=== PATIENT | female | born 1950 | race Caucasian/White ===

== ENCOUNTER → 2016-04-26 12:55 | Outpatient (CLI) | payer MEDICARE, MEDICAID ==
[2013-09-06] VITALS: BMI 25.7
[~2016-04-26 12:55] MED LIST: ASPIRIN325 MG PO; BENZONATATE200 MG PO; ELAVIL25 MG PO; FLORAJEN3 CAPS460 MG PO; GLUCOPHAGE1000 MG PO; HUMALOG 30100 UNITS/ SC; HUMALOG MIX 75/10 ML SQ; HYDROCODONE-APA1 TAB PO; IMDUR30 MG PO; IMDUR60 MG PO; IPRAT-ALBUT 0.5-3 ML UPD; LANTUS INSULIN10 ML SC; LEVEMIR100 U/M1 SC; LEXAPRO10 MG PO; LIPITOR80 MG PO; LISINOPRIL5 MG PO; METOPROLOL TART50 MG PO; MUCINEX600 MG PO; NEURONTIN 400400 MG PO; NITROSTAT0.4 MG SL; PLAVIX75 MG PO; PREDNISONE10 MG PO; TOPROL XL25 MG PO; VIBRAMYCIN 100100 MG PO
[2016-07-03 13:38] VITALS: BMI 22.3
== END | disposition home or self-care (01) ==
LOC: D.MRI 12:00
DX: R53.1 Weakness (principal)

== ENCOUNTER → 2016-05-08 13:05 | Outpatient (CLI) | payer MEDICARE, MEDICAID ==
[2013-09-06] VITALS: BMI 25.7
[~2016-05-08 13:05] MED LIST changes: +LOPRESSOR25 MG PO; +MIDODRINE HCL5 MG PO
[2016-07-29 11:50] VITALS: BMI 21.4
== END | disposition home or self-care (01) ==
LOC: D.US 13:05
DX: R41.3 Other amnesia (principal); N64.4 Mastodynia; I25.10 Atherosclerotic heart disease of native coronary artery without angina pectoris; I65.23 Occlusion and stenosis of bilateral carotid arteries

== ENCOUNTER 2016-06-02 22:58 | Emergency (ER) | payer MEDICARE, MEDICAID ==
[2013-09-06] VITALS: BMI 25.7
[~2016-06-02 22:58] MED LIST changes: -BENZONATATE200 MG PO; -ELAVIL25 MG PO; -FLORAJEN3 CAPS460 MG PO; -GLUCOPHAGE1000 MG PO; -HYDROCODONE-APA1 TAB PO; -IPRAT-ALBUT 0.5-3 ML UPD; -LEVEMIR100 U/M1 SC; -LISINOPRIL5 MG PO; -LOPRESSOR25 MG PO; -MIDODRINE HCL5 MG PO; -MUCINEX600 MG PO; -PREDNISONE10 MG PO; -VIBRAMYCIN 100100 MG PO
== END 2016-06-03 01:00 | disposition home or self-care (01) ==
LOC: D.ER 22:58
DX: S80.02XA Contusion of left knee, initial encounter (principal); S80.01XA Contusion of right knee, initial encounter; W19.XXXA Unspecified fall, initial encounter; Y93.89 Activity, other specified; Y92.59 Other trade areas as the place of occurrence of the external cause; M25.561 Pain in right knee; R07.81 Pleurodynia; F17.200 Nicotine dependence, unspecified, uncomplicated; E78.00 Pure hypercholesterolemia, unspecified; I10 Essential (primary) hypertension; E11.9 Type 2 diabetes mellitus without complications; Z79.4 Long term (current) use of insulin; I63.9 Cerebral infarction, unspecified; G81.94 Hemiplegia, unspecified affecting left nondominant side

== ENCOUNTER 2016-07-02 01:42 | Inpatient (IN) | payer MEDICARE ==
[~2016-07-02] VITALS: Ht 172.7 cm; Wt 72.4 kg
[2016-07-02 02:15] LABS: HEMOGLOBIN 15.2 g/dL (12-16); LYMPHOCYTES 9.8 % (15-50); MCH 28.5 pg (26.0-34.0); MCHC 34.5 g/dL (31.0-37.0); MCV 82.6 fL (80.0-100.0); MEAN PLATELET VOLUME 11.4 fL (7.4-10.4); NEUTROPHILS 80.7 % (40-80); RBC 5.33 10x6/uL (4.00-5.40); RDW 13.3 % (11.5-14.5); WBC 10.1 10x3/uL (4.8-10.8)
[2016-07-02 02:21] LABS: PLATELET COUNT 100 10x3/uL (130-400)
[2016-07-02 02:26] LABS: ALBUMIN 2.7 g/dL (3.4-5.0); ANION GAP 12.1 mmol/L (8-16); BILIRUBIN - TOTAL 0.73 mg/dL (0.2-1.3); CALCIUM 8.8 mg/dL (8.5-10.1); CARBON DIOXIDE 27.7 mmol/L (21.0-32.0); CREATININE - SERUM 1.1 mg/dL (0.6-1.3); POTASSIUM - SERUM 3.8 mmol/L (3.5-5.1); PROTEIN - SERUM 6.7 g/dL (6.4-8.2)
--- NOTE | 2016-07-02 07:35 | NUR ---
RECEIVED PATIENT VIA WHEELCHAIR FROM ED. PATIENT ALERT/ORIENTED. ASSISTED TO RESTROOM. CALL LIGH PLACED WITHIN REACH. O2 AT 2L VIA NASAL CANULA. 18 GAUGE SALINE LOCKED TO LEFT HAND. PATIENT ASSISTED TO RESTROOM. NO DISTRESS.
[2016-07-02] MEDS ORDERED: LISINOPRIL5 MG PO (09:48)
[2016-07-02] MEDS ORDERED: GLUCOPHAGE1000 MG PO (09:49)
[2016-07-02 09:56] VITALS: BP 105/59; BMI 22.2
--- NOTE | 2016-07-02 10:06 | NUR ---
ASSESSMENT, HISTORY AND MED REC COMPLETED. SCDS EXPLAINED TO PATIENT AND PATIENT REFUSES AT THIS TIME. NON SLIP SOCKS APPLIED AND PT ASKED TO CALL FOR ASSISTANCE.
[2016-07-02 11:38] VITALS: BP 141/79
--- NOTE | 2016-07-02 14:10 | NUR ---
DANIEL LOCKE PAGED TO REQUEST MEDICATION FOR PATIENT FOR HEADACHE. PATIENT STATES SHE NORMALLY TAKES IBUPROFEN AT HOME. AWAITING CALL BACK.
--- NOTE | 2016-07-02 14:51 | NUR ---
MEDICATED FOR HEADACHE AT THIS TIME. NON PRODUCTIVE COUGH NOTED.
[2016-07-02 16:18] VITALS: BP 145/81
--- NOTE | 2016-07-02 17:20 | NUR ---
FSBS 309. 8 UNITS HUMALOG ADMINISTERED PER SLIDING SCALE. NO DISTRESS.
[2016-07-02 20:00] VITALS: BP 111/65
--- NOTE | 2016-07-02 20:08 | NUR ---
PT AWAKE, ALERT, ORIENTED, HAVING HYPOXIC EPISODES, O2 SAT @ 88% ON 2 LPM. I DISCUSSED WITH RT, INCREASING O2 VIA NC TO 3LPM. PT IS IN NO ACUTE DISTRESS. CONTINUE TO MONITOR CLOSELY.
[2016-07-03] VITALS: BP 115/67
--- NOTE | 2016-07-03 00:21 | NUR ---
PT IS REQUESTING HER AMITRIPTYLINE FOR SLEEP, ALONG WITH SOMETHING FOR CONSISTENT COUGH AND INCREASED CONGESTION, AND HER PRN NORCO FOR PAIN R/T HER CHRONIC WOUND ON HER LEFT LEG. WILL CALL ON-CALL PHYSICIAN/CABANA ATTENDANT FOR ORDERS. CONTINUE TO MONITOR CLOSELY.
[2016-07-03 04:00] VITALS: BP 112/60
[2016-07-03 04:40] LABS: BASOPHILS 0.1 % (0.0-2.0); EOSINOPHILS 0 % (0-7); HEMATOCRIT 41.9 % (36.0-48.0); HEMOGLOBIN 14.2 g/dL (12-16); IMMATURE GRANULOCYTES 0.3 % (0-5); MCH 28.3 pg (26.0-34.0); MCHC 33.9 g/dL (31.0-37.0); MCV 83.6 fL (80.0-100.0); MEAN PLATELET VOLUME 11.6 fL (7.4-10.4); MONOCYTES 10.3 % (2-11); NEUTROPHILS 83.3 % (40-80); RBC 5.01 10x6/uL (4.00-5.40); RDW 13.2 % (11.5-14.5)
[2016-07-03 05:03] LABS: PLATELET COUNT 122 10x3/uL (130-400)
[2016-07-03 05:23] LABS: ANION GAP 12.9 mmol/L (8-16); CALCIUM 8.7 mg/dL (8.5-10.1); POTASSIUM - SERUM 3.9 mmol/L (3.5-5.1)
--- NOTE | 2016-07-03 05:30 | NUR ---
PT LYING IN BED, EYES CLOSED, RESPIRATIONS EVEN AND UNLABORED. PT IS EASILY ROUSABLE TO VERBAL STIMULI, DENIES ANY NEEDS. CONTINUE TO MONITOR CLOSELY.
--- NOTE | 2016-07-03 07:00 | NUR ---
PT. WAS RECEIVED AT THE BEGINNING OF THIS SHIFT AWAKE AND ORIENTED X 3. NO VERBAL COMPLAINTS AT THIS TIME. VITAL SIGNS WNL. LEFT HAND WITH SALINE LOCK THAT IS PATENT. WILL BE MONITORING HER AND ASSISTING PRN WITH ADL'S. CALL LIGHT IS IN REACH. 02 PER NC GOING AT 2L/MIN.
[2016-07-03 08:00] VITALS: BP 104/64
[2016-07-03 12:00] VITALS: BP 107/55
[2016-07-03] MEDS ORDERED: ELAVIL25 MG PO (12:06)
[2016-07-03] MEDS ORDERED: HYDROCODONE-APA1 TAB PO (12:07)
[2016-07-03 13:38] VITALS: Ht 172.7 cm; Wt 72.4 kg
--- NOTE | 2016-07-03 15:18 | NUR ---
PT. WAS GIVEN A TYLENOL 650MG AT 11:30AM. DR. GRAY GAVE NEW ORDER FOR HYDROCODONE 10MG ONE TIME DOSE DUE TO PT CALLING HIS OFFICE AND WANTING SOMETHING STRONGER THAN TYLENOL. WILL MONITOR FOR ANY ADVERSE REACTION. CALL LIGHT IS IN REACH.
--- NOTE | 2016-07-03 15:24 | NUR ---
TYLENOL WAS GIVEN AT 11:30AM FOR A HEADACHE. THE NOTE ABOVE REGARDING DR. GRAY WAS CHARTED ON WRONG PT. THIS PT. DID GET A NORCO 10MG AT 1:00PM FOR A HEADACHE WELL.
[2016-07-03 17:21] VITALS: BP 96/49
--- NOTE | 2016-07-03 19:24 | NUR ---
PT AWAKE, ALERT, ORIENTED, DENIES ANY NEEDS. PT STATES SHE IS FEELING BETTER. CONTINUE TO MONITOR CLOSELY.
[2016-07-03 20:00] VITALS: BP 99/42
--- NOTE | 2016-07-03 22:20 | NUR ---
[facility]T 478 GLUCOSE. WILL RECHECK AFTER 20 UNITS OF HUMALOG.
[2016-07-04] VITALS: BP 121/75
--- NOTE | 2016-07-04 00:28 | NUR ---
SPOKE WITH CORNELIA PIERRE R/T PTS FSBS. WILL ADMINISTER HUMALOG PER INTERMEDIATE S/S AND RECHECK PRN. CONTINUE TO MONITOR CLOSELY.
[2016-07-04 04:00] VITALS: BP 112/69
--- NOTE | 2016-07-04 04:52 | NUR ---
PT LYING IN BED, EYES CLOSED, RESPIRATIONS EVEN AND UNLABORED. PT EASILY ROUSABLE TO VERBAL STIMULI. CONTINUE TO MONITOR CLOSELY.
[2016-07-04 05:41] LABS: BASOPHILS 0.1 % (0.0-2.0); EOSINOPHILS 0.1 % (0-7); HEMATOCRIT 38.6 % (36.0-48.0); HEMOGLOBIN 13.3 g/dL (12-16); IMMATURE GRANULOCYTES 0.6 % (0-5); LYMPHOCYTES 10.3 % (15-50); MCH 28.7 pg (26.0-34.0); MCHC 34.5 g/dL (31.0-37.0); MCV 83.4 fL (80.0-100.0); MONOCYTES 14.4 % (2-11); NEUTROPHILS 74.5 % (40-80); PLATELET COUNT 142 10x3/uL (130-400); RBC 4.63 10x6/uL (4.00-5.40); RDW 13.2 % (11.5-14.5)
[2016-07-04 05:45] LABS: WBC 11.5 10x3/uL (4.8-10.8)
--- NOTE | 2016-07-04 05:54 | NUR ---
SKILLED NURSING CASE MANAGER EDEN INFORMED ME THAT PT HAD A RUN OF V-TACH/230 BPM @ APPROX 02:30 THIS AM. PT STATES THAT SHE DOES HAVE A HX OF DYSRHYTHMIA. PT STATES SHE CAN TELL SOMETIMES WHEN HER HURT STARTS TO BEAT ABNORMALLY, BUT DENIES FEELING ANYTHING DURING THIS EPISODE. PT IS ALSO CONCERNED THAT SHE MAY HAVE TO GO HOME WITH O2, AND IS ASKING IF SHE WILL BE D/C'D TODAY. WILL CONTINUE TO MONITOR CLOSELY.
[2016-07-04 05:56] LABS: ANION GAP 10.2 mmol/L (8-16); CALCIUM 8.7 mg/dL (8.5-10.1); CARBON DIOXIDE 31.5 mmol/L (21.0-32.0); CREATININE - SERUM 0.9 mg/dL (0.6-1.3); POTASSIUM - SERUM 3.7 mmol/L (3.5-5.1)
--- NOTE | 2016-07-04 07:28 | NUR ---
RESTS IN BED. RESP UL ON . IV PATENT. NO NEEDS VOICED. CALL LIGHT IN REACH. WILL CONT. PLAN OF CARE.
[2016-07-04 08:13] VITALS: BP 131/80
[2016-07-04 11:38] VITALS: BP 134/73
[2016-07-04 15:20] VITALS: BP 128/77
--- NOTE | 2016-07-04 19:46 | NUR ---
RESUMED CARE OF PT, 02-2L, IV-L. HAND-SL, [id number], SITTING UP IN CHAIR, DENIES ANY NEEDS, CALL LIGHT IN REACH, WILL CONTINUE TO MONITOR
[2016-07-04 20:00] VITALS: BP 135/72
[2016-07-05] VITALS: BP 142/76
[2016-07-05 04:00] VITALS: BP 123/72
--- NOTE | 2016-07-05 05:15 | NUR ---
HEALTH CARE LAW SPECIALIST AT BEDSIDE TO OBTAIN VITALS, CALL LIGHT IN REACH. WILL CONTINUE WITH PLAN OF CARE.
[2016-07-05 05:41] LABS: BASOPHILS 0.1 % (0.0-2.0); EOSINOPHILS 0.1 % (0-7); HEMATOCRIT 40.8 % (36.0-48.0); HEMOGLOBIN 13.5 g/dL (12-16); IMMATURE GRANULOCYTES 0.8 % (0-5); MCH 28.1 pg (26.0-34.0); MCHC 33.1 g/dL (31.0-37.0); MEAN PLATELET VOLUME 11.7 fL (7.4-10.4); PLATELET COUNT 153 10x3/uL (130-400); RDW 13.1 % (11.5-14.5); WBC 10.8 10x3/uL (4.8-10.8)
[2016-07-05 05:55] LABS: CALC OSMOLALITY 292 mosm/kg (275-300); CALCIUM 8.6 mg/dL (8.5-10.1); CARBON DIOXIDE 31.1 mmol/L (21.0-32.0); CHLORIDE - SERUM 103 mmol/L (98-107); CREATININE - SERUM 0.7 mg/dL (0.6-1.3); GLUCOSE 317 mg/dL (74-106); SODIUM 139 mmol/L (136-145); UREA NITROGEN 22 mg/dL (7-18); eGFR NON AFRICAN AMERICAN 89 mL/min (90-120)
[2016-07-05 08:31] VITALS: BP 165/94
--- NOTE | 2016-07-05 09:22 | NUR ---
SITTING UP IN CHAIR. PT HERE TO WALK PT IN HALLWAY. TUBING FOR IV AND IV PIGGY BACK CHANGED. COUGHING BUT NO SPUTUM. NICODERM PATCH PLACED ON LEFT ARM
[2016-07-05 12:47] VITALS: BP 127/68
--- NOTE | 2016-07-05 14:54 | EC ---
PATIENT:YINKA JACKSON DATE OF SERVICE: 07/02/16 SEX: F MEDICAL RECORD: [id number] DATE OF : [birth year] LOCATION:D. D.210 AGE OF PATIENT: 66 ADMISSION DATE: 07/02/16 REFERRING PHYSICIAN: INTERPRETING PHYSICIAN: CEE ZAPATA M.D. ECHOCARDIOGRAM REPORT ECHO CHARGES 4 ECHO COMPLETE CLINICAL DIAGNOSIS: DYSPNEA ECHOCARDIOGRAPHIC MEASUREMENTS (adult normal given) AC root (d.<3.7cm) 3.0 LV Septum d (<1.2 cm> 1.5 Valve Excursion 2.0 LV Septum (systole) 2.0 Left Atria (s.<4.0cm> 5.0 LVPW d(<1.2cm) 1.6 RV (d.<2.3cm) 2.3 LVPW (sytole) 1.9 LV diastole(<5.6CM) 5.0 MV E-F(>70mm/sec) LV systole 3.3 LVOT Diameter 1.9 MV exc.(>10mm) Est.ejection fraction (50-75%) Pericardial Effusion N DOPPLER: LVIT A 48.0 E 109 LA RVSP 38.5 LVOT 85.0 AOP1/2T Asc. Ao 171 RVOT 83.0 RA PA 109 AV Gradient Peak 12.0 AV Mean 5.7 AV Area 1.4 MV Gradient Peak 6.7 MV Mean 2.4 MV Area COMMENTS: Brass Molder Helper: Nigel TEJEDAOE Time Cycle Operator:1 Dr. Watson TAPE# PACS DATE OF SERVICE: 07/03/2016 Echocardiogram Report REFERRING PHYSICIAN: Marily Henderson MD INDICATION: Dyspnea. DESCRIPTION: Left ventricle demonstrates left ventricular hypertrophy. There is mild LV dysfunction noted. Estimated ejection is in the order of 40%. ECHOCARDIOGRAM REPORT [id number] YINKA JACKSON Mitral valve is structurally normal. There is ____ regurgitation seen. Left atrium is moderately dilated. The aortic valve is trileaflet. There is no stenosis or regurgitation seen. Right ventricle is normal size and function. Tricuspid valve is structurally normal. There is mild to moderate regurgitation noted. Right ventricular systolic pressure is elevated at 38 mmHg. There is no pericardial effusion seen. IMPRESSION: 1. Left ventricular hypertrophy with mild left ventricular dysfunction with ejection fraction of 40%. 2. Mild mitral regurgitation. 3. Mild to moderate tricuspid regurgitation. TRANSINT:[id number] Voice Confirmation ID: [id number] DOCUMENT ID: [id number] CEE ZAPATA M.D. at 1454 CC: [id number] DICTATION DATE: 07/04/16 1023 ESCAPEMENT MATCHER: 07/04/16 1230 ADM IN [place] [id number] [place] [id number]
--- NOTE | 2016-07-05 16:34 | NUR ---
Patient Name: YINKA JACKSON Admission Status: ER Accout number: [id number] Admission Date: 07-02-2016 : 1950 Admission Diagnosis:CHRONIC OBSTRUCTIVE PULMONARY DISEASE W (ACUTE) EXACERB Attending: JANNA Current LOS: 3 Anticipated DC Date: Planned Disposition: Home Primary Insurance: MEDICARE A & B Discharge Planning Comments: * Is the patient Alert and Oriented? Yes 0 * How many steps to enter\exit or inside your home? 4 0 * PCP DR. BURGESS 0 * Pharmacy [address] 0 * Preadmission Environment Home with Family 0 * ADLs Independent 0 * Equipment Cane 0 * Other Equipment NO MEDICAL EQUIPMENT PROVIDER PREFERENCE 0 * List name and contact numbers for known caregivers / representatives who currently or will assist patient after discharge: CORINNE BYNUME, DTR, 0 * Community resources currently utilized None 0 * Please name any agencies selected above. NONE 0 * Additional services required to return to the preadmission environment? No 0 * Can the patient safely return to the preadmission environment? Yes 0 * Has this patient been hospitalized within the prior 30 days at any hospital? No 0 CM MET WITH PT IN ROOM TO DISCUSS DISCHARGE PLANNING AND NEEDS. PT REPORTS LIVING AT HOME INDEPENDENTLY, HER ADULT DAUGHTER LIVES WITH HER. PT HAS A CANE WITH NO MEDICAL EQUIPMENT PROVIDER PREFERENCE. PT HAS NO OUTSIDE SERVICES ASSISTING IN THE HOME. CM DISCUSSED AVAILABILITY OF HOME HEALTH, REHAB SERVICES AND MEDICAL EQUIPMENT. PT DENIES DISCHARGE NEEDS, REPORTS HER DAUGHTER WILL PICK HER UP FOR DISCHARGE HOME. IMPORTANT MESSAGE FROM MEDICARE PROVIDED AND EXPLAINED. PT PLANS TO DISCHARGE HOME WITH FAMILY, DOES NOT ANTICIPATE ANY DISCHARGE NEEDS. CM TO FOLLOW AND ASSIST NEEDED. Television Operator: Sarkis Person
[2016-07-05 18:07] VITALS: BP 147/82
[2016-07-05 19:00] VITALS: BP 123/66
--- NOTE | 2016-07-05 19:42 | NUR ---
RECEIVED REPORT FROM DAY NURSE. PT SITTING UP IN CHAIR, DENIES ANY NEEDS, CALL LIGHT IN REACH, WILL CONTINUE TO MONITOR
[2016-07-06] VITALS: BP 147/84
--- NOTE | 2016-07-06 01:21 | NUR ---
PT SLEEPING, ZOSYN INFUSING OVER 4 HRS, CALL LIGHT IN REACH
[2016-07-06 05:07] VITALS: BP 146/85
[2016-07-06 05:30] LABS: BASOPHILS 0.1 % (0.0-2.0); EOSINOPHILS 0 % (0-7); HEMATOCRIT 42.2 % (36.0-48.0); IMMATURE GRANULOCYTES 1.8 % (0-5); LYMPHOCYTES 8.2 % (15-50); MCH 28.2 pg (26.0-34.0); MCHC 33.2 g/dL (31.0-37.0); MCV 85.1 fL (80.0-100.0); MEAN PLATELET VOLUME 11.6 fL (7.4-10.4); MONOCYTES 9.3 % (2-11); NEUTROPHILS 80.6 % (40-80); PLATELET COUNT 169 10x3/uL (130-400); RBC 4.96 10x6/uL (4.00-5.40); RDW 12.9 % (11.5-14.5); WBC 10.4 10x3/uL (4.8-10.8)
[2016-07-06 05:56] LABS: CALCIUM 8.4 mg/dL (8.5-10.1); CARBON DIOXIDE 35.2 mmol/L (21.0-32.0); CHLORIDE - SERUM 103 mmol/L (98-107); CREATININE - SERUM 0.7 mg/dL (0.6-1.3); MAGNESIUM - SERUM 1.6 mg/dL (1.8-2.4); PHOSPHOROUS 3.7 mg/dL (2.5-4.9); POTASSIUM - SERUM 3.8 mmol/L (3.5-5.1); PRO BNP 4739 pg/mL (0-125); SODIUM 141 mmol/L (136-145); eGFR NON AFRICAN AMERICAN 89 mL/min (90-120)
[2016-07-06 06:04] LABS: CALC OSMOLALITY 288 mosm/kg (275-300); GLUCOSE 221 mg/dL (74-106); UREA NITROGEN 16 mg/dL (7-18)
--- NOTE | 2016-07-06 07:39 | NUR ---
PT IN BED RESTING WITH EYES CLOSED. NO DISTRESS NOTED AT THIS TIME. IV TO LEFT HAND AT KVO. O2 AT 2 LITERS PER NC. SR UP X 2 C/L IN REACH. WILL CONT TO MONITOR.
[2016-07-06 08:08] VITALS: BP 160/86
[2016-07-06 08:15] LABS: IMMUNOGLOBULIN E 559 IU/mL (0-100)
--- NOTE | 2016-07-06 09:45 | NUR ---
PT C/O PAIN TO LEFT HAND THAT HAD IV IN IT. IV HAD INFILTRATED AND HAND BECOME SWOLLEN, REMOVED IV. RESTARTED TI TO RIGHT FORARM WITH 22GAUGE X 1 ATTEMPT. PT C/O PAIN IN HEAD AND HAND AND REQUEST A NORCO WITH HER MORNING MEDS.
--- NOTE | 2016-07-06 10:20 | NUR ---
UP SOB WITH CALL LIGHT IN REACH. RESP UL ON . IV PATENT. WILL CONT. PLAN OF CARE.
[2016-07-06 11:57] VITALS: BP 157/97
--- NOTE | 2016-07-06 14:37 | NUR ---
PT IN BED RESTING WITH EYES CLOSED. NO C/O VOICED AT THIS TIME. WILL MONITOR.
[2016-07-06 16:07] VITALS: BP 137/72
--- NOTE | 2016-07-06 19:30 | NUR ---
ASSESSMENT COMPLETE, DENIES NEEDS AT THIS TIME. UP AD ALDA W/O DIFF. RT FA IV WITH NS AT KVO VIA PUMP. NO R/S NOTED AT SITE. O2 @ 2L NC IN PLACE. SR PER FREIGHT RATE ANALYST. CONTINUE TO MONITOR.
[2016-07-06 21:16] VITALS: BP 135/75
[2016-07-07 00:30] VITALS: BP 164/90
--- NOTE | 2016-07-07 01:59 | NUR ---
EYES CLOSED, RESP EVEN AND UNLAB, NO S/S OF ACUTE DISTRESS NOTED. C/L IN REACH.
--- NOTE | 2016-07-07 02:23 | NUR ---
UP WALKING IN [place]ODSON W/O DIFF. MERLENE WELL. VOICES NO C/O PAIN OR DISCOMFORT AT THIS TIME. CONTINUE TO MONITOR.
[2016-07-07 04:30] VITALS: BP 181/99
[2016-07-07 05:07] LABS: BASOPHILS 0.1 % (0.0-2.0); EOSINOPHILS 0 % (0-7); HEMATOCRIT 43.2 % (36.0-48.0); HEMOGLOBIN 14.2 g/dL (12-16); IMMATURE GRANULOCYTES 4.1 % (0-5); LYMPHOCYTES 5.9 % (15-50); MCH 27.8 pg (26.0-34.0); MCHC 32.9 g/dL (31.0-37.0); MCV 84.7 fL (80.0-100.0); MEAN PLATELET VOLUME 11.4 fL (7.4-10.4); MONOCYTES 8.8 % (2-11); NEUTROPHILS 81.1 % (40-80); PLATELET COUNT 183 10x3/uL (130-400); RDW 12.9 % (11.5-14.5); WBC 8.6 10x3/uL (4.8-10.8)
[2016-07-07 05:20] LABS: CALC OSMOLALITY 288 mosm/kg (275-300); CALCIUM 8.7 mg/dL (8.5-10.1); CARBON DIOXIDE 34.9 mmol/L (21.0-32.0); CHLORIDE - SERUM 101 mmol/L (98-107); CREATININE - SERUM 0.7 mg/dL (0.6-1.3); GLUCOSE 263 mg/dL (74-106); POTASSIUM - SERUM 3.7 mmol/L (3.5-5.1); SODIUM 139 mmol/L (136-145); UREA NITROGEN 19 mg/dL (7-18); eGFR NON AFRICAN AMERICAN 89 mL/min (90-120)
[2016-07-07 07:54] VITALS: BP 154/93
[2016-07-07 12:22] VITALS: BP 131/69
[2016-07-07 15:45] VITALS: BP 123/64
[2016-07-07 20:00] VITALS: BP 118/58
--- NOTE | 2016-07-07 21:34 | NUR ---
PT AWAKE, ALERT, ORIENTED, IS WANTING A TURKEY SANDWICH AND PUDDING. PT IS DEMONSTRATING INCREASED ANXIETY AND AGITATION THIS EVENING. SHE ALSO STATES THE ELAVIL IS NOT HELPING WITH HER SLEEP. PT DENIES ANY OTHER NEEDS. CONTINUE TO MONITOR CLOSELY. BED LOW, CALL LIGHT IN REACH, SIDE RAILS X 2, HOB 20 DEGREES.
--- NOTE | 2016-07-07 22:27 | NUR ---
GAVE TURKEY SANDWICH AND CHOCOLATE PUDDING
[2016-07-08] VITALS: BP 137/86
--- NOTE | 2016-07-08 00:59 | NUR ---
IV TO RIGHT FOREARM HAS INFILTRATED. WILL RESITE.
--- NOTE | 2016-07-08 02:44 | NUR ---
PT AWAKE, ALERT, ORIENTED, SITTING UP IN CHAIR. PT STATES SHE IS FEELING SOME BETTER FAR HER ANXIETY GOES. PT WOULD LIKE A MILD PRN SEDATIVE TO TAKE WHEN SHE HAS HEART FLUTTERS AND INCREASED ANXIETY. WILL DISCUSS WITH DAY SHIFT. DENIES ANY OTHER NEEDS. CONTINUE TO MONITOR CLOSELY.
[2016-07-08 06:49] LABS: BASOPHILS 0.1 % (0.0-2.0); EOSINOPHILS 0.1 % (0-7); HEMATOCRIT 44.1 % (36.0-48.0); HEMOGLOBIN 14.8 g/dL (12-16); IMMATURE GRANULOCYTES 2.3 % (0-5); LYMPHOCYTES 10.2 % (15-50); MCH 28.2 pg (26.0-34.0); MCHC 33.6 g/dL (31.0-37.0); MCV 84.2 fL (80.0-100.0); MEAN PLATELET VOLUME 11.3 fL (7.4-10.4); MONOCYTES 9.9 % (2-11); NEUTROPHILS 77.4 % (40-80); PLATELET COUNT 191 10x3/uL (130-400); RBC 5.24 10x6/uL (4.00-5.40); RDW 13.1 % (11.5-14.5); WBC 8.4 10x3/uL (4.8-10.8)
[2016-07-08 07:07] LABS: CALC OSMOLALITY 288 mosm/kg (275-300); CALCIUM 8.8 mg/dL (8.5-10.1); CARBON DIOXIDE 33.6 mmol/L (21.0-32.0); CHLORIDE - SERUM 98 mmol/L (98-107); CREATININE - SERUM 0.8 mg/dL (0.6-1.3); GLUCOSE 295 mg/dL (74-106); POTASSIUM - SERUM 3.7 mmol/L (3.5-5.1); SODIUM 137 mmol/L (136-145); eGFR NON AFRICAN AMERICAN 76 mL/min (90-120)
[2016-07-08 07:10] LABS: UREA NITROGEN 24 mg/dL (7-18)
[2016-07-08 08:50] VITALS: BP 147/76
[2016-07-08 12:26] LABS: VANCOMYCIN - TROUGH 15.2 ug/mL (10.0-20.0)
[2016-07-08 12:33] VITALS: BP 152/77
--- NOTE | 2016-07-08 13:03 | NUR ---
ALERT AND ORIENTED X4. SITTING UP ON SIDE OF BED. AT 1130 FSBS 441. NOTIFY DANIEL LOCKE. 24 UNITS HUMALOG GIVEN PER ORDER. STAT GLUCOSE FROM LAB ORDERED. LAB GLUCOSE 433. 1303 FSBS RECHECKED. FSBS 405. CONTINUE TO MONITOR. PAIN MANAGEMENT FOR HEADACHES CONTINUED. SOB STABLE. SINUS RHTHYM 88bpm ON TELEMETRY. NO SCDs. RECIEVES LOVENOX INJ. BED LOCKED AND LOW. CALL LIGHT IN REACH. TWO SIDERAILS UP.
--- NOTE | 2016-07-08 15:33 | NUR ---
Nutrition follow-up: Diet: ADA consistent CHO PO intake 75-100% of meals; 75% of snacks +BM Labs: Glucose very high due to steroid use->steroids are being tapered now Wt: 157# Pt has been started on Megace. Will continue to provide food choices and honor food preferences within diet restrictions. RDN following.
--- NOTE | 2016-07-08 15:36 | NUR ---
ALERT AND ORIENTED X4. PAIN MANAGEMENT CONTINUED FOR HEADACHES. DENIES SOB. SHOWER AND LINEN CHANGE COMPLETE. SINUS RHTHYM ON TELEMETRY. CONTINUE PLAN OF CARE AND SAFETY PRECAUTIONS.
[2016-07-08 16:15] VITALS: BP 153/69
--- NOTE | 2016-07-08 18:17 | NUR ---
ALERT AND ORIENTED X4. SITTING UP IN CHAIR WATCHING TV. DENIES PAIN. RECIEVING UPDRAFT. SINUS RHTHYM 71bpm ON TELEMETRY. PREPARE SHIFT CHANGE REPORT. CONTINUE PLAN OF CARE AND SAFETY PRECAUTIONS.
--- NOTE | 2016-07-08 19:52 | NUR ---
PT AWAKE, ALERT, ORIENTED, WALKING FROM ROOM TO DESK TO ASK FOR ICE. PT DENIES ANY NEEDS AT THIS TIME, AND STATES SHE IS FEELING BETTER. WILL CONTINUE TO MONITOR CLOSELY.
[2016-07-08 20:00] VITALS: BP 126/74
[2016-07-09] VITALS: BP 140/77
--- NOTE | 2016-07-09 02:54 | NUR ---
PT LYING IN BED, EYES CLOSED, RESPIRATIONS EVEN AND UNLABORED. PT EASILY ROUSABLE TO VERBAL STIMULI, DENIES ANY ACUTE NEEDS. CONTINUE TO MONITOR CLOSELY.
[2016-07-09 04:00] VITALS: BP 168/95
[2016-07-09 05:48] LABS: BASOPHILS 0.1 % (0.0-2.0); EOSINOPHILS 0.3 % (0-7); HEMATOCRIT 42.2 % (36.0-48.0); HEMOGLOBIN 13.9 g/dL (12-16); IMMATURE GRANULOCYTES 1.6 % (0-5); LYMPHOCYTES 8.1 % (15-50); MCH 27.7 pg (26.0-34.0); MCHC 32.9 g/dL (31.0-37.0); MCV 84.2 fL (80.0-100.0); MONOCYTES 8.2 % (2-11); NEUTROPHILS 81.7 % (40-80); PLATELET COUNT 204 10x3/uL (130-400); RBC 5.01 10x6/uL (4.00-5.40); RDW 13.1 % (11.5-14.5); WBC 10.3 10x3/uL (4.8-10.8)
[2016-07-09 06:12] LABS: CALC OSMOLALITY 292 mosm/kg (275-300); CALCIUM 8.2 mg/dL (8.5-10.1); CHLORIDE - SERUM 102 mmol/L (98-107); CREATININE - SERUM 0.8 mg/dL (0.6-1.3); POTASSIUM - SERUM 4.2 mmol/L (3.5-5.1); SODIUM 141 mmol/L (136-145); UREA NITROGEN 27 mg/dL (7-18); eGFR NON AFRICAN AMERICAN 76 mL/min (90-120)
[2016-07-09 06:13] LABS: GLUCOSE 218 mg/dL (74-106)
--- NOTE | 2016-07-09 06:32 | NUR ---
ALVERTO CRACKERS GIVEN WITH INSULIN
--- NOTE | 2016-07-09 07:15 | NUR ---
RECEIVED REPORT. ASSUMED CARE OF PATIENT. RESTING ON RIGHT LATERAL SIDE WITH EYES OPEN. CALL LIGHT WITHIN REACH. NO DISTRESS. QUESTIONING IF SHE WILL GO HOME TODAY. DENIES NEEDS.
[2016-07-09 07:54] VITALS: BP 157/83
--- NOTE | 2016-07-09 11:23 | NUR ---
FSBS 278. 16 UNITS HUMALOG ADMINISTERED PER SLIDING SCALE AT THIS TIME. NO DISTRESS. CALL LIGHT WITHIN REACH.
[2016-07-09 11:46] VITALS: BP 118/61
[2016-07-09] MEDS ORDERED: BENZONATATE200 MG PO (11:46)
[2016-07-09] MEDS ORDERED: LEVEMIR100 U/M1 SC (11:47)
[2016-07-09] MEDS ORDERED: VIBRAMYCIN 100100 MG PO (11:57)
[2016-07-09] MEDS ORDERED: IPRAT-ALBUT 0.5-3 ML UPD (11:57)
[2016-07-09] MEDS ORDERED: PREDNISONE10 MG PO (11:57)
[2016-07-09] MEDS ORDERED: MUCINEX600 MG PO (12:01)
[2016-07-09] MEDS ORDERED: FLORAJEN3 CAPS460 MG PO (12:01)
--- NOTE | 2016-07-09 13:45 | NUR ---
Patient Name: YINKA JACKSON Encounter No: [id number] : 1950 Primary Insurance: MEDICARE A & B Anticipated DC Date: 07-09-2016 Planned Disposition: Home DCP follow-up note: CM RECEIVED DISCHARGE ORDER AND ORDER FOR NEBULIZER FOR HOME USE. CM MET WITH PT IN ROOM TO DISCUSS DISCHARGE NEEDS AND PLANNING. CM DISCUSSED AVAILABILITY OF HOME HEALTH, REHAB SERVICES AND MEDICAL EQUIPMENT. PT DENIES DISCHARGE NEEDS OTHER THAN THE NEBULIZER. DAUGHTER TO TRANSPORT HOME AT DISCHARGE TODAY. IMPORTANT MESSAGE FROM MEDICARE PROVIDED AND EXPLAINED. PT HAD NO PREFERENCE ON PROVIDER FOR EQUIPMENT AND WILL PICK IT UP AT LOCAL PROVIDER IF CM ARRANGES. CM CALLED JUAN C, , HINA WILL PROCESS ORDER FOR PT GRAIN MILLER HELPER TODAY. CM FAXED ORDER AND REFERRAL INFORMATION TO [facility]ARI AT [phone]. PT AND DAUGHTER NOTIFIED. Sarkis Person, CASE MANAGEMENT
--- NOTE | 2016-07-09 14:30 | NUR ---
22 GUAGE IV REMOVED FROM RIGHT WRIST. PRESSURE HELD, NO BLEEDING FROM SITE. 2X2 APPLIED AND SECURED WITH TAPE. TOLERATED IV D/C WELL. CATHETER TIP INTACT. TELEMETRY REMOVED AT THIS TIME.
--- NOTE | 2016-07-09 14:35 | NUR ---
DISCHARGE INSTRUCTIONS PROVIDED AT THIS TIME. HARD SCRIPT FOR NORCO GIVEN TO PATIENT. PATIENT VERBALZIED UNDERSTANDING OF ALL INSTRUCTIONS.
--- NOTE | 2016-07-09 14:55 | NUR ---
PATIENT LEFT UNIT VIA WHEELCHAIR WITH FAMILY AT THIS TIME. PATIENT DISCHARGED TO HOME WITH ALL PERSONAL BELONGINGS. NO ACUTE DISTRESS UPON LEAVING UNIT. PATIENT HAD NO QUESTIONS UPON LEAVING UNIT.
== END 2016-07-09 14:55 | disposition home or self-care (01) | DRG 190 ==
LOC: D.ER 01:42 → D.M2 05:21
PROVIDERS: Family Medicine; Internal Medicine Pulmonary Disease; ADMIT Family Medicine
DX: J44.0 Chronic obstructive pulmonary disease with (acute) lower respiratory infection (principal); I50.23 Acute on chronic systolic (congestive) heart failure; J15.6 Pneumonia due to other Gram-negative bacteria; J13 Pneumonia due to Streptococcus pneumoniae; J98.11 Atelectasis; J44.1 Chronic obstructive pulmonary disease with (acute) exacerbation; I11.0 Hypertensive heart disease with heart failure; E11.65 Type 2 diabetes mellitus with hyperglycemia; I25.10 Atherosclerotic heart disease of native coronary artery without angina pectoris; R51 Headache; G47.00 Insomnia, unspecified; F17.200 Nicotine dependence, unspecified, uncomplicated; I08.1 Rheumatic disorders of both mitral and tricuspid valves; Z86.73 Personal history of transient ischemic attack (TIA), and cerebral infarction without residual deficits

== ENCOUNTER 2016-07-16 02:04 | Inpatient (IN) | payer MEDICARE ==
[~2016-07-16] VITALS: Ht 172.7 cm; Wt 63.6 kg
--- NOTE | ~2016-07-16 | CN ---
PATIENT NAME:YINKA JACKSON MEDICAL RECORD: [id number] : [birth year] LOCATION:D. D.2138 ADMIT DATE: 07/16/16 ACCOUNT: [id number] CONSULTING PHYSICIAN: EMMANUEL MONDRAGON MD REFERRING PHYSICIAN: GINETTE MALONEY MD DATE OF CONSULTATION: 07/18/2016 Consult is from Ginette Maloney. HISTORY OF PRESENT ILLNESS: Ms. Jackson was admitted to the hospital with weakness and other complaints. She fell and sustained facial fractures and that is the reason I was consulted. PAST MEDICAL HISTORY: Reviewed on the chart. PHYSICAL EXAMINATION: GENERAL: She is alert, conversant, sitting in bed. She is talkative and her voice is normal. She is alert and oriented. FACE: Her face has got bilateral periorbital ecchymosis and edema over the nasal dorsum. EYES: Sclerae and conjunctivae are normal. Her extraocular movements are intact. She has no nystagmus in any field of gaze. No enophthalmos or proptosis. EARS: Canals and TMs are normal. NOSE: She has got a flattened nasal dorsum with a depressed nasal fracture. Intranasally, her septum does have a little bit of deviation to the right, but there is no evidence of a septal hematoma and she currently has a good airway on the left side, a little bit of dried blood on the right side. ORAL CAVITY AND OROPHARYNX: She has no trismus. Tongue protrudes in the midline. Palate is normal with no ecchymosis. Her midface is stable. NECK: No masses. No adenopathy. NEUROLOGICAL: Cranial nerves II through VII, XI, and XII were intact bilaterally. ____ are normal with no step-offs. No tenderness. Midface is stable. Mandible was stable with no tenderness. The CT scan, she has a depressed nasal fracture and possibly septal fracture as well with some deviation of the septum. IMPRESSION: Displaced nasal fracture and septal fracture. She does not have a septal hematoma. She is on aspirin and Plavix and probably increased the disparity of some of the ecchymosis on her face as things look a little bit worse, but I talked to her and her nurses, it is possible to consider a closed reduction nasal fracture and reduction of the septal fracture that would typically be done about a week to 10 days from now, but if she has other cardiac issues or other things to prevent surgery, then this would necessarily have to be done to be mainly cosmetic for the nose and maybe help with airway, particularly on the right side, because of the septal deviation, but it does not absolutely have to be done if she has had a recent myocardial infarction or something like that. We can see her in the clinic next week after lot of edema has gone down to reevaluate her nose and see about what they feel about her medical status. TRANSINT:[id number] Voice Confirmation ID: [id number] DOCUMENT ID: [id number] CONSULT REPORT [id number] YINKA JACKSON ERIC MD CC: WOLFGANG BURGESS MD and GINETTE MALONEY MD [id number] DICTATION DATE: 07/18/16 1446 OCC THERAPIST: 07/18/162037 ADM IN [facility] [address] [place] [address]
[~2016-07-16 02:04] MED LIST changes: +BENZONATATE200 MG PO; +ELAVIL25 MG PO; +FLORAJEN3 CAPS460 MG PO; +GLUCOPHAGE1000 MG PO; +HYDROCODONE-APA1 TAB PO; +IPRAT-ALBUT 0.5-3 ML UPD; +LEVEMIR100 U/M1 SC; +LISINOPRIL5 MG PO; +MUCINEX600 MG PO; +PREDNISONE10 MG PO; +VIBRAMYCIN 100100 MG PO
[2016-07-16 02:37] LABS: BASOPHILS 0.2 % (0.0-2.0); EOSINOPHILS 0.9 % (0-7); HEMATOCRIT 44.1 % (36.0-48.0); HEMOGLOBIN 14.9 g/dL (12-16); IMMATURE GRANULOCYTES 0.3 % (0-5); LYMPHOCYTES 18.5 % (15-50); MCH 28.5 pg (26.0-34.0); MCHC 33.8 g/dL (31.0-37.0); MCV 84.3 fL (80.0-100.0); MEAN PLATELET VOLUME 10.7 fL (7.4-10.4); MONOCYTES 13.4 % (2-11); NEUTROPHILS 66.7 % (40-80); PLATELET COUNT 240 10x3/uL (130-400); RBC 5.23 10x6/uL (4.00-5.40); RDW 13.7 % (11.5-14.5); WBC 8.8 10x3/uL (4.8-10.8)
[2016-07-16 02:57] LABS: APPEARANCE HAZY (CLEAR); BILIRUBIN NEGATIVE (NEGATIVE); COLOR YELLOW (YELLOW); GLUCOSE 1000 mg/dL (NEGATIVE); KETONE NEGATIVE (NEGATIVE); LEUKOCYTE ESTERASE NEGATIVE (NEGATIVE); NITRITE NEGATIVE (NEGATIVE); PH 6.5 (5.0-6.0); PROTEIN NEGATIVE (NEGATIVE); UROBILINOGEN NORMAL (NORMAL)
[2016-07-16 02:57] LABS: ALBUMIN 2.8 g/dL (3.4-5.0); ANION GAP 11.6 mmol/L (8-16); BILIRUBIN - TOTAL 0.46 mg/dL (0.2-1.3); CALCIUM 8.6 mg/dL (8.5-10.1); CARBON DIOXIDE 28.6 mmol/L (21.0-32.0); POTASSIUM - SERUM 4.2 mmol/L (3.5-5.1); PROTEIN - SERUM 6.7 g/dL (6.4-8.2); TROPONIN-I 0.032 ng/mL (0.000-0.060)
[2016-07-16 04:00] VITALS: BP 132/78
[2016-07-16] MEDS ORDERED: LEVEMIR100 U/M1 SC (05:02)
--- NOTE | 2016-07-16 05:15 | NUR ---
PT RECEIVED FROM TIFFANY LINDA VIA WHEELCHAIR FROM ER. PT IS AWAKE, ALERT, ORIENTED. PT STATES SHE HAS HAD MULTIPLE SYNCOPAL EPISODES SINCE BEING D/C LAST WEEK. PT STATES SHE HAS NOT BEEN ABLE TO ACQUIRE SOME OF HER NEEDED MEDICATIONS FROM D/C R/T LACK OF MONEY AND INSURANCE'S RESISTANCE TO PAY FOR IT. SHE STATES MOST OF HER D/C MEDS ARE AWAITING PRIOR AUTHORIZATION FROM HER INSURANCE COMPANY. PT HAS MILD LEFT SIDED WEAKNESS AND DEMONSTRATES OVERALL GENERALIZED WEAKNESS. PT LYING IN BED RESTING COMFORTABLY AT THIS TIME. PT IS IN NO ACUTE DISTRESS. CONTINUE TO MONITOR CLOSELY. BED LOW, CALL LIGHT IN REACH, SIDE RAILS X 2, HOB 15 DEGREES.
[2016-07-16 05:30] VITALS: BP 132/78; BMI 21.2; BMI 22.8
[2016-07-16 07:47] VITALS: BP 136/77
--- NOTE | 2016-07-16 09:10 | NUR ---
PT IS ALERT. ASSESSMENT DONE PER FLOWSHEET. NO OTHER NEEDS.
[2016-07-16 11:06] VITALS: BP 139/80
[2016-07-16 12:37] VITALS: Ht 172.7 cm; Wt 63.6 kg
--- NOTE | 2016-07-16 13:33 | NUR ---
PT IS ALERT. NO SS OF DISTRESS AT THIS TIME. WILL CONTINUE TO MONITOR.
--- NOTE | 2016-07-16 15:39 | NUR ---
Patient Name: YINKA JACKSON Admission Status: ER Accout number: [id number] Admission Date: 07-16-2016 : 1950 Admission Diagnosis: Attending: MERARI Current LOS: 1 Anticipated DC Date: TO BE DETERMINED Planned Disposition: Home with Home Health Primary Insurance: MEDICARE A & B PLANNED EXTERNAL PROVIDER: [facility] Discharge Planning Comments: * Is the patient Alert and Oriented? Yes 0 * How many steps to enter\exit or inside your home? 4 0 * PCP DR. BURGESS 0 * Pharmacy [facility] 0 * Preadmission Environment Home with Family 0 * ADLs Independent 0 * Equipment Cane Nebulizer 0 * Other Equipment [facility] - MEDICAL EQUIPMENT PROVIDER 0 * List name and contact numbers for known caregivers / representatives who currently or will assist patient after discharge: CORINNE JACKSON, DTR, 0 * Community resources currently utilized None 0 * Please name any agencies selected above. NONE 0 * Additional services required to return to the preadmission environment? Yes * Can the patient safely return to the preadmission environment? Yes 0 * Has this patient been hospitalized within the prior 30 days at any hospital? Yes 0 CM RECEIVED ORDER FOR CONSULT DUE TO PT BEING UNABLE TO GET HER MEDICATIONS FILLED. CM MET WITH PT IN ROOM TO DISCUSS DISCHARGE PLANNING AND NEEDS. PT REPORTS LIVING AT HOME INDEPENDENTLY, PT'S ADULT DAUGHTER LIVES THERE ALSO. PT HAS A CANE AND NEBULIZER AT HOME, PROVIDER IS [facility]. PT HAS NO OUTSIDE SERVICES ASSISTING IN THE HOME. CM DISCUSSED AVAILABILITY OF HOME HEALTH, REHAB SERVICES AND MEDICAL EQUIPMENT. PT THINKS THAT HOME HEALTH MAY ASSIST HER IN MANAGING HER MEDICATIONS AND SHE MAY NEED PHYSICAL THERAPY AT DISCHARGE, PT IS NOT SURE AT THIS TIME. PT REPORTS HER DAUGTHER WILL PICK HER UP FOR DISCHARGE HOME. PT RE[facility]ED [facility], CHOICE SIGNED. PT REPORTS SHE PICKED UP ALL MEDICATIONS AFTER HER LAST DISCHARGE EXCEPT TWO THAT NEEDED PRIOR AUTHORIZATION FROM THE DOCTOR AND MUCINEX SHE ALREADY HAD AT HOME. PT REPORTS SHE TRIED TO GET DR. BURGESS TO SIGN THE PAPERS BUT HE SAID HE HAD TO SEE HER ON 07-16 BEFORE SIGNING; PT REPORTS SHE FELL AND HIT HER HEAD ON HER WINDOW AT HOME AND WAS SENT HERE. CM CALLED [employer] IN [place], SPOKE TO TOY WHO REPORTS THAT PT DID NOT FIELD SERVICE ENGINEER DUONEB OR BENZONATATE, THE DUONEB PRIOR AUTH WAS FAXED TO DR. KNIGHT AND PT'S INSURANCE DOES NOT COVER THE BENZONATATE. CM NOTIFIED PT THAT THE BENZONATATE IS NOT COVERED BY INSURANCE AND REQUIRES HER TO PAY FOR THE MEDICATION TO PICK IT UP. IF PT REQUIRES DUONEB AT DISCHARGE, SHE WILL REQUIRE A DOCTOR TO COMPLETE THE PRIOR AUTHORIZATION FOR INSURANCE TO COVER THE MEDICATION. PT REPORTS PLAN TO DISCHAGE HOME, ADULT DAUGHTER LIVES WITH HER. PT WOULD LIKE HOME HEALTH SERVICES AT DISCHARGE WITH ANAT. CM TO ARRANGE IF PHYSICIAN AGREES AND PROVIDES HOME HEALTH ORDERS. Transportation Consultant: Sarkis Person
[2016-07-16 16:12] VITALS: BP 156/88
--- NOTE | 2016-07-16 16:31 | NUR ---
FSBS 270. 6 UNITS HUMALOG ADMINISTERED PER SLIDING SCALE.
--- NOTE | 2016-07-16 21:08 | NUR ---
PT AWAKE, ALERT, ORIENTED. PT DID GIVE ME PERMISSION TO DISCUSS HER HEALTHCARE WITH HER BROTHER FROM OUT OF STATE. PT STILL C/O GREAT WEAKNESS, BUT DENIES DIZZINESS OR NEAR SYNCOPE AT THIS TIME. PT STATES ALL SHE WANTS TO DO IS SLEEP. WILL GIVE CHOCOLATE PUDDING FOR HS SNACK. PT DENIES ANY OTHER NEEDS. CONTINUE TO MONITOR CLOSELY.
[2016-07-16 21:13] VITALS: BP 146/88
--- NOTE | 2016-07-17 05:50 | NUR ---
SEE PAPER CHART
--- NOTE | 2016-07-17 06:30 | NUR ---
RECEIVED PT REPORT. NO OTHER NEEDS AT THIS TIME. WILL CONTINUE POC....
[2016-07-17 06:54] LABS: BASOPHILS 0.4 % (0.0-2.0); EOSINOPHILS 1.6 % (0-7); HEMATOCRIT 40.8 % (36.0-48.0); HEMOGLOBIN 13.7 g/dL (12-16); IMMATURE GRANULOCYTES 0.7 % (0-5); LYMPHOCYTES 22.1 % (15-50); MCH 28.4 pg (26.0-34.0); MCHC 33.6 g/dL (31.0-37.0); MCV 84.5 fL (80.0-100.0); MEAN PLATELET VOLUME 11.3 fL (7.4-10.4); MONOCYTES 10.8 % (2-11); NEUTROPHILS 64.4 % (40-80); PLATELET COUNT 251 10x3/uL (130-400); RBC 4.83 10x6/uL (4.00-5.40); RDW 13.8 % (11.5-14.5); WBC 10.5 10x3/uL (4.8-10.8)
[2016-07-17 07:32] LABS: CALCIUM 8.7 mg/dL (8.5-10.1); CARBON DIOXIDE 27.7 mmol/L (21.0-32.0); CHLORIDE - SERUM 106 mmol/L (98-107); CREATININE - SERUM 0.8 mg/dL (0.6-1.3); SODIUM 143 mmol/L (136-145); UREA NITROGEN 26 mg/dL (7-18); eGFR NON AFRICAN AMERICAN 76 mL/min (90-120)
[2016-07-17 07:35] LABS: CALC OSMOLALITY 287 mosm/kg (275-300); GLUCOSE 70 mg/dL (74-106); POTASSIUM - SERUM 3.3 mmol/L (3.5-5.1)
[2016-07-17 08:37] VITALS: BP 119/62
[2016-07-17 12:32] VITALS: BP 140/78
--- NOTE | 2016-07-17 12:38 | NUR ---
PT IS ALERT. ASSESSMENT DONE PER FLOWSHEET. NO CO PAIN AT THIS TIME. WILL CONTINUE TO MONITOR. MARKED SWELLING IN NOSE AND EYES STARTING TO BRUISE FROM PT'S FALL
--- NOTE | 2016-07-17 13:05 | NUR ---
PT IS ALERT. NO SS OF DISTRESS WILL CONTINUE TO MONITOR.
[2016-07-17 16:07] VITALS: BP 176/92
--- NOTE | 2016-07-17 20:04 | NUR ---
PT C/O PAIN AT IV SIDE. IV SITE RED AND VEIN FEELS HARD TO THE TOUCH. IV REMOVED. PT GIVEN WARM COMPRESS TO APPLY TO SITE. RE-SITED IV WITH 20G TO LEFT FA X1 ATTEMPT.
--- NOTE | 2016-07-17 20:17 | NUR ---
ASSESSMENT DONE. PT'S DAUGHTER HERE. NURSE ASSISTED WITH WASHING PT'S HAIR AND CHANGING LINENS. ASSISTED PT TO BSC. DENIES DIZZINESS. EDUCATED PT ON ORTHOSTATIC HYPOTENSION, AND HOW TO GET UP SLOWLY, AND ACCLIMATE SELF TO CHANGING POSITIONS B4 ATTEMPTING TO WALK TO TRANSFER. PT DENIES NEEDS AT THIS TIME. NO DISTRESS NOTED. FAMILY IN ROOM. CALLED CORINNE CREEL CLERK AND REQUEST A FAN FOR PT'S ROOM. CALL LIGHT WITH IN REACH. WILL CONT. TO MONITOR.
[2016-07-17 20:57] VITALS: BP 160/83
--- NOTE | 2016-07-17 22:37 | NUR ---
PT SLEEPING. HOB ELEVATED. EYES CLOSED, RESP EVEN AND UNLABORED. PT BREATHING THROUGH MOUTH D/T NASAL TRAMA. NO DISTRESS NOTED. APPEARS COMFORTABLE. CALL LIGHT WITH IN REACH. SIDE RAILS UP X3 PER PT REQUEST. BED ALARM ON. WILL CONT. TO MONITOR.
[2016-07-17 23:00] VITALS: BP 168/97
--- NOTE | 2016-07-17 23:25 | NUR ---
PT C/O PAIN IN BOTH HANDS D/T FALL LAST NIGHT. GENERALIZED BRUISING NOTED WITH MILD SWELLING. NORCO GIVEN. NURSE OFFERED TO MAKE PT UP ICE PACKS FOR HANDS, AND PT DECLINED. CALL LIGHT WITH IN REACH. SIDE RAILS UP, BED ALARM ON. WILL CONT. TO MONITOR.
--- NOTE | 2016-07-18 00:58 | NUR ---
PT SLEEPING. HOB ELEVATED. EYES CLOSED. PT BREATHING THROUGH MOUTH. RESP EVEN AND UNLABORED. PT APPEARS COMFORTABLE AT THIS TIME. CALL LIGHT WITH IN REACH. BED ALARM ON. WILL CONT. TO MONITOR.
--- NOTE | 2016-07-18 02:45 | NUR ---
PT SITTING ON SIDE OF BED. BED ALARM BEEPING. PT A/O. STATES HER BACK IS HURTING. C/O PAIN IN HANDS. NURSE ASSISTED PT WITH REPOSITIONING IN BED AND APPLIED ICE PACKS TO BOTH HANDS. CALL LIGHT PLACED WITH IN REACH. WILL CONT. TO MONITOR.
--- NOTE | 2016-07-18 03:42 | NUR ---
PROGRAMMER AT BEDSIDE TO OBTAIN VITALS, CALL LIGHT IN REACH. WILL CONTINUE WITH PLAN OF CARE.
--- NOTE | 2016-07-18 04:42 | NUR ---
PT C/O NOSE AND BILATERAL HAND PAIN 01/14. STATES ICE PACKS ARE HELPING HAND PAIN SOME. NORCO GIVEN PO FOR PAIN. PT DISORIENTED TO TIME. ASKED NURSE WHEN SUPPER WAS. NURSE RE-ORIENTED PT TO TIME OF DAY. CALL LIGHT WITH IN REACH. BED ALARM ON. WILL CONT. TO MONITOR.
[2016-07-18 05:16] LABS: BASOPHILS 0.4 % (0.0-2.0); HEMATOCRIT 43.2 % (36.0-48.0); HEMOGLOBIN 14.6 g/dL (12-16); IMMATURE GRANULOCYTES 0.4 % (0-5); LYMPHOCYTES 19.6 % (15-50); MCH 28.4 pg (26.0-34.0); MCHC 33.8 g/dL (31.0-37.0); MEAN PLATELET VOLUME 11.1 fL (7.4-10.4); MONOCYTES 8.4 % (2-11); NEUTROPHILS 69.2 % (40-80); RBC 5.14 10x6/uL (4.00-5.40); RDW 13.9 % (11.5-14.5); WBC 8.3 10x3/uL (4.8-10.8)
[2016-07-18 05:22] LABS: PLATELET COUNT 199 10x3/uL (130-400)
[2016-07-18 05:31] LABS: ANION GAP 10.9 mmol/L (8-16); CALCIUM 8.4 mg/dL (8.5-10.1); CARBON DIOXIDE 27.7 mmol/L (21.0-32.0); CREATININE - SERUM 0.9 mg/dL (0.6-1.3); POTASSIUM - SERUM 3.6 mmol/L (3.5-5.1)
--- NOTE | 2016-07-18 05:36 | NUR ---
PT REFUSES TO ALLOW STAFF TO DO A FSBS D/T PT'S HANDS AND FINGERS BEING EXTREMLY SORE. WILL WAIT FOR PT'S CHEM PROFILE TO SEE IF SS INSULIN IS NEEDED.
[2016-07-18 05:47] VITALS: BP 133/76
--- NOTE | 2016-07-18 07:42 | NUR ---
AM ROUNDS - PT IN BED COMPLAINS OF BILATERAL HANDS "STINGING" WITH TOUCH. BRUISING AND SWELLING TO BILATERAL EYES. LACERATION BETWEEN UPPER LIP AND SEPTUM, LEFT ELBOW SKIN TARE. SCD SEEN TO BLE. BOX ALARM SEEN. WILL CONTINUE TO MONITOR.
[2016-07-18 08:03] VITALS: BP 127/67
--- NOTE | 2016-07-18 08:58 | NUR ---
NEW ORDERS PER DR INTERIANO.
[2016-07-18 12:10] VITALS: BP 110/68
[2016-07-18 12:14] VITALS: BP 62/40; BP 87/57
--- NOTE | 2016-07-18 15:43 | NUR ---
ORTHO STATIC VITAL SIGNS DONE. CALL PLACED TO [facility]ERRE AP[facility], NEW ORDERS RECEIVED.
[2016-07-18 15:49] VITALS: BP 61/29; BP 78/48; BP 90/47
[2016-07-18 20:00] VITALS: BP 118/70; BP 82/43; BP 87/59
[2016-07-19] VITALS (9 sets, daily range): BP systolic 59–161; BP diastolic 38–84
--- NOTE | 2016-07-19 00:30 | NUR ---
PT C/O UNRELIEVED PAIN 10/10 IN FACE/NECK/HANDS. CHANGED NORCO FROM TID TO [id number] PER TELEPHONE ORDER WITH FIRST DOSE STARTING NOW. PT RESTING BETTER. STATES SHE "MIGHT BE ABLE TO MAKE IT NOW." NO OTHER NEEDS. WILL REASSESS AND CONTINUE TO MONITOR.
[2016-07-19 05:44] LABS: BASOPHILS 0.6 % (0.0-2.0); EOSINOPHILS 2.1 % (0-7); HEMATOCRIT 37.7 % (36.0-48.0); HEMOGLOBIN 12.7 g/dL (12-16); IMMATURE GRANULOCYTES 0.4 % (0-5); LYMPHOCYTES 23.6 % (15-50); MCH 28.4 pg (26.0-34.0); MCHC 33.7 g/dL (31.0-37.0); MCV 84.3 fL (80.0-100.0); MEAN PLATELET VOLUME 10.9 fL (7.4-10.4); MONOCYTES 11.7 % (2-11); NEUTROPHILS 61.6 % (40-80); RBC 4.47 10x6/uL (4.00-5.40); RDW 14.1 % (11.5-14.5); WBC 7.1 10x3/uL (4.8-10.8)
[2016-07-19 05:55] LABS: PLATELET COUNT 158 10x3/uL (130-400)
[2016-07-19 06:00] LABS: CALC OSMOLALITY 281 mosm/kg (275-300); CALCIUM 8.3 mg/dL (8.5-10.1); CHLORIDE - SERUM 103 mmol/L (98-107); CREATININE - SERUM 0.7 mg/dL (0.6-1.3); POTASSIUM - SERUM 3.8 mmol/L (3.5-5.1); SODIUM 135 mmol/L (136-145); UREA NITROGEN 21 mg/dL (7-18); eGFR NON AFRICAN AMERICAN 89 mL/min (90-120)
[2016-07-19 06:01] LABS: GLUCOSE 258 mg/dL (74-106)
--- NOTE | 2016-07-19 07:45 | NUR ---
Awake sitting on side of bed, verbalized name of , instructed to not get up alone, to use call light to call for assistance. Verbalized understanding. Box alarm in place. Assisted to reposition back in bed, SCD hose reappliedand on.
--- NOTE | 2016-07-19 07:50 | NUR ---
am vital signs obtained B/P lying 104/60, sitting 81/49, standing 59/38
--- NOTE | 2016-07-19 10:19 | CN ---
PATIENT NAME:YINKA HOLLOWAY MEDICAL RECORD: [id number] : 54 LOCATION:D. D.2138 ADMIT DATE: 07/16/16 ACCOUNT: [id number] CONSULTING PHYSICIAN: ARSENIO BENITEZ MD REFERRING PHYSICIAN: LISA MALONEY MD DATE OF CONSULTATION: 07/16/2016 ADMITTING DIAGNOSES: 1. Recurrent syncope. 2. Coronary artery disease. 3. Previous coronary PTCA stent. 4. Abnormal ECG. 5. Chest pain. HISTORY OF PRESENT ILLNESS: Mrs. Holloway has recently had an admission for pneumonia and not cardiac related, but not having syncope since being home. She has had 5 episodes of syncope. She has had some chest pain. She initially attributed this to the initial syncope with fall; however, the chest pain is persistent. Her EKG is with nonspecific ST-T abnormalities. She does have a history of cardiac stents, not done at our institution, the last being approximately 5 years. PHYSICAL EXAMINATION: GENERAL APPEARANCE: Well-nourished, well-developed, appears stated age. Level of distress, comfortable. PSYCHIATRIC: Mental status, alert, normal affect. Orientation, oriented to time, place and person. EYES: Lids and conjunctiva, noninjected. No discharge, no pallor. ENT: Lips, teeth, gums, normal dentition. Oropharynx, no cyanosis, no pallor. NECK: Carotid arteries, bilateral normal upstroke, no bruits, no thrills. JUGULAR VEINS: No jugular venous pressure or distention. CERVICAL LYMPH NODES: Nontender, nonenlarged. THYROID: Not enlarged. Nontender. No nodules. LUNGS: Respiratory effort, unlabored. CHEST: Normal curvature. No thoracic deformity. No chest wall tenderness. Percussion, resonant. Auscultation, clear. No wheezes, no rales, no rhonchi. CARDIOVASCULAR: Precordial exam, nondisplaced. No heaves or pericardial thrills. Rate and rhythm, regular. Heart sounds, normal S1, normal S2. No S3, no gallop, no rub. Systolic murmur, not heard. Diastolic murmur, not heard. EXTREMITIES: No cyanosis, no edema. Peripheral pulses, full and equal in all extremities, except as noted. No bruits appreciated. ABDOMEN: Soft, nondistended. Normal aorta. No bruit. Nontender. No masses. Liver, nontender, no hepatomegaly. Spleen, nontender, no splenomegaly. MUSCULOSKELETAL: No joint tenderness. No joint swelling. No erythema. NEUROLOGICAL: Normal gait, normal strength, normal tone. SKIN: Warm and dry. REVIEW OF SYSTEMS: The patient reports easy bruising but reports no swollen glands. The patient reports no fever, no night sweats, no significant weight gain, no significant weight loss. No significant exercise tolerance. The patient reports no dry eyes, no irritation, no vision change. Patient reports no difficulty hearing and no ear pain. Patient reports no frequent nose bleeds or nose and sinus problems. Patient reports on arm pain on exertion. No shortness of breath while lying down. No history of heart murmur. Patient reports no cough, no wheezing or coughing up blood. Patient reports no CONSULT REPORT [id number] YINKA HOLLOWAY abdominal pain, no vomiting. Normal appetite. No diarrhea and not vomiting blood. No nausea and no constipation. Patient reports no incontinence. No difficulty urinating. No hematuria. No increased frequency. Patient reports no muscle aches. No weakness, no arthralgias, no back pain. No swelling of the extremities. Patient reports no abnormal mole, no jaundice, no rashes. Reports no loss of consciousness. No weakness and no numbness. No seizures, dizziness, or headaches. The patient reports no depression, no sleep disturbance, feeling safe in a relationship and no alcohol abuse. Patient reports on fatigue. Reports no runny nose or sinus pressure. No itching, no hives, and no frequent sneezing. OVERALL IMPRESSION: Syncope, recurrent with chest pain in a patient with a past history of multivessel coronary artery disease. We will proceed with coronary angiography. Further care depends upon findings of the angiography. TRANSINT:[id number] Voice Confirmation ID: [id number] DOCUMENT ID: [id number] ARSENIO BENITEZ MD at 1019 CC: [id number] DICTATION DATE: 07/16/16 1244 ELECTRIC MOTOR REPAIRING SUPERVISOR: 07/16/16 1825 ADM IN [place] [id number] [place] [address]
--- NOTE | 2016-07-19 10:19 | EC ---
PATIENT:YINKA JACKSON DATE OF SERVICE: 07/16/16 SEX: F MEDICAL RECORD: [id number] DATE OF : 54 LOCATION:D. D.213 AGE OF PATIENT: 66 ADMISSION DATE: 07/16/16 REFERRING PHYSICIAN: INTERPRETING PHYSICIAN: ARSENIO WATSON MD ECHOCARDIOGRAM REPORT ECHO CHARGES 5 ECHO LIMITED CLINICAL DIAGNOSIS: SYNCOPE HX CAD/CABG LIMITED STUDY FOR EF AND CLOTS ECHOCARDIOGRAPHIC MEASUREMENTS (adult normal given) AC root (d.<3.7cm) LV Septum d (<1.2 cm> Valve Excursion LV Septum (systole) Left Atria (s.<4.0cm> LVPW d(<1.2cm) RV (d.<2.3cm) LVPW (sytole) LV diastole(<5.6CM) MV E-F(>70mm/sec) LV systole LVOT Diameter MV exc.(>10mm) Est.ejection fraction (50-75%) Pericardial Effusion N DOPPLER: LVIT A E LA RVSP LVOT AOP1/2T Asc. Ao RVOT RA PA AV Gradient Peak AV Mean AV Area MV Gradient Peak MV Mean MV Area COMMENTS: Eyeglass Lens Grinder: 2 TWAN BOWEN Application Services Manager:1 Dr. Watson TAPE# PACS DATE OF SERVICE: 07/16/2016 Limited Echocardiogram FINDINGS: Left ventricular chamber size is within normal limits. Left ventricular systolic function is normal. Overall ejection fraction estimated at 50%. TRANSINT:[id number] Voice Confirmation ID: [id number] DOCUMENT ID: [id number] ECHOCARDIOGRAM REPORT [id number] YINKA JACKSON ARSENIO WATSON MD at 1019 CC: [id number] DICTATION DATE: 07/17/16 1035 WINDOW SHADE CLOTH SEWER: 07/17/16 1555 ADM IN [place] [address] [place] [address]
--- NOTE | 2016-07-19 14:25 | NUR ---
Nutrition Follow Up: Pt reported that she was very tired. She said that her appetite is okay. Pt is eating 79% meal avg on a diabetic diet. Wt stable. I>O. No BM since admit. Labs reviewed - Glucose elevated. Meds noted including Levemir, Humalog. Rec continue current diet. RD following.
--- NOTE | 2016-07-19 14:52 | NUR ---
Lying awake in bed, no distress, verbalized no complaints.
--- NOTE | 2016-07-19 19:30 | NUR ---
REC'D PATIENT SITTING UP IN BED. NO DISTRESS NOTED. STATED SHE WAS IN PAIN ALL OVER INCLUDING HER CHEST. TOOK HER BP 147/69. ADMINISTERED PAIN MEDS PRESCRIBED. WILL COME BACK TO CHECK ON PAIN LEVEL IN 30 MIN. DENIED FURTHER NEEDS. INSTRUCTED TO CALL IF NEEDED ANYTHING. BED LOW, LOCKED, CALL LIGHT IN REACH, ALARM ON.
--- NOTE | 2016-07-19 21:00 | NUR ---
STATED PAIN LEVEL HAS GONE DOWN. ADMISTERED OTHER MEDS PRESCRIBED. NO DISTRESS NOTED, INTRUCTED TO CALL IF NEEDED ANYTHING. VERBALIZED UNDERSTANDING. BED LOW, LOCKED, CALL LIGHT IN REACH, ALARM ON.
--- NOTE | 2016-07-19 23:09 | NUR ---
PT RESTING QUIETLY WITHOUT C/O OR DISTRESS NOTED. FEW NEEDS VOICED. CALL LIGHT WITHIN REACH. WILL CONT TO MONITOR.
[2016-07-20] VITALS: BP 161/94
--- NOTE | 2016-07-20 00:38 | NUR ---
PATIENT RESTING IN BED. NO DISTRESS NOTED. DENIED PAIN AT THIS TIME. INSTRUCTED TO CALL IF NEEDED ANYTHING. VERBALIZED UNDERSTANDING. BED LOW, LOCKED, CALL LIGHT IN REACH, BOX ALARM ON.
--- NOTE | 2016-07-20 02:25 | NUR ---
PATIENT IS RESTING IN BED. HAD ME TO GET HER SOME ICE IN HER CUP. DENIES ANY FURTHER NEEDS. DENIES PAIN. INTRUCTED TO CALL IF NEEDED ANYTHING. VERBALIZED UNDERSTANDING. BED LOW, LOCKED, CALL LIGHT IN REACH, BOX ALARM ON.
[2016-07-20 04:00] VITALS: BP 157/92
[2016-07-20 04:47] LABS: BASOPHILS 0.4 % (0.0-2.0); EOSINOPHILS 2.3 % (0-7); HEMOGLOBIN 13.1 g/dL (12-16); IMMATURE GRANULOCYTES 0.3 % (0-5); LYMPHOCYTES 22.2 % (15-50); MCH 28.4 pg (26.0-34.0); MCHC 33.6 g/dL (31.0-37.0); MCV 84.4 fL (80.0-100.0); MEAN PLATELET VOLUME 10.5 fL (7.4-10.4); MONOCYTES 12.3 % (2-11); NEUTROPHILS 62.5 % (40-80); PLATELET COUNT 154 10x3/uL (130-400); RBC 4.62 10x6/uL (4.00-5.40); RDW 14.1 % (11.5-14.5); WBC 6.9 10x3/uL (4.8-10.8)
[2016-07-20 05:09] LABS: CALC OSMOLALITY 283 mosm/kg (275-300); CALCIUM 8.1 mg/dL (8.5-10.1); CARBON DIOXIDE 29.2 mmol/L (21.0-32.0); CHLORIDE - SERUM 104 mmol/L (98-107); CREATININE - SERUM 0.7 mg/dL (0.6-1.3); POTASSIUM - SERUM 3.9 mmol/L (3.5-5.1); SODIUM 139 mmol/L (136-145); UREA NITROGEN 16 mg/dL (7-18); eGFR NON AFRICAN AMERICAN 89 mL/min (90-120)
[2016-07-20 05:22] LABS: GLUCOSE 191 mg/dL (74-106)
--- NOTE | 2016-07-20 07:44 | NUR ---
RESTS WITH EYES CLOSED. SCDS ON. CALL LIGHT IN REACH. WILL MONITOR NEEDSD.
[2016-07-20 08:00] VITALS: BP 152/87
--- NOTE | 2016-07-20 08:26 | NUR ---
PT RESTING IN BED WITH EYES OPEN CALL LIGHT IN REACH WILL MONITER
[2016-07-20 12:00] VITALS: BP 116/69
--- NOTE | 2016-07-20 14:42 | NUR ---
PT RESTING IN BED WITH EYES OPEN CALL LIGHT IN REACH NO PROBLEMS WILL MONITER
[2016-07-20] MEDS ORDERED: LOPRESSOR25 MG PO (15:16)
[2016-07-20] MEDS ORDERED: LEVEMIR100 U/M1 SC (15:16)
[2016-07-20 15:59] VITALS: BP 157/81
--- NOTE | 2016-07-20 16:58 | NUR ---
PT DISCHARGED TO HOME VIA WHEELCHAIR PT DISCHARGE SUMMARY AND MEDS REVIEWED WITH PT NO QUESTIONS MEDS CALLED TO [facility]
== END 2016-07-20 16:59 | disposition home or self-care (01) | DRG 312 ==
LOC: D.ER 02:04 → D.M2 02:34
PROVIDERS: Family Medicine; ADMIT Emergency Medicine
DX: I95.1 Orthostatic hypotension (principal); R53.2 Functional quadriplegia; I25.10 Atherosclerotic heart disease of native coronary artery without angina pectoris; R94.31 Abnormal electrocardiogram [ECG] [EKG]; I11.0 Hypertensive heart disease with heart failure; I50.9 Heart failure, unspecified; E11.65 Type 2 diabetes mellitus with hyperglycemia; S02.2XXA Fracture of nasal bones, initial encounter for closed fracture; W19.XXXA Unspecified fall, initial encounter; Z95.5 Presence of coronary angioplasty implant and graft; Z86.73 Personal history of transient ischemic attack (TIA), and cerebral infarction without residual deficits; F17.200 Nicotine dependence, unspecified, uncomplicated

== ENCOUNTER 2016-07-29 11:04 | Outpatient (CLI) | payer MEDICARE ==
[~2016-07-29] VITALS: Ht 172.7 cm; Wt 64.1 kg
--- NOTE | ~2016-07-29 | HEMODYNAMI ---
PATIENT:YINKA JACKSON MEDICAL RECORD: [id number] : 54 LOCATION:[facility] ADMISSION DATE: 07/29/16 Generatedon:07/29/201614:02 Patient name: YINKA JACKSON Patient #: [id number] : 1950 Date of study: 07/29/2016 Page: Of Hemodynamic Procedure Report Patient Data Patient Demographics Procedure consent was obtained First Name: YINKA Gender: Female Last Name: RENETTA : 1950 Middle Initial: A Age: 66 year(s) Patient #: [id number] Race: SSN: [id number] Additional ID: [id number] Contact details Address: [place] [address] State: [place] City: [place] Zip code: [address] Past Medical History Allergies Allergen Reaction Date Comments Reported Other allergy 07/29/2016 sulfa, cipro, keflex Admission Admission Data Admission Date: 07/29/2016 Admission Time: 11:04 Lab Results Lab Result Date: 07/29/2016 Lab Result Time: 0:00 Biochemistry Name Units Result Min Max BUN mg/dl 22 --(----)-* 7 18 Creatinine mg/dl 0.9 --(-*--)-- 0.6 1.3 CBC Name Units Result Min Max Hematocrit % 44.8 --(*---)-- 42 54 Hemoglobin g/dl 15.1 --(-*--)-- 13.5 17.5 Procedure Procedure Types Cath Procedure Diagnostic Procedure LHC LHC w/Coronaries w/Grafts PCI Procedure SVG-BMS/HORACIO Initial Miscellaneous Procedures Moderate Sedation up to 30 minutes Procedure Description Procedure Date Procedure Date: 07/29/2016 Procedure Start Time: 13:36 Procedure End Time: 14:02 Procedure Staff Name Function Gavin Rose MD Performing Physician Glenda Gaspar RT Scrub Nikko Krishnan RN Nurse Robert Arce RT Monitor Procedure Data Cath Procedure Fluoroscopy Diagnostic fluoroscopy Total fluoroscopy Time: 6.7 time: 6.7 min min Diagnostic fluoroscopy Total fluoroscopy dose: 686 dose: 686 mGy mGy Contrast Material Contrast Material Type Amount (ml) Isovue 300 166 Entry Location Entry Primary Successful Side Size Upsize Upsize Entry Closure Succes sful Closure Location (Fr) 1 (Fr) 2 (Fr) Remarks Device Remarks Femoral Right 5 Fr 6 Fr Exoseal artery Short Estimated blood loss: 10 ml Diagnostic catheters Device Type Used For End Catheter Placement Cordis 5Fr JL 4.0 Procedure Catheter (MP) Cordis 5Fr 3DRC Catheter Procedure (MP) Cordis 5Fr Pigtail Procedure Catheter (MP) Procedure Complications No complications Procedure Medications Medication Administration Route Dosage Oxygen NC 2 l/min Heparin Flush Bag added to field 2 bags (1000units/500ml NS) 0.9% NaCl I.V. 100 ml/hr Fentanyl I.V. 50 mcg Versed I.V. 1 mg Fentanyl I.V. 50 mcg Versed I.V. 1 mg Heparin Bolus I.V. 4000 units Integrilin (Bolus I.V. 5.6 ml 2mg/ml) Integrilin (Bolus wasted 4.4 ml 2mg/ml) Plavix P.O. 600 mg Hemodynamics Rest HGB: 15.1 (g/dl) Heart Rate: 79 (bpm) Pressure Samples Time Site Value (mmHg) Purpose Heart Use Rate(bpm) 13:47 LV 144/14,22 Snapshot 88 13:48 AO 148/74(104) Pullback 87 13:48 LV 145/19,18 Pullback 87 Gradients Valve Time Site 1 Site 2 Mean SEP/DFP Peak To Heart Use (mmHg) (sec/min) Peak Rate (mmHg) (bpm) Aortic 13:48 LV AO 0 22 0 87 145/19,18 148/74(104) Calculations Valve P-P Mean Valve Index Valve Source Name Gradient Area Flow (cm2) Aortic 0 0 0 0 Snapshots Pre Cath Intra NCS Post Cath Vital Signs Time Heart Resp SPO2 NIBP (mmHg) Rhythm Pain Sedation Rate (ipm) (%) Status Level (bpm) 13:24:02 80 18 96 160/101(141) NSR 0 (11) 10(A) , No pain 13:28:14 78 17 98 164/104(144) NSR 0 (11) 10(A) , No pain 13:32:26 76 18 99 156/96(134) NSR 0 (11) 10(A) , No pain 13:36:36 76 17 99 140/91(122) NSR 0 (11) 9(A) , No pain 13:40:43 80 18 98 115/83(108) NSR 0 (11) 9(A) , No pain 13:45:32 87 17 98 138/87(125) NSR 0 (11) 9(A) , No pain 13:49:38 88 18 98 149/87(112) NSR 0 (11) 9(A) , No pain 13:53:50 86 18 98 124/81(113) NSR 0 (11) 9(A) , No pain 13:58:43 86 18 98 141/82(105) NSR 0 (11) 9(A) , No pain Medications Time Medication Route Dose Verified Delivered Reason Notes Effectiveness by by 13:27:02 Oxygen NC 2 Nikko Nikko Per physician l/min Eulogio Krishnan RN RN 13:27:18 Heparin Flush added 2 Nikko Nikko used for Bag to bags Eulogio Krishnan RN procedure (1000units/500ml field RN NS) 13:27:27 0.9% NaCl I.V. 100 Nikko Nikko Per physician ml/hr Eulogio Krishnan RN RN 13:33:33 Fentanyl I.V. 50 Nikko Nikko for sedation mcg Eulogio Krishnan RN RN 13:33:39 Versed I.V. 1 mg Nikko Nikko for sedation Eulogio Krishnan RN RN 13:41:22 Fentanyl I.V. 50 Nikko Nikko for sedation mcg Eulogio Krishnan RN RN 13:41:27 Versed I.V. 1 mg Nikko Nikko for sedation Eulogio Krishnan RN RN 13:50:24 Heparin Bolus I.V. 4000 Nikko El for units Eulogio Krishnan RN anticoagulation RN 13:50:42 Integrilin I.V. 5.6 Nikko Nikko for (Bolus 2mg/ml) ml Eulogio Krishnan RN antiplatelet RN therapy 13:50:54 Integrilin wasted 4.4 Nikko El for (Bolus 2mg/ml) ml Eulogio Krishnan RN antiplatelet RN therapy 14:00:30 Plavix P.O. 600 Nikko El for mg Eulogio Krishnan RN antiplatelet RN therapy Procedure Log Time Note 13:02:29 Nikko Krishnan RN sent for patient. Start room use. 13:15:30 Time tracking: Regular hours 13:15:34 Plan of Care:Hemodynamics will remain stable., Cardiac rhythm will remain stable., Comfort level will be maintained., Respiratory function will remain adequate., Patient/ family verbilizes understanding of procedure., Procedure tolerated without complication., Recovers from procedure without complications.. 13:16:25 Procedure type changed to Cath procedure, Diagnostic procedure, LHC, LHC w/Coronaries w/Grafts, PCI procedure, SVG-BMS/HORACIO Initial, Miscellaneous Procedures, Moderate Sedation up to 30 minutes 13:17:25 Patient received from Pre/Post Procedure Room to CCL 2 Alert and oriented. Tansferred to table in Supine position. 13:17:26 Warm blankets applied, and george hugger turned on for patient comfort. 13:17:26 Correct patient and procedure confirmed by team. 13:17:28 Signed procedure consent form obtained from patient. 13:17:29 ECG and BP/O2 sat monitors applied to patient. 13:22:57 Vital chart was started 13:27:02 Oxygen 2 l/min NC was administered by Nikko Krishnan RN; Per physician; 13:27:18 Heparin Flush Bag (1000units/500ml NS) 2 bags added to field was administered by Nikko Krishnan RN; used for procedure; 13:27:27 0.9% NaCl 100 ml/hr I.V. was administered by Nikko Krishnan RN; Per physician; 13:28:52 Baseline sample Acquired. 13:28:59 Rhythm: sinus rhythm 13:29:00 Full Disclosure recording started 13:29:07 H&P Date Dictated: 07/24/2016 Within 30 days and on chart., H&P Addendum completed by physician on day of procedure. (MUST COMPLETE FOR ALL OUTPATIENTS). 13:29:08 Pre-procedure instructions explained to patient. 13:29:08 Pre-op teaching completed and patient verbalized understanding. 13:29:23 Family in waiting room. 13:29:24 Patient NPO since Midnight. 13:29:46 Patient allergic to Other allergysulfa, cipro, keflex 13:29:49 Is the patient allergic to Iodine/contrast media? No. 13:29:50 Is patient on blood thinner?No 13:29:51 Patient diabetic? Yes. 13:29:52 If diabetic: On Metformin? No 13:29:55 Previous problem with sedation/anesthesia? No ? 13:29:56 Snore? No 13:29:57 Sleep apnea? No 13:29:57 Deviated septum? No 13:29:58 Opens mouth fully? Yes 13:29:59 Sticks out tongue? Yes 13:30:49 Airway obstruction? Yes ? 13:30:54 Dentures? Yes in tight 13:31:46 Pre procedure: right dorsailis pedis pulse 1+ Palpable, but thready & weak; easily obliterated 13:31:50 Patient pain scale 0/10 ?. 13:32:11 IV patent on arrival in left forearm with 0.9% NaCl at [facility]. 13:32:48 Lab Result : Creatinine 0.9 mg/dl 13:32:48 Lab Result : BUN 22 mg/dl 13:32:48 Lab Result : Hemoglobin 15.1 g/dl 13:32:48 Lab Result : Hematocrit 44.8 % 13:32:50 Lab results completed and on chart. 13:32:53 Right groin area was prepped with chlora-prep and draped in sterile fashion 13:32:54 Alarms reviewed by R. N. 13:32:54 Sharps counted by scrub and verified by R.N. 13:32:56 Use device set Femoral Dx 13:32:58 Tegaderm 4 x 4 opened to sterile field. 13:32:58 Acist Manifold opened to sterile field. 13:33:00 Acist Hand Control opened to sterile field. 13:33:01 Acist Syringe opened to sterile field. 13:33:01 Bag Decanter opened to sterile field. 13:33:02 Medline Cath Pack opened to sterile field. 13:33:02 Terumo 5Fr [place] Sheath opened to sterile field. 13:33:02 St Saleem 260cm J .035 wire opened to sterile field. 13:33:05 Diagnostic Infinity 5Fr Multipack catheter opened to sterile field. 13:33:12 Physician arrived 13:33:12 --------ALL STOP TIME OUT------ 13:33:13 Final Timeout: patient, procedure, and site verified with staff and physician. All members of the team are in agreement. 13:33:14 Right groin site verified by team. 13:33:16 Physical assessment completed. ASA score P 2 - A patient with mild systemic disease as per Gavin Rose MD. 13:33:18 Sedation plan: IV Moderate Sedation Versed, Fentanyl 13:33:33 Fentanyl 50 mcg I.V. was administered by Nikko Krishnan RN; for sedation; 13:33:39 Versed 1 mg I.V. was administered by Nikko Krishnan RN; for sedation; 13:35:59 Procedure started. 13:36:01 Local anesthetic to right femoral artery with Lidocaine 2% by Gavin Rose MD.INITIAL ACCESS ONLY 13:36:07 A 5 Fr sheath was inserted into the Right Femoral artery 13:36:44 Zero performed for pressure channel P1 13:37:21 Zero performed for pressure channel P1 13:37:33 A Cordis 5Fr JL 4.0 Catheter (MP) was advanced over the wire and used for Procedure. 13:38:13 LCA angiography performed. 13:38:44 Catheter exchanged over wire. 13:38:49 A Cordis 5Fr 3DRC Catheter (MP) was advanced over the wire and used for Procedure. 13:40:25 SVG to RCA angiography performed. 13:41:18 RCA angiography performed. 13:41:22 Fentanyl 50 mcg I.V. was administered by Nikko Krishnan RN; for sedation; 13:41:27 Versed 1 mg I.V. was administered by Nikko Krishnan RN; for sedation; 13:41:29 SVG to Circ angiography performed. 13:45:30 Merit BasixCompak Inflation Kit opened to sterile field. 13:45:30 Terumo 6Fr [place] Sheath opened to sterile field. 13:45:31 Corea [place] 300cm 0.014 guide wire opened to sterile field. 13:46:12 ORO to LAD angiography performed. 13:46:28 A Cordis 5Fr Pigtail Catheter (MP) was advanced over the wire and used for Procedure. 13:47:42 LV gram done using COBOS 13:47:45 Injector settings: Ml/sec: 10, Volume: 20, 13:47:52 EF : 40 % 13:48:14 Catheter removed. 13:48:22 Sheath upsized to a 6 Fr Short. 13:49:08 Medtronic Launcher 6Fr LCB guide catheter opened to sterile field. 13:49:15 6 Fr LCB guide catheter was inserted over the wire 13:49:55 cougar wire advanced. 13:50:24 Heparin Bolus 4000 units I.V. was administered by Nikko Krishnan RN; for anticoagulation; 13:50:42 Integrilin (Bolus 2mg/ml) 5.6 ml I.V. was administered by Nikko Krishnan RN; for antiplatelet therapy; 13:50:54 Integrilin (Bolus 2mg/ml) 4.4 ml wasted was administered by Nikko Krishnan RN; for antiplatelet therapy; 13:51:52 Wire advanced across lesion. 13:54:48 Inflation Number: 1 A Medtronic Integrity 4.0 X 12 stent was prepped and advanced across the Aorta Left -> Mid CX. The stent was deployed at 14 ELLA for 0:27 (min:sec). 13:55:21 Stent catheter was removed intact over wire. 13:55:21 Wire removed. 13:55:22 Guide catheter removed. 13:55:38 Cordis 6Fr Exoseal opened to sterile field. 13:55:48 Sheath removed intact; hemostasis achieved with Exoseal to the Right Femoral artery. 13:55:50 Procedure ended.(Physican Out) 13:59:50 Fluoroscopy time 06.70 minutes. 13:59:54 Fluoroscopy dose: 686 mGy 13:59:54 Flurop Dose total: 686 14:00:01 Contrast amount:Isovue 300 166ml. 14:00:03 Sharps counted by scrub and verified by R.N. 14:00:06 Insertion/operative site no bleeding no hematoma. 14:00:06 Insertion/operative site no bleeding no hematoma. 14:00:09 Post-op/insertion site Right Femoral artery dressed using a 4 x 4 and Tegaderm. 14:00:29 Post right femoral artery:stable, soft, clean and dry 14:00:30 Plavix 600 mg P.O. was administered by Nikko Krishnan RN; for antiplatelet therapy; 14:00:35 Post Procedure Pulses reassessed and unchanged 14:00:38 Post-procedure physical assessment completed. ASA score P 2 - A patient with mild systemic disease as per Gavin Rose MD. 14:00:41 Post procedure rhythm: unchanged. 14:00:45 Estimated blood loss: 10 ml 14:00:46 Post procedure instruction explained to patient.Patient verbalizes understanding. 14:00:46 Patient needs reinforcement of post procedure teaching. 14:01:53 Procedure and supply charges have been captured, reviewed, submitted and are correct. 14:01:56 Procedure Complication : No complications 14:01:58 Vital chart was stopped 14:02:00 See physician's report for complete and final results. 14:02:01 Report given to Pre/Post Procedure Room. 14:02:03 Patient transfered to Pre/Post Procedure Room with Stretcher. 14:02:05 Procedure ended. 14:02:05 Full Disclosure recording stopped 14:02:30 End room use (Document Last) Intervention Summary Intervention Notes Time ActionType Lesion and Equipment Action# Pressure Duration Attributes Used 13:54:48 Place stent Aorta Left Medtronic 1 14 00:27 -> Mid CX Integrity 4.0 X 12 stent Device Usage Item Name Manufacture Quantity Catalog Hospital Part Current Minimal Lot# / Number Charge Number Stock Stock Serial# Code Tegade 4 3M 1 1626W 532682 873925 734444 5 x 4 Acist Acist 1 33900 295209 756972 656975 5 Manifold Medical Systems Inc Acist Hand Acist 1 42860 561183 910702 311753 5 Control Medical Systems Inc Acist Acist 1 61253 107929 235142 719735 20 Syringe Medical Systems Inc Bag Microtek 1 2002S 669256 11334 682381 5 Pumant Inc. Medline Cardinal 1 [id number] 594848 65876 007437 5 Cath Pack Health Terumo 5Fr Terumo 1 [id number] 263924 707521 837963 [address] [place] [address] St Saleem 1 262727 689242 578575 491779 30 260cm J .035 wire Diagnostic Cardinal 1 [id number] 255891 60403 868510 30 Infinity Health 5Fr Multipack catheter Cordis 5Fr Cardinal 1 [id number] 5 JL 4.0 Health Catheter (MP) Cordis 5Fr Cardinal 1 103962 5 3D Health Catheter (MP) Merit Merit 1 [id number] 550279 958908 131707 15 BasOmniEarth Medical Inflation Kit Terumo 6Fr Terumo 1 TDT515 450775 869845 353059 40 [place] Sheath Corea Corea 1 [id number] 229889 948668 547749 1 [place] Vascular 300cm 0.014 guide wire Cordis 5Fr Cardinal 1 302414 5 Pigtail Health Catheter (MP) Medtronic Medtronic 1 [id number] 134447 58871 756002 1 Launcher 6Fr LCB guide catheter Medtronic Medtronic 1 [id number] 777040 048858 696614 8 [id number] Integrity 4.0 X 12 stent Cordis 6Fr Cardinal 1 [id number] 241520 218058 920342 10 Sapiens Signature Audit [place] Stage Time Signature Unsigned Intra-Procedure 07/29/2016 Robert Arce 2:02:50 PM RT(R) Signatures Monitor : Robert Arce RT Signature : Date : Time : [address] [address]
[~2016-07-29 11:04] MED LIST changes: +LOPRESSOR25 MG PO
[2016-07-29] MEDS ORDERED: MIDODRINE HCL5 MG PO (11:44)
[2016-07-29 11:50] VITALS: BP 151/101; Ht 172.7 cm; Wt 64.1 kg
[2016-07-29 12:01] LABS: BASOPHILS 0.8 % (0-2); EOSINOPHILS 2.9 % (0-7); HEMATOCRIT 44.8 % (36.0-48.0); HEMOGLOBIN 15.1 g/dL (12-16); LYMPHOCYTES 28.9 % (15-50); MCHC 33.7 g/dL (31.0-37.0); MEAN PLATELET VOLUME 10.6 fL (7.4-10.4); MONOCYTES 16.1 % (2-11); NEUTROPHILS 50.3 % (40-80); PLATELET COUNT 146 10x3/uL (130-400); RBC 5.21 10x6/uL (4.00-5.40); RDW 14.3 % (11.5-14.5); WBC 4.8 10x3/uL (4.8-10.8)
[2016-07-29 12:14] LABS: ANION GAP 9.3 mmol/L (8-16); CARBON DIOXIDE 32.8 mmol/L (21.0-32.0); CREATININE - SERUM 0.9 mg/dL (0.6-1.3); POTASSIUM - SERUM 4.1 mmol/L (3.5-5.1)
[2016-07-29] MEDS ORDERED: PLAVIX75 MG PO (14:26)
--- NOTE | 2016-07-29 14:30 | NUR ---
RESTING IN BED WITH EYES CLOSED. 2L NC, NO RESP DISTRESS NOTED. VSS. NO C/O CHEST PAIN OR NAUSEA. RIGHT GROIN EXOSEAL CDI, NO BLEEDING OR HEMATOMA NOTED. INSTRUCTED PT TO KEEP HEAD FLAT ON PILLOW AND RIGHT LEG STRAIGHT.
--- NOTE | 2016-07-29 15:00 | NUR ---
RESTING QUIETLY. 2L NC, NO RESP DISTRESS NOTED. VSS. NO C/O CHEST PAIN OR NAUSEA. RIGHT GROIN EXOSEAL CDI, NO BLEEDING OR HEMATOMA NOTED. WILL CONTINUE TO MONITOR.
--- NOTE | 2016-07-29 15:15 | NUR ---
HEAD FLAT ON PILLOW. 2L NC, NO RESP DISTRESS. VSS. RIGHT GROIN EXOSEAL CDI, NO BLEEDING OR HEMATOMA NOTED. CALL LIGHT WITHIN REACH.
--- NOTE | 2016-07-29 15:45 | NUR ---
IN BED WITH EYES CLOSED. NO C/O AT THIS TIME. VSS. RIGHT GROIN EXOSEAL CDI, NO BLEEDING OR HEMATOMA NOTED.
--- NOTE | 2016-07-29 16:45 | NUR ---
IN BED WITH EYES CLOSED. VSS. 2L NC, NO RESP DISTRESS. NO C/O CHEST PAIN OR NAUSEA. RIGHT GROIN EXOSEAL CDI, NO BLEEDING OR HEMATOMA NOTED. CALL LIGHT WITHIN REACH.
--- NOTE | 2016-07-29 17:45 | NUR ---
HOB ELEVATED 30 DEGREES. NO BLEEDING NOTED TO RIGHT GROIN.
--- NOTE | 2016-07-29 18:00 | NUR ---
LEFT FA PIV D/C'D WITH CATHETER INTACT, BAND AID TO SITE. UP TO BEDSIDE TO GET DRESSED.
--- NOTE | 2016-07-29 18:10 | NUR ---
UP TO RESTROOM TO VOID.
--- NOTE | 2016-07-29 18:20 | NUR ---
DISCHARGE INSTRUCTIONS GIVEN, VERBALIZED UNDERSTANDING. TAKEN OUT VIA WHEELCHAIR BY [facility] MED[employer] SPECIALIST. LEFT FACILITY WITH FAMILY MEMBER AND ALL PERSONAL BELONGINGS.
--- NOTE | 2016-07-31 08:44 | OP ---
PATIENT NAME: YINKA JACKSON MEDICAL RECORD: [id number] :54 LOCATION:D.CAT ADMISSION DATE: SURGEON: CLEO PURI MD DATE OF OPERATION: 07/29/2016 PROCEDURES: Left heart catheterization, selective coronary angiography, right femoral artery approach. CATHETERS: A 5-[place] sheath, 5/4 left and right Brody, 5/4 pig. The procedure was well tolerated. The patient returned to the cuellar, sheath removed. ExoSeal device was placed. FINDINGS: Left ventriculography in the 30-degree COBOS view shows global hypokinesis, reduced EF at 35%-40%. CORONARY ANATOMY: LEFT MAIN: Left main is free of disease. LAD: The LAD fills for a short period of time and then is totally occluded. CIRCUMFLEX: Circumflex ____ vessel off the right coronary cusp. Previously placed stent is widely patent. RIGHT CORONARY ARTERY: The PL branch fills well distally, the PD branch is grafted. Saphenous vein graft to the right coronary/PDA is widely patent throughout its course without evidence of post-anastomotic stenosis. Saphenous vein graft to diagonal has an 80% stenosis in the proximal portion of the bypass graft. ORO to LAD is widedly patent. PLAN: Intervention to the saphenous graft to the diagonal. PROCEDURE: 5-Pu[place]ican sheath exchanged for 6-[place] sheath. Right coronary guided provided guide catheter support, followed by ____ [place] XT wire placed across the tightly occluded lesion. Primary stenting was performed using a 4.0 x 12 mm Integrity nondrug-eluting stent inflated up to 14 atmospheres. Final angiography shows excellent resolution of 80% stenosis, no significant residual. JUNE flow was 3 throughout the procedure. Integrilin was used during the case. Plavix was loaded in the lab. TRANSINT:[id number] Voice Confirmation ID: [id number] DOCUMENT ID: [id number] CLEO PURI MD at 0844 CC: [id number] DICTATION DATE: 07/29/16 1407 SPORTS MARKETER: 07/29/16 2152 DEP CLI 07/29/16 [place] [address]
== END 2016-07-29 18:20 | disposition home or self-care (01) ==
LOC: D.CATH 11:04
PROVIDERS: Internal Medicine Interventional Cardiology
DX: I25.119 Atherosclerotic heart disease of native coronary artery with unspecified angina pectoris (principal); I25.719 Atherosclerosis of autologous vein coronary artery bypass graft(s) with unspecified angina pectoris; Z95.5 Presence of coronary angioplasty implant and graft

== ENCOUNTER → 2016-10-07 14:03 | Outpatient (CLI) | payer MEDICARE ==
[2016-07-29 11:50] VITALS: BMI 21.4
[~2016-10-07 14:03] MED LIST changes: +MIDODRINE HCL5 MG PO
== END | disposition home or self-care (01) ==
LOC: D.CT 09-30 14:00
DX: R31.9 Hematuria, unspecified (principal); R10.9 Unspecified abdominal pain

== ENCOUNTER 2016-10-11 04:15 | Inpatient (IN) | payer MEDICARE ==
[~2016-10-11] VITALS: Ht 172.7 cm; Wt 53.2 kg
[2016-10-11 04:53] LABS: BASOPHILS 0.4 % (0-2); EOSINOPHILS 1.3 % (0-7); HEMOGLOBIN 14.4 g/dL (12-16); IMMATURE GRANULOCYTES 0.6 % (0-5); LYMPHOCYTES 26.8 % (15-50); MCH 29.6 pg (26.0-34.0); MCHC 34.3 g/dL (31.0-37.0); MCV 86.4 fL (80.0-100.0); MEAN PLATELET VOLUME 10.5 fL (7.4-10.4); MONOCYTES 11.5 % (2-11); NEUTROPHILS 59.4 % (40-80); RBC 4.86 10x6/uL (4.00-5.40); RDW 13.2 % (11.5-14.5); WBC 6.7 10x3/uL (4.8-10.8)
[2016-10-11 04:54] LABS: PLATELET COUNT 202 10x3/uL (130-400)
[2016-10-11 05:07] LABS: ALBUMIN 2.7 g/dL (3.4-5.0); ALKALINE PHOSPHATASE 114 U/L (46-116); ALT (SGPT) 38 U/L (10-68); BILIRUBIN - TOTAL 0.27 mg/dL (0.2-1.3); CALC OSMOLALITY 295 mosm/kg (275-300); CALCIUM 9.2 mg/dL (8.5-10.1); CARBON DIOXIDE 30.7 mmol/L (21.0-32.0); CHLORIDE - SERUM 105 mmol/L (98-107); CREATININE - SERUM 0.8 mg/dL (0.6-1.3); GLUCOSE 294 mg/dL (74-106); POTASSIUM - SERUM 3.4 mmol/L (3.5-5.1); PROTEIN - SERUM 6.7 g/dL (6.4-8.2); SODIUM 142 mmol/L (136-145); UREA NITROGEN 17 mg/dL (7-18); eGFR NON AFRICAN AMERICAN 76 mL/min (90-120)
[2016-10-11 05:11] LABS: CREATINE KINASE 26 UL (21-215); PRO BNP 1425 pg/mL (0-125)
[2016-10-11 05:12] LABS: TROPONIN-I 0.017 ng/mL (0.000-0.060)
[2016-10-11 05:25] LABS: APPEARANCE CLEAR (CLEAR); BILIRUBIN NEGATIVE (NEGATIVE); COLOR YELLOW (YELLOW); GLUCOSE 500 mg/dL (NEGATIVE); KETONE NEGATIVE (NEGATIVE); LEUKOCYTE ESTERASE NEGATIVE (NEGATIVE); NITRITE NEGATIVE (NEGATIVE); PROTEIN NEGATIVE (NEGATIVE); UROBILINOGEN NORMAL (NORMAL)
[2016-10-11 08:44] VITALS: BP 148/83
[2016-10-11 12:40] VITALS: BP 149/82
[2016-10-11 15:36] VITALS: BP 153/77
[2016-10-11 19:00] VITALS: BP 147/80
[2016-10-11 19:22] VITALS: Ht 172.7 cm; Wt 53.2 kg
[2016-10-12 00:14] VITALS: BP 125/60
[2016-10-12 04:00] VITALS: BP 168/94
[2016-10-12 06:11] LABS: BASOPHILS 0.1 % (0-2); EOSINOPHILS 0 % (0-7); HEMATOCRIT 43.9 % (36.0-48.0); IMMATURE GRANULOCYTES 0.5 % (0-5); LYMPHOCYTES 4.6 % (15-50); MCH 29.2 pg (26.0-34.0); MCHC 34.2 g/dL (31.0-37.0); MCV 85.6 fL (80.0-100.0); MEAN PLATELET VOLUME 10.5 fL (7.4-10.4); MONOCYTES 2.7 % (2-11); NEUTROPHILS 92.1 % (40-80); PLATELET COUNT 200 10x3/uL (130-400); RBC 5.13 10x6/uL (4.00-5.40); RDW 13.1 % (11.5-14.5)
[2016-10-12 06:17] LABS: WBC 10.6 10x3/uL (4.8-10.8)
[2016-10-12 06:42] LABS: BILIRUBIN - TOTAL 0.4 mg/dL (0.2-1.3); CALCIUM 9.3 mg/dL (8.5-10.1); PHOSPHOROUS 3.9 mg/dL (2.5-4.9); PROTEIN - SERUM 7.3 g/dL (6.4-8.2)
[2016-10-12 06:43] LABS: CREATININE - SERUM 1.1 mg/dL (0.6-1.3)
[2016-10-12 08:18] VITALS: BP 164/87
[2016-10-12 12:24] VITALS: BP 125/98
[2016-10-12] MEDS ORDERED: DICLOFENAC SODI50 MG PO (18:39)
[2016-10-12] MEDS ORDERED: LASIX20 MG PO (18:40)
[2016-10-12] MEDS ORDERED: IPRAT-ALBUT 0.5-3 ML UPD (18:41)
[2016-10-12] MEDS ORDERED: HUMALOG 30100 UNITS/ SC (18:41)
[2016-10-12] MEDS ORDERED: LEVEMIR100 U/M1 SC (18:42)
[2016-10-12] MEDS ORDERED: PREDNISOLONE 110 ML EACH EYE (18:46)
[2016-10-12 20:00] VITALS: BP 139/70
[2016-10-12 23:37] VITALS: BP 161/82
[2016-10-13 03:54] VITALS: BP 145/83
[2016-10-13 06:47] LABS: BASOPHILS 0.3 % (0-2); EOSINOPHILS 0.1 % (0-7); HEMATOCRIT 42.3 % (36.0-48.0); HEMOGLOBIN 14.4 g/dL (12-16); IMMATURE GRANULOCYTES 0.6 % (0-5); LYMPHOCYTES 5.9 % (15-50); MCH 29.4 pg (26.0-34.0); MCV 86.3 fL (80.0-100.0); MEAN PLATELET VOLUME 11.1 fL (7.4-10.4); MONOCYTES 6.3 % (2-11); NEUTROPHILS 86.8 % (40-80); PLATELET COUNT 199 10x3/uL (130-400); RDW 13.3 % (11.5-14.5); WBC 11.7 10x3/uL (4.8-10.8)
[2016-10-13 07:17] LABS: ALBUMIN 2.9 g/dL (3.4-5.0); ANION GAP 14.6 mmol/L (8-16); BILIRUBIN - TOTAL 0.47 mg/dL (0.2-1.3); CALCIUM 9.1 mg/dL (8.5-10.1); CARBON DIOXIDE 28.5 mmol/L (21.0-32.0); CREATININE - SERUM 1.1 mg/dL (0.6-1.3); POTASSIUM - SERUM 4.1 mmol/L (3.5-5.1); PROTEIN - SERUM 6.9 g/dL (6.4-8.2)
[2016-10-13 08:59] VITALS: BP 154/84
[2016-10-13 13:24] VITALS: BP 163/86
[2016-10-13 15:34] VITALS: BP 137/79
[2016-10-13 20:00] VITALS: BP 154/86
[2016-10-14] VITALS: BP 145/82
[2016-10-14 04:00] VITALS: BP 152/77
[2016-10-14 05:01] LABS: BASOPHILS 0.1 % (0-2); EOSINOPHILS 0.6 % (0-7); HEMATOCRIT 40.5 % (36.0-48.0); HEMOGLOBIN 13.6 g/dL (12-16); IMMATURE GRANULOCYTES 0.3 % (0-5); LYMPHOCYTES 12.3 % (15-50); MCHC 33.6 g/dL (31.0-37.0); MCV 86.4 fL (80.0-100.0); MEAN PLATELET VOLUME 9.9 fL (7.4-10.4); MONOCYTES 11.9 % (2-11); NEUTROPHILS 74.8 % (40-80); PLATELET COUNT 176 10x3/uL (130-400); RBC 4.69 10x6/uL (4.00-5.40); RDW 13.4 % (11.5-14.5); WBC 10.7 10x3/uL (4.8-10.8)
[2016-10-14 05:17] LABS: ALBUMIN 2.6 g/dL (3.4-5.0); BILIRUBIN - TOTAL 0.4 mg/dL (0.2-1.3); CALCIUM 8.7 mg/dL (8.5-10.1); CARBON DIOXIDE 33.2 mmol/L (21.0-32.0); PROTEIN - SERUM 6.2 g/dL (6.4-8.2)
[2016-10-14 05:21] LABS: ANION GAP 9.2 mmol/L (8-16); POTASSIUM - SERUM 3.4 mmol/L (3.5-5.1)
[2016-10-14 07:45] VITALS: BP 133/78
[2016-10-14 11:38] VITALS: BP 137/82
[2016-10-14] MEDS ORDERED: PULMICORT0.5 MG/21 UPD (12:17)
[2016-10-14] MEDS ORDERED: SINGULAIR10 MG PO (12:17)
[2016-10-14] MEDS ORDERED: BENZONATATE200 MG PO (12:17)
[2016-10-14] MEDS ORDERED: MUCINEX DM ER1 EAC1 PO (12:17)
[2016-10-14] MEDS ORDERED: FLORAJEN3 CAPS460 MG PO (12:18)
[2016-10-14] MEDS ORDERED: VIBRAMYCIN 100100 MG PO (12:21)
[2016-10-14] MEDS ORDERED: AMOXICILLIN500 M1 PO (12:24)
[2016-10-14] MEDS ORDERED: PREDNISONE20 MG PO (12:27)
[2016-10-14 15:46] VITALS: BP 159/89
== END 2016-10-14 17:23 | disposition home health service (06) | DRG 190 ==
LOC: D.ER 04:15 → D.MS 06:06
PROVIDERS: Emergency Medicine; ADMIT Emergency Medicine
DX: J44.0 Chronic obstructive pulmonary disease with (acute) lower respiratory infection (principal); J18.1 Lobar pneumonia, unspecified organism; R53.2 Functional quadriplegia; J98.11 Atelectasis; I50.22 Chronic systolic (congestive) heart failure; E78.00 Pure hypercholesterolemia, unspecified; Z79.4 Long term (current) use of insulin; E87.6 Hypokalemia; I25.2 Old myocardial infarction; R53.1 Weakness; J44.1 Chronic obstructive pulmonary disease with (acute) exacerbation; E11.65 Type 2 diabetes mellitus with hyperglycemia; F41.8 Other specified anxiety disorders; I11.0 Hypertensive heart disease with heart failure; I25.10 Atherosclerotic heart disease of native coronary artery without angina pectoris; Z95.1 Presence of aortocoronary bypass graft; Z86.73 Personal history of transient ischemic attack (TIA), and cerebral infarction without residual deficits

== ENCOUNTER 2016-12-26 16:27 | Inpatient (IN) | payer MEDICARE ==
[~2016-12-26] VITALS: Ht 172.7 cm; Wt 64.1 kg
[~2016-12-26 16:27] MED LIST changes: +AMOXICILLIN500 M1 PO; +DICLOFENAC SODI50 MG PO; +LASIX20 MG PO; +MUCINEX DM ER1 EAC1 PO; +PREDNISOLONE 110 ML EACH EYE; +PREDNISONE20 MG PO; +PULMICORT0.5 MG/21 UPD; +SINGULAIR10 MG PO
[2016-12-26 19:11] LABS: BASOPHILS 0.1 % (0-2); EOSINOPHILS 0.7 % (0-7); HEMATOCRIT 40.4 % (36.0-48.0); HEMOGLOBIN 13.3 g/dL (12-16); IMMATURE GRANULOCYTES 0.9 % (0-5); MCH 27.5 pg (26.0-34.0); MCHC 32.9 g/dL (31.0-37.0); MCV 83.6 fL (80.0-100.0); MEAN PLATELET VOLUME 11.6 fL (7.4-10.4); MONOCYTES 7.9 % (2-11); NEUTROPHILS 82.4 % (40-80); RBC 4.83 10x6/uL (4.00-5.40); WBC 11.9 10x3/uL (4.8-10.8)
[2016-12-26 19:12] LABS: PLATELET COUNT 224 10x3/uL (130-400)
--- NOTE | 2016-12-26 19:15 | NUR ---
PM ROUNDS MADE, INFORMED PT THAT I WILL BE BACK SHORTLY TO DO ASSESSMENT AND HISTORY, PT VERBALIZES UNDERSTANDING, DENIES NEEDS AT THIS TIME, DINNER TRAY REMOVED
[2016-12-26 19:24] LABS: ALBUMIN 2.3 g/dL (3.4-5.0); ANION GAP 9.3 mmol/L (8-16); BILIRUBIN - TOTAL 0.5 mg/dL (0.2-1.3); CARBON DIOXIDE 34.4 mmol/L (21.0-32.0); CREATININE - SERUM 0.9 mg/dL (0.6-1.3); POTASSIUM - SERUM 3.7 mmol/L (3.5-5.1); PROTEIN - SERUM 7.3 g/dL (6.4-8.2)
--- NOTE | 2016-12-26 19:34 | NUR ---
LAB CALLS WITH CRITICAL GLUCOSE 439
--- NOTE | 2016-12-26 19:37 | NUR ---
CORNELIA PIERRE NP PAGED
--- NOTE | 2016-12-26 19:58 | NUR ---
CORNELIA PIERRE NP CALLS UNIT, REPORT OF CRITICAL GLUCOSE 439, CORNELIA PIERRE NP STATES "WHAT ORDERS DOES SHE HAVE?", INFORMED HER THAT PT WAS PLACED ON ACHS SCHEDULE, REGULAR INSULIN, AND INTERMEDIATE RESISTANCE SCALE, CORNELIA PIERRE NP STATES "JUST FOLLOW THOSE ORDERS THEN"
--- NOTE | 2016-12-26 20:02 | NUR ---
THIS RN AND FÁTIMA MARTINO RN VERIFIED INSULIN, ADM 20 UNITS SUBQ PER MD ORDES, SEE EMAR
--- NOTE | 2016-12-26 20:05 | NUR ---
ADMITTING HISTORY AND ASSESSMENT STARTED
[2016-12-26 20:11] VITALS: BP 121/76; BMI 19.9
--- NOTE | 2016-12-26 20:30 | NUR ---
FÁTIMA MARTINO RN STARTED IV IN LEFT ARM, FIRST ATTEMPT, FLUSHED WITH 10 MLS OF NS TO SALINE LOCK IV
--- NOTE | 2016-12-26 20:40 | NUR ---
ADMITTING HISTORY AND ASSESSMENT COMPELTED, ADM 2100 MEDS PER MD ORDERS, SEE EMAR, SNACK PROVIDED
--- NOTE | 2016-12-26 20:48 | NUR ---
PT STATES "MY LEGS ARE STARTING TO CRAMP", REQUESTED PAIN MED, ADM NORCO PO PER MD ORDERS, MED REC STARTED
--- NOTE | 2016-12-26 21:02 | NUR ---
FINISHED HOME MED LIST FROM [facility]CTORS OFFICE, BED ALARM PLACED ON AND WORKING PROPERLY, PT INST ON FALL RISKS, VERBALIZES UNDERSTANDING, DENIES NEEDS AT THIS TIME
--- NOTE | 2016-12-26 22:10 | NUR ---
PT RECYCLING SPECIALIST LIGHT, PT INCONTINENT, PT CLEANED UP WITH WET WARM WASH CLOTHS, PT THEN STATES "UH OH, I'M SORRY, I FEEL LIKE I STILL NEED TO PEE", PT TO BEDSIDE COMMODE, VOIDED 300 MLS OF CLOUDY ODOROUS URINE", BRIEFS APPLIED, PINK PAD AND BLUE CHUX REPLACED, PT BACK TO BED, DENIES FURTHER NEEDS, BED IN LOW POSITION, SIDE RAILS X 2, CALL LIGHT IN REACH, BOX ALARM REATTACHED AND WORKING PROPERLY
--- NOTE | 2016-12-26 22:10 | NUR ---
LATE ENTRY: MEPILEX DRESSING PLACED TO PRESSURE ULCER ON BUTTOCK
[2016-12-26] MEDS ORDERED: METOPROLOL TART50 MG PO (22:25)
[2016-12-26] MEDS ORDERED: NYSTATIN15 GM TOPICAL (22:28)
[2016-12-26] MEDS ORDERED: NYSTATIN1 PWD TOPICAL (22:31)
--- NOTE | 2016-12-26 22:32 | NUR ---
PT ELA TEACHER LIGHT, PT REQUESTED AND SERVED CUP OF ICE, DENIES FURTHER NEEDS
[2016-12-26] MEDS ORDERED: PROAIR HFA8.5 GM INH (22:34)
[2016-12-26] MEDS ORDERED: MUCINEX DM ER1 EAC1 PO (22:38)
--- NOTE | 2016-12-27 00:33 | NUR ---
PT RESTING WITH EYES CLOSED, RESP QUIET, NO DISTRESS NOTED, LEFT UNDISTURBED AT THIS TIME
--- NOTE | 2016-12-27 02:28 | NUR ---
PT RESTING WITH EYES CLOSED, RESP QUIET, NO DISTRESS NOTED, LEFT UNDISTURBED AT THIS TIME
[2016-12-27 04:34] VITALS: BP 122/68
--- NOTE | 2016-12-27 04:34 | NUR ---
LATE ENTRY: VS OBTAINED
--- NOTE | 2016-12-27 04:34 | NUR ---
PT REGRINDER OPERATOR LIGHT, PT UP TO BEDSIDE COMMODE, PT IS INCONTINENT AT TIMES, PT VOIDED APPROX 300 MLS OF BLOOD TINGED URINE, ALIVIA CARE WITH WIPES, BRIEFS CHANGED, PT BACK TO BED, C/O BILATERAL LEG PAIN, ADM NORCO PO PER MD ORDERS, SEE EMAR, PT DENIES FURTHER NEEDS, BED IN LOW POSITION, SIDE RAILS X 2, CALL LIGHT IN REACH, BOX ALARM ATTACHED AND WORKING PROPERLY
--- NOTE | 2016-12-27 07:10 | NUR ---
SHIFT REPORT TO JANINE MCCANN RN
[2016-12-27 07:20] VITALS: BP 110/62
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
--- NOTE | 2016-12-27 08:00 | NUR ---
ASSISTED PT WITH HER BREAKFAST. SHE STATES THAT SHE IS HUNGRY. SHE ASKED FOR MORE EGGS. I ORDERED THEM FOR HER. PT SAT UP TO EAT. TOLERATED WELL
--- NOTE | 2016-12-27 09:30 | NUR ---
PT GIVEN AM MEDS AND PT WANTED TO LIE BACK DOWN. ASSISTED HER TO LIE BACK DOWN. BED ALARM RE ATTACHED. BED IS LOW, SIDE RAILS UP X 2
--- NOTE | 2016-12-27 10:02 | NUR ---
CALLED CONSULT TO DR ATKINSON. HE ORDERED A CT OF ABD/PEL WITH AND WITHOUT CONTRAST. ORDERED.
[2016-12-27 10:16] VITALS: Ht 172.7 cm; Wt 64.1 kg
--- NOTE | 2016-12-27 10:17 | NUR ---
DR ANDRADE OFFICE CALLED AND THEY CANCELLED CANCELED CT, HIS OFFICE STATES THT ONE HAS ALREAD DEBBIE ONE DONE. CANCELLED/
--- NOTE | 2016-12-27 10:20 | NUR ---
PT IS SLEEPING. BED IS LOW, SIDE RAILS UP X2 AN BED ALARM IS ON.
--- NOTE | 2016-12-27 10:23 | NUR ---
PT IS SLEEPING. BED IS LOW. SIDE RAILS UP X 2. BED ALARM IS ON
[2016-12-27 11:14] LABS: BASOPHILS 0.2 % (0-2); EOSINOPHILS 1.1 % (0-7); HEMATOCRIT 36.1 % (36.0-48.0); HEMOGLOBIN 11.7 g/dL (12-16); IMMATURE GRANULOCYTES 0.7 % (0-5); LYMPHOCYTES 7.9 % (15-50); MCH 27.3 pg (26.0-34.0); MCHC 32.4 g/dL (31.0-37.0); MCV 84.1 fL (80.0-100.0); MEAN PLATELET VOLUME 10.5 fL (7.4-10.4); MONOCYTES 8.7 % (2-11); NEUTROPHILS 81.4 % (40-80); PLATELET COUNT 183 10x3/uL (130-400); RBC 4.29 10x6/uL (4.00-5.40); RDW 14.2 % (11.5-14.5)
[2016-12-27 11:20] LABS: ALBUMIN 1.8 g/dL (3.4-5.0); ANION GAP 6.2 mmol/L (8-16); BILIRUBIN - TOTAL 0.31 mg/dL (0.2-1.3); CALCIUM 8.7 mg/dL (8.5-10.1); CARBON DIOXIDE 36.5 mmol/L (21.0-32.0); CREATININE - SERUM 0.9 mg/dL (0.6-1.3); POTASSIUM - SERUM 3.7 mmol/L (3.5-5.1)
[2016-12-27 12:32] LABS: HEMOGLOBIN A1C 10.9 % (4.8-6.0)
[2016-12-27 13:34] LABS: ERYTHROCYTE SEDIMENTATION RATE 48 mm/hr (0-30)
--- NOTE | 2016-12-27 14:18 | NUR ---
in and out cath. 375ml drained from bladder. reddish orange in color and cloudy. animal technician as per p/p. pt talkative throught. states she is concerned about her bowels not working constipated). pt states no bm x one month. properly and urinary urgency.
--- NOTE | 2016-12-27 14:24 | NUR ---
above cath urine spec sent for culture.
--- NOTE | 2016-12-27 15:05 | NUR ---
REPORT GIVEN TO NURSE OF MED 2. PT IS BEIING TRAQSFERRED UP STAIRS.
--- NOTE | 2016-12-27 15:09 | NUR ---
DR GRIFFITHS HERE TO CONSULT ON PT. NEW ORDERS NOTED.
--- NOTE | 2016-12-27 15:30 | NUR ---
PT TO FLOOR FROM [facility]. NURSE REPORT RECEIVED FROM JANINE. VIBHA LINDA BROUGHT PT TO FLOOR, THERE IS A YOUNG BOY WITH PT.. VIBHA SAID THAT THE MOTHER OF THIS CHILD WENT TO SMOKE AND SAID SHE WOULD BE BACK. PT SITTING UP IN BED WITH BOY IN BED WITH HER WATCHING TV, DENIES NEDS WILL CONT TO MONITOR
--- NOTE | 2016-12-27 15:44 | NUR ---
WHEN RECEIVING NURSE REPORT FROM JANINE IN [facility], STATED SHE GAVE PT INSULIN AND OTHER MEDICATIONS. THEY WERE OVERDUE ON EMAR. MARKED THEM OFF WITH EXPLAINATION..
--- NOTE | 2016-12-27 17:59 | NUR ---
PT LAYING TO LEFT SIDE SLEEPING NO S/S DISTRESS NOTED RR EVEN AND UNLABORED WILL CONT TO MONITOR
--- NOTE | 2016-12-27 19:15 | NUR ---
RECEIVED REPORT,PT, COMPLAINED OF #7 PAIN TO BACK AND LEGS, GAVE NORCO-10 ORDER, BED IS LOW, SRX2, CALL LIGHT IN REACH, WILL CONTINUE PLAN OF CARE
[2016-12-27 20:00] VITALS: BP 123/67
--- NOTE | 2016-12-27 21:10 | NUR ---
[id number] OF HUMALOG GIVEN, REPLACED MEPLILEX TO BOTTOM
[2016-12-28] VITALS: BP 147/77
--- NOTE | 2016-12-28 02:08 | NUR ---
PT RESTING WELL WITHOUT C/O OR DISTRESS NOTED. CALL LIGHT WITHIN REACH. WILL CONT TO MONITOR.
[2016-12-28 04:00] VITALS: BP 146/72
[2016-12-28 05:50] LABS: BASOPHILS 0.1 % (0-2); EOSINOPHILS 1.5 % (0-7); HEMATOCRIT 34.6 % (36.0-48.0); HEMOGLOBIN 11.2 g/dL (12-16); IMMATURE GRANULOCYTES 0.9 % (0-5); LYMPHOCYTES 13.4 % (15-50); MCH 27.2 pg (26.0-34.0); MCHC 32.4 g/dL (31.0-37.0); MEAN PLATELET VOLUME 10.8 fL (7.4-10.4); MONOCYTES 8.6 % (2-11); NEUTROPHILS 75.5 % (40-80); PLATELET COUNT 186 10x3/uL (130-400); RBC 4.12 10x6/uL (4.00-5.40); RDW 14.2 % (11.5-14.5); WBC 9.1 10x3/uL (4.8-10.8)
[2016-12-28 06:07] LABS: ALBUMIN 1.9 g/dL (3.4-5.0); ALKALINE PHOSPHATASE 90 U/L (46-116); ALT (SGPT) 12 U/L (10-68); CALC OSMOLALITY 284 mosm/kg (275-300); CALCIUM 8.3 mg/dL (8.5-10.1); CARBON DIOXIDE 33.2 mmol/L (21.0-32.0); CHLORIDE - SERUM 101 mmol/L (98-107); CREATININE - SERUM 0.8 mg/dL (0.6-1.3); GLUCOSE 221 mg/dL (74-106); POTASSIUM - SERUM 3.5 mmol/L (3.5-5.1); PROTEIN - SERUM 5.8 g/dL (6.4-8.2); SODIUM 137 mmol/L (136-145); UREA NITROGEN 24 mg/dL (7-18); eGFR NON AFRICAN AMERICAN 76 mL/min (90-120)
--- NOTE | 2016-12-28 07:27 | NUR ---
AM ROUNDING- RECIEVED REPORT FROM [facility] PORTAL CONSULTANT NURSE CLEMENTE. PT IS CURRENTLY LAYING IN BED ON BACK WITH EYES CLOSED RESTING. ON ROOM AIR. NO MONITOR. IV SEEN TO RIGHT FOREARM WITH IV ANTIBIOTICS CURRENTLY RUNNING. NO NEED AT THIS CURRENT TIME. BED IS IN LOW POSITION, SIDE RAILS ARE UP X2, AND CALL LIGHT IS IN REACH.
[2016-12-28 08:21] VITALS: BP 133/78
--- NOTE | 2016-12-28 09:09 | NUR ---
PT IS UP IN [place] AMBULATING WITH WALKER WITH ASSISTANCE FROM PHYSICAL THERAPY.
[2016-12-28 12:19] VITALS: BP 118/63
--- NOTE | 2016-12-28 12:53 | NUR ---
PT IS CURRENTLY LAYING IN BED ON LEFT SIDE WITH EYES CLOSED RESTING. NO NEED AT THIS CURRENT TIME. WILL CONTINUE TO MONITOR.
--- NOTE | 2016-12-28 16:47 | NUR ---
CALLED INTO PTS ROOM FOR PT "FALLING" IN BATHROOM. UPON CHECKING ON PT, PT APPEARD TO BE LEANING ON THE BACK OF TOILET WITH HEAD AGAINST WALL (BEHIND TOILET). PT STATES SHE DID NOT FALL BUT RATHER SLID AGAINST BACK OF TOILET. PT DENIES ANY DISTRESS OR PAIN. YELLOW ID BAND ON PT AND NON-SKID SOCKS ARE ON PT. PT IS AWARE TO NOT GET OOB UNLESS STAFF MEMBERS ARE THERE TO ASSIST HER. WILL CONTINUE TO MONITOR.
--- NOTE | 2016-12-28 17:28 | NUR ---
PT IS CURRENTLY SITTING UP IN BED WITH EYES OPEN RESTING. FAMILY MEMBER IS AT BEDSIDE. PT DENIES ANY NEED AT THIS CURRENT TIME. WILL CONTINUE TO MONITOR.
--- NOTE | 2016-12-28 19:25 | NUR ---
RECEIVED REPORT, WILL ASSUME CARE OF PT, PT VISITING WITH FAMILY, ASKING FOR SALAD THAT WAS ORDER FOR HER, WILL GIVE, BED IS LOW, SRX2, CALL LIGHT IN REACH, WILL CONTINUE PLAN OF CARE
[2016-12-28 20:00] VITALS: BP 185/67
--- NOTE | 2016-12-28 21:30 | NUR ---
BLOOD SUGAR-201- GAVE 12 UNITS ORDER
[2016-12-29] VITALS: BP 157/82
--- NOTE | 2016-12-29 02:34 | NUR ---
ASSESSMENT COMPLETE, SEE FLOWSHEET, PT SLEEPING, BED IS LOW, SRX2, DARIO ALARM IS ON, CALL LIGHT IN REACH, WILL CONTINUE PLAN OF CARE
[2016-12-29 05:55] VITALS: BP 155/79
[2016-12-29 06:30] LABS: BASOPHILS 0.3 % (0-2); HEMATOCRIT 35.7 % (36.0-48.0); HEMOGLOBIN 11.6 g/dL (12-16); LYMPHOCYTES 16.2 % (15-50); MCH 27.6 pg (26.0-34.0); MCHC 32.5 g/dL (31.0-37.0); MONOCYTES 12.2 % (2-11); NEUTROPHILS 68.3 % (40-80); PLATELET COUNT 187 10x3/uL (130-400); RDW 14.4 % (11.5-14.5); WBC 8.6 10x3/uL (4.8-10.8)
[2016-12-29 06:49] LABS: ALBUMIN 1.8 g/dL (3.4-5.0); ALKALINE PHOSPHATASE 93 U/L (46-116); ALT (SGPT) 14 U/L (10-68); BILIRUBIN - TOTAL 0.45 mg/dL (0.2-1.3); CALC OSMOLALITY 286 mosm/kg (275-300); CALCIUM 8.1 mg/dL (8.5-10.1); CARBON DIOXIDE 33.6 mmol/L (21.0-32.0); CHLORIDE - SERUM 105 mmol/L (98-107); CREATININE - SERUM 0.7 mg/dL (0.6-1.3); GLUCOSE 133 mg/dL (74-106); POTASSIUM - SERUM 3.4 mmol/L (3.5-5.1); PROTEIN - SERUM 5.9 g/dL (6.4-8.2); SODIUM 142 mmol/L (136-145); UREA NITROGEN 18 mg/dL (7-18); eGFR NON AFRICAN AMERICAN 89 mL/min (90-120)
--- NOTE | 2016-12-29 07:47 | NUR ---
AM ROUNDING- RECIEVED REPORT FROM CHARACTER ACTRESS NURSE CLEMENTE. PT IS CURRENTLY LAYING IN BED ON RIGHT SIDE WITH EYES CLOSED RESTING. ON ROOM AIR. NO MONITOR. IV SEEN TO RIGHT FOREARM WITH IV ANTIBIOTICS CURRENTLY RUNNING ORDERED. NO NEED AT THIS CURRENT TIME. DARIO BED ALARM IS ON. BED IS IN LOW POSITION, SIDE RAILS ARE UP X2, AND CALL LIGHT IS IN REACH. WILL CONTINUE TO MONITOR AND CONTINUE WITH PLAN OF CARE.
[2016-12-29 08:00] VITALS: BP 101/61
[2016-12-29 12:00] VITALS: BP 146/82
[2016-12-29 16:00] VITALS: BP 140/71
--- NOTE | 2016-12-29 17:46 | NUR ---
PT IS CURRENTLY SITTING UP IN BED WITH EYES OPEN RESTING. THIS NURSE ASSISTED PT IN GETTING SITUATED IN BED. PT STATES SHE WILL NEED A PAIN PILL CLOSER TO BEDTIME. WILL PASS THIS ALONG IN REPORT. WILL CONTINUE TO MONITOR.
--- NOTE | 2016-12-29 19:15 | NUR ---
RECEIVED REPORT, WILL ASSUME CARE OF PT, PT SITTING UP ON SIDE OF BED EATING A SANDWICH, DENIES ANY NEEDS, BED IS LOW, SRX2, CALL LIGHT IN REACH, WILL CONTINUE PLAN OF CARE
[2016-12-29 20:00] VITALS: BP 155/82
--- NOTE | 2016-12-29 20:31 | NUR ---
[id number] Ohara, ALSO COMPLAINS OF BACK PAIN, GAVE JOSYCO 10, ORDER
[2016-12-30] VITALS: BP 142/77
[2016-12-30 04:00] VITALS: BP 145/75
[2016-12-30 05:37] LABS: BASOPHILS 0.1 % (0-2); EOSINOPHILS 1.4 % (0-7); HEMATOCRIT 35.5 % (36.0-48.0); HEMOGLOBIN 11.3 g/dL (12-16); IMMATURE GRANULOCYTES 1.2 % (0-5); LYMPHOCYTES 19.7 % (15-50); MCHC 31.8 g/dL (31.0-37.0); MCV 84.9 fL (80.0-100.0); MEAN PLATELET VOLUME 11.1 fL (7.4-10.4); MONOCYTES 9.5 % (2-11); NEUTROPHILS 68.1 % (40-80); PLATELET COUNT 198 10x3/uL (130-400); RBC 4.18 10x6/uL (4.00-5.40); RDW 14.5 % (11.5-14.5); WBC 8.3 10x3/uL (4.8-10.8)
[2016-12-30 06:18] LABS: ALBUMIN 1.9 g/dL (3.4-5.0); ALKALINE PHOSPHATASE 101 U/L (46-116); CALC OSMOLALITY 286 mosm/kg (275-300); CALCIUM 8.4 mg/dL (8.5-10.1); CARBON DIOXIDE 31.6 mmol/L (21.0-32.0); CHLORIDE - SERUM 105 mmol/L (98-107); CREATININE - SERUM 0.8 mg/dL (0.6-1.3); GLUCOSE 138 mg/dL (74-106); PROTEIN - SERUM 5.9 g/dL (6.4-8.2); SODIUM 142 mmol/L (136-145); UREA NITROGEN 18 mg/dL (7-18); eGFR NON AFRICAN AMERICAN 76 mL/min (90-120)
[2016-12-30 06:20] LABS: ALT (SGPT) 19 U/L (10-68)
--- NOTE | 2016-12-30 07:05 | NUR ---
REPORT RECIEVED. PT RESTING QUIETLY, RR EVEN AND UNLABORED. PT ALERT AND ORIENTED X4. REPORTS PAIN IN BACK AND LEGS, WILL GIVE PRN PAIN MEDICATION. WILL CTM.
[2016-12-30 08:00] VITALS: BP 148/84
--- NOTE | 2016-12-30 11:15 | NUR ---
PT REPORTING NAUSEA. PAGED CORNELIA SANCHEZ AT 1125 FOR ORDERS. WILL CTM.
--- NOTE | 2016-12-30 11:28 | NUR ---
SPOKE TO CORNELIA HERCULES APN ABOUT PTS NAUSEA. GAVE VERBAL ORDER FOR ZOFRAN INJECTION. WILL GIVE AND CTM.
[2016-12-30 12:00] VITALS: BP 132/73
--- NOTE | 2016-12-30 13:27 | NUR ---
ASSSITED PT TO BATHROOM X1 ASSIST. PT WALKS WELL, UNSTEADY ON HER FEET A TIMES. PT SITTING ON EDGE OF BED TO FINISH LUNCH, WILL CTM.
--- NOTE | 2016-12-30 14:24 | NUR ---
PT REFUSED RESPIRATORY TX DUE TO NAUSEA.
[2016-12-30 16:00] VITALS: BP 144/76
--- NOTE | 2016-12-30 18:23 | NUR ---
PT RESTING QUIETLY, RR EVEN AND UNLABORED. PT DENIES NEEDS AT THIS TIME. WILL GIVE REPORT ON PT CONDTION FOR THE DAY.
--- NOTE | 2016-12-30 19:02 | NUR ---
OT NOTE: PT COMPLETED BED MOB WITH SBA. PT COMPLETED SITTING BALANCE WITH CGA. PT COMPLETED BUE AROM EXS FOR INCREASED I. CORINNE NIEVES COTA/Jose
--- NOTE | 2016-12-30 19:49 | NUR ---
RECEIVED REPORT, WILL ASSUME CARE OF PT, PT RESTING ON L. SIDE, BED IS LOW, SRX2,CALL LIGHT IN REACH, DARIO ALARM IS ON, WILL CONTINUE PLAN OF CARE
[2016-12-30 20:51] VITALS: BP 135/72
[2016-12-31 01:15] VITALS: BP 144/81
[2016-12-31 03:45] VITALS: BP 161/95
[2016-12-31 04:58] LABS: BASOPHILS 0.1 % (0-2); EOSINOPHILS 1.7 % (0-7); HEMATOCRIT 36.7 % (36.0-48.0); HEMOGLOBIN 11.5 g/dL (12-16); IMMATURE GRANULOCYTES 1.4 % (0-5); LYMPHOCYTES 18.9 % (15-50); MCH 26.9 pg (26.0-34.0); MCHC 31.3 g/dL (31.0-37.0); MCV 85.9 fL (80.0-100.0); MEAN PLATELET VOLUME 11.1 fL (7.4-10.4); MONOCYTES 10.9 % (2-11); PLATELET COUNT 208 10x3/uL (130-400); RBC 4.27 10x6/uL (4.00-5.40); RDW 14.7 % (11.5-14.5); WBC 7.8 10x3/uL (4.8-10.8)
[2016-12-31 05:31] LABS: ANION GAP 6.1 mmol/L (8-16); BILIRUBIN - TOTAL 0.48 mg/dL (0.2-1.3); CALCIUM 8.4 mg/dL (8.5-10.1); CARBON DIOXIDE 35.4 mmol/L (21.0-32.0); POTASSIUM - SERUM 4.5 mmol/L (3.5-5.1); PROTEIN - SERUM 6.4 g/dL (6.4-8.2)
[2016-12-31 05:37] LABS: CREATININE - SERUM 1.1 mg/dL (0.6-1.3)
--- NOTE | 2016-12-31 07:09 | NUR ---
AM ROUNDS- PT SITTING UP TO SIDE OF BED, DENIES ANY NEEDS AT THIS TIME. RESP EVEN AND UNLABORED, RT FA INFUSING ZOSYN AT 12.3CC/HR. BED LOW AND WHEELS LOCKED, BEDSIDE RAILS X2, CALL LIGHT IN REACH, NAD NOTED, WILL CONTINUE TO MONITOR.
--- NOTE | 2016-12-31 07:55 | NUR ---
PT C/O NAUSEA, 4MG OF ZOFRAN GIVEN AT THIS TIME. ALSO GAVE AM MEDS. PT IN BED, DENIES ANY OTHER NEEDS AT THIS TIME. CALL LIGHT IN REACH, NAD NOTED, WILL CONTINUE TO MONITOR.
[2016-12-31 08:00] VITALS: BP 112/58
--- NOTE | 2016-12-31 11:34 | NUR ---
BLOOD SUGAR OF 212, 12UNITS OF HUMULIN R GIVE PER S/S. PT IN BED, DENIES ANY NEEDS AT THIS TIME. CORNELIA PIERRE APN AT BEDSIDE TO ASSESS PT. CALL LIGHT IN REACH, NAD NOTED, WILL CONTINUE TO MONITOR.
[2016-12-31 12:00] VITALS: BP 175/67
--- NOTE | 2016-12-31 12:08 | NUR ---
Nutrition Follow Up: Pt is eating 100% meal avg on a diabetic diet. Wt gain since admit noted. +BM 12/30/16. Labs reviewed - glucose trending down but continues elevated. Meds noted. Rec continue current diet. RD following.
--- NOTE | 2016-12-31 14:29 | NUR ---
OT NOTE: PERFORMED BED MOB WITH CGA/MIN ASSIST; STATIC SITTING WITH SPV; SIT TO STAND WITH MIN ASSIST TO MAINTAIN STANDING BALANCE
--- NOTE | 2016-12-31 14:30 | NUR ---
NOTIFIED PT THAT SHE IS NPO FOR CT OF ABD AND PELVIS. PT VERBALIZED UNDERSTANDING, DENIES ANY NEEDS AT THIS TIME. CALL LIGHT IN REACH, NURSING STUDENTS AT BEDSIDE, NAD NOTED, WILL CONTINUE TO MONITOR.
[2016-12-31 16:00] VITALS: BP 122/82
--- NOTE | 2016-12-31 17:06 | NUR ---
BLOOD SUGAR OF 329, 20UNITS OF HUMULIN R GIVEN PER S/S. PT UP TO SIDE OF BED, EATING DINNER, DENIES ANY NEEDS AT THIS TIME. CALL LIGHT IN REACH, NAD NOTED, WILL CONTINUE TO MONITOR.
--- NOTE | 2016-12-31 19:42 | NUR ---
OT NOTE: PT COMPLETED BED MOB WITH MIN A. PT COMPLETED EOB SITTING WITH SBA. PT COMPLETED SIMPLE GROOMING WITH SET UP. THANK YOU, LYUBOV GARCIA/Jose
--- NOTE | 2016-12-31 20:20 | NUR ---
REST IN BED, EYE OPEN, HOB 30 DEGREE, STATE SHE FEEL COMFORTABLE IN THIS POSITION.
[2016-12-31 21:26] VITALS: BP 153/75
--- NOTE | 2017-01-01 03:10 | NUR ---
PT RESTING COMFORTABLY, CONTINUE TO MONITOR CLOSELY. BED LOW, CALL LIGHT IN REACH, SIDE RAILS X 2, HOB 20 DEGREES.
--- NOTE | 2017-01-01 04:38 | NUR ---
REST IN BED, EYE CLOSE, CALL LIGHT IN REACH.
[2017-01-01 06:05] LABS: BASOPHILS 0.3 % (0-2); EOSINOPHILS 2.4 % (0-7); HEMATOCRIT 35.3 % (36.0-48.0); IMMATURE GRANULOCYTES 1.7 % (0-5); LYMPHOCYTES 24.8 % (15-50); MCH 26.7 pg (26.0-34.0); MCHC 31.2 g/dL (31.0-37.0); MCV 85.7 fL (80.0-100.0); MEAN PLATELET VOLUME 10.6 fL (7.4-10.4); MONOCYTES 10.9 % (2-11); NEUTROPHILS 59.9 % (40-80); PLATELET COUNT 216 10x3/uL (130-400); RBC 4.12 10x6/uL (4.00-5.40); RDW 14.8 % (11.5-14.5)
[2017-01-01 06:08] LABS: WBC 5.8 10x3/uL (4.8-10.8)
[2017-01-01 06:33] LABS: ALBUMIN 1.9 g/dL (3.4-5.0); ALKALINE PHOSPHATASE 112 U/L (46-116); ALT (SGPT) 26 U/L (10-68); CALC OSMOLALITY 285 mosm/kg (275-300); CALCIUM 8.7 mg/dL (8.5-10.1); CARBON DIOXIDE 34.6 mmol/L (21.0-32.0); CHLORIDE - SERUM 105 mmol/L (98-107); CREATININE - SERUM 0.8 mg/dL (0.6-1.3); GLUCOSE 131 mg/dL (74-106); POTASSIUM - SERUM 4.2 mmol/L (3.5-5.1); PROTEIN - SERUM 5.9 g/dL (6.4-8.2); SODIUM 141 mmol/L (136-145); UREA NITROGEN 21 mg/dL (7-18); eGFR NON AFRICAN AMERICAN 76 mL/min (90-120)
--- NOTE | 2017-01-01 07:21 | NUR ---
AM ROUNDS- PT IN BED, STILL C/O OF ABD PAIN, DID NOT WANT NOTHING FOR PAIN AT THIS TIME. ABD TENDER AND DISTENDED A LITTLE FIRM. RESP EVEN AND REGULAR. LT FA INFUSING ZOSYN AT 12.5CC/HR. PT DENIES ANY NEEDS AT THIS TIME. BED LOW AND WHEEL LOCKED, BEDSIDE RAILS X2, CALL LIGHT IN REACH, DARIO MAT ON AND IN PLACE. NAD NOTED, WILL CONTINUE TO MONITOR.
[2017-01-01 07:59] VITALS: BP 140/69
--- NOTE | 2017-01-01 08:49 | NUR ---
AM MEDS GIVEN AT THIS TIME. PT REQUESTED FOR HER BLOOD SUGAR TO BE CHECKED. BLOOD SUGAR CHECKED AND IT WAS 184. PT STATES SHE FEELS A LITTLE SHAKY THIS AM. PT C/O OF PAIN BUT DOES NOT WANT ANYTHING FOR PAIN AT THIS TIME. CALL LIGHT IN REACH, NAD NOTED, WILL CONTINUE TO MONITOR.
--- NOTE | 2017-01-01 11:27 | NUR ---
OT NOTE: PT PERFORMED UE AROM EXS TO INCUDE ALL JOINTS. PERFORMED BED MOB AND EDGE OF BED SITTING. PT DID NOT NEED TO GO TO BATHROOM AND REPORTED THAT SHE HAD JUST WALKED WITH PHYS THERAPY. L UE REMAINS WEAK; INSTRUCTED PT TO PERFORM EXS THROUGHOUT THE DAY
--- NOTE | 2017-01-01 11:32 | NUR ---
BLOOD SUGAR OF 272, 16 UNITS OF HUMULIN R GIVEN PER S/S. PT IN BED, DENIES ANY NEEDS AT THIS TIME. CALL LIGHT IN REACH, NAD NOTED, WILL CONTINUE TO MONITOR.
[2017-01-01 12:03] VITALS: BP 135/70
--- NOTE | 2017-01-01 14:52 | NUR ---
IVBP OF ZOSYN HUNG AT THIS TIEM, TO INFUSE OVER 4HR. ALSO GAVE GABAPETIN ORDERED. PT UP TO CHAIR, TALKING WITH KATERYNA ACID TANK CLEANER. PT DENIES ANY NEEDS AT THIS TIME. CALL LIGHT IN REACH, NAD NOTED, WILL CONTINUE TO MONITOR.
--- NOTE | 2017-01-01 15:15 | NUR ---
Is the patient Alert and Oriented? Yes 0 * How many steps to enter\exit or inside your home? four 0 * PCP DR Nichols 0 * Pharmacy [facility] in [facility] 0 * Preadmission Environment Home with Family 0 * ADLs Partial Dependent 0 * Partial ADLs (Assistance needed) Medication Management Transfers 0 * Equipment Rolling Walker Shower Chair Walker Wheelchair 0 * Other Equipment Had glucometer but it is broken Would like a commode 0 * List name and contact numbers for known caregivers / representatives who currently or will assist patient after discharge: Giuliana Holloway- r- [phone] 0 * Community resources currently utilized Home Health 0 * Please name any agencies selected above. [facility] 0 * Additional services required to return to the preadmission environment? Yes 0 * Can the patient safely return to the preadmission environment? No 0 * Has this patient been hospitalized within the prior 30 days at any hospital? No 0
--- NOTE | 2017-01-01 15:58 | NUR ---
CM MET WITH PATIENT AT THE BEDSIDE. SHE WAS SITTING OOB IN THE CHAIR. STATES SHE IS TIRED. PATIENT PLANS TO GO TO REHAB PRIOR TO RETURNING TO HOME. SHE HAD BEEN ON SERVICE W/ [facility] PRIOR TO ADMISSION. TC TO [place] AND SPOKE WITH HER PRIMARY NURSE, FOUZIA. HE STATES THE PATIENT WAS DISCHARGED FROM SERVICE 11/18/16. THEY COULD NOT LOCATE HER FOR HER FINAL VISIT. HER ADDRESS WHEN VERIFIED DURING INTERVIEW WAS [address] [place] [address]. THIS IS DIFFERENT FROM PREVIOUS ADDRESS. PATIENT'S DAUGHTER ASSIST W/ HER CARE. THE H/H NURSE STATES "THE DYNAMIC IS SOMEWHAT DIFFERENT AT HER HOME". ??? HER OTHER FAMILY MEMBERS ARE OUT OF STATE. PATIENT OBTAINS HER MEDICATIONS FROM [facility] IN [facility]. SHE HAS TO SPEND GREATER THAN $200.00 A MONTH ON MEDICATIONS FOR HER NEBULIZER. SHE ALSO HAD A GLUCOMETER WHICH IS NOW BROKEN. PATIENT HAS GENERALIZED WEAKNESS AND FUNCTIONAL QUADRIPLEGIA. SHE IS RECEIVING PHYSICAL THERAPY. LOST HER BALANCE X2 WHILE AMBULATING W/ WALKER 180 W/ 35 % ASSIST. SHE WOULD LIKE REHAB . CM SPOKE W/ DR WOMACK AND CORNELIA PIERRE APN. REHAB EVAL ORDER RECEIVED. SHE HAS A WALKER, WHEELCHAIR, SHOWER CHAIR AND NEBULIZER. SHE CANNOT RECALL HER DME PROVIDER. CM TO FOLLOW TO ASSIST APPROPRIATE W/ DCP.
[2017-01-01 16:00] VITALS: BP 123/63
--- NOTE | 2017-01-01 16:14 | NUR ---
Rehab Prescreening Consult recieved and the chart has been reviewed. Recieved a call from her CM Tricia Burrell stating the patient feels she would benefit from acute rehab and wants to spend some time there prior to returning home. Rehab will visit with her tomorrow and plan to accept when the physician feels she can participate in 3 hrs of therapy a day 5 days a week. Torrie Little RN Clinical Liaison, Rehab
--- NOTE | 2017-01-01 17:11 | NUR ---
BLOOD SUGAR OF 271, 16UNITS OF HUMULIN R GIVEN PER S/S. PT UP TO CHAIR, EATING DINNER, RATE PAIN LEVEL 2/10 AT THIS TIME. PT DENIES ANY NEEDS, CALL LIGHT IN REACH, NAD NOTED, WILL CONTINUE TO MONITOR.
--- NOTE | 2017-01-01 17:39 | NUR ---
OT NOTE: PT COMPLETED DYNAMIC SITTING BALANCE WITH SBA. PT COMPLETED BUE FM SKILLS FOR INCREASED I WITH ADLS. PT COMPLETED SELF FEEDING WITH SPV. PT COMPLETED GROOMING UPRIGHT IN CHAIR WITH SET UP. THANK YOU, ANA GARCIA/Jose
--- NOTE | 2017-01-01 20:33 | NUR ---
PT LYING IN BED ON RIGHT SIDE, AWAKE, ALERT, DEMONSTRATES GREAT GENERALIZED WEAKNESS, STATES SHE HAS BEEN FALLING A LOT. PT DENIES ANY NEEDS AT THIS TIME. PT HAS VERBALLY AGREED TO CALL ANYTIME SHE NEEDS ANYTHING AND ANY ASSISTANCE. WILL CONTINUE TO MONITOR CLOSELY. BED LOW, CALL LIGHT IN REACH, SIDE RAILS X 2, HOB 20 DEGREES, DARIO MAT UNDER PT, ON AND FUNCTIONING.
[2017-01-01 20:48] VITALS: BP 123/59
--- NOTE | 2017-01-01 22:20 | NUR ---
ORANGE JELLO GIVEN HS SNACK WITH INSULIN
[2017-01-02] VITALS: BP 156/81
--- NOTE | 2017-01-02 07:23 | NUR ---
PT SITTING UP IN BED DENIES NEEDS. DARIO MAT ALARM IS ON AND PATENT, PT TO CALL FOR HELP GETTING UP WILL CONT TO MONITOR
--- NOTE | 2017-01-02 07:24 | NUR ---
AM ROUNDING DONE. PT IS ALERT AND AWAKE. PT WITH COMPLAINTS OF HEADACHE. SHE RECEIVED NORCO AT 0430, BUT PT IS REQUESTING AN ORDER FOR MOTRIN FOR HER PIEDRA. PT IS ON RA, IVF- NS @ [facility] TO LEFT FOREARM SITE. ZOSYN IS CURRENTLY RUNNING OVER 4 HOURS. REFUSING SCDS. WILL CONT TO MONITOR.
[2017-01-02 08:06] VITALS: BP 120/58
--- NOTE | 2017-01-02 09:41 | NUR ---
HAVE SPOKEN WITH ZINA WITH [facility]. SHE STATED THAT THEY WOULD ACCEPT THE PATIENT TODAY. WILL GET WITH JOELLEN LOCKE OR DR WOMACK FOR DISCHARGE ORDERS.
[2017-01-02 10:02] LABS: BASOPHILS 0.3 % (0-2); HEMATOCRIT 33.8 % (36.0-48.0); HEMOGLOBIN 10.7 g/dL (12-16); LYMPHOCYTES 20.3 % (15-50); MCH 26.9 pg (26.0-34.0); MCHC 31.7 g/dL (31.0-37.0); MCV 84.9 fL (80.0-100.0); MEAN PLATELET VOLUME 10.4 fL (7.4-10.4); MONOCYTES 13.4 % (2-11); PLATELET COUNT 197 10x3/uL (130-400); RBC 3.98 10x6/uL (4.00-5.40); RDW 14.9 % (11.5-14.5); WBC 6.1 10x3/uL (4.8-10.8)
[2017-01-02 10:35] LABS: MAGNESIUM - SERUM 1.9 mg/dL (1.8-2.4); PHOSPHOROUS 3.1 mg/dL (2.5-4.9); POTASSIUM - SERUM 3.9 mmol/L (3.5-5.1)
[2017-01-02] MEDS ORDERED: HUMULIN R100 U/ML SC (12:35)
[2017-01-02] MEDS ORDERED: AUGMENTIN 875-11 TAB PO (12:38)
[2017-01-02 13:02] VITALS: BP 132/68
--- NOTE | 2017-01-02 14:33 | NUR ---
PT REFUSED UPDRAFT TX DUE TO NAUSEA
--- NOTE | 2017-01-02 14:57 | NUR ---
PT HAS BEEN USING CALL LIGHT APPROPRIATELY TO ASK FOR ASSISTANCE. PT HAS BEEN UP THE BATHROOM SEVERAL TIMES. DARIO ALARM ON AND IN USE. PT DENIES PAIN AT THIS TIME. PLAN IS FOR PT TO BE D/C'D TO REHAB TODAY AWAITING D/C PAPERWORK FOR PT TO BE TRANSFERRED. KATHY CONT TO MONITOR.
--- NOTE | 2017-01-02 18:34 | NUR ---
DISCHARGE NOTE: PT'S IV ABX COMPLETED. CHANGED TO [facility] LOC. D/C INSTRUCTIONS AND D/C MED LIST REVIEWED WITH PATIENT WHO VERBALIZED UNDERSTANDING. PT COPY GIVEN TO PT IN [place]. PT WILL BE TRANSFERRED TO REHAB. [facility] LOC D/C'D. PT WILL CONTINUE ON HOME MEDS IN ADDITION TO PO ABX. PT TO BE TAKEN TO REHAB VIA WHEELCHAIR.
== END 2017-01-02 18:44 | DRG 689 ==
LOC: D.SDCHOLD 16:27 → D.M2 16:27 → D.WS 16:34 → D.M2 12-27 15:29
PROVIDERS: Family Medicine; ADMIT Family Medicine
DX: N30.81 Other cystitis with hematuria (principal); R53.2 Functional quadriplegia; B96.1 Klebsiella pneumoniae [K. pneumoniae] as the cause of diseases classified elsewhere; E11.65 Type 2 diabetes mellitus with hyperglycemia; E11.40 Type 2 diabetes mellitus with diabetic neuropathy, unspecified; I25.10 Atherosclerotic heart disease of native coronary artery without angina pectoris; I11.0 Hypertensive heart disease with heart failure; I50.9 Heart failure, unspecified; I69.998 Other sequelae following unspecified cerebrovascular disease; J44.9 Chronic obstructive pulmonary disease, unspecified; F41.8 Other specified anxiety disorders; Z95.5 Presence of coronary angioplasty implant and graft; Z95.1 Presence of aortocoronary bypass graft

== ENCOUNTER 2017-01-02 16:59 | Inpatient (IN) | payer MEDICARE ==
[~2017-01-02 16:59] MED LIST changes: +AUGMENTIN 875-11 TAB PO; +HUMULIN R100 U/ML SC; +NYSTATIN1 PWD TOPICAL; +NYSTATIN15 GM TOPICAL; +PROAIR HFA8.5 GM INH
--- NOTE | 2017-01-02 19:04 | NUR ---
PT RECIEVED FROM ACUTE FLOOR TO REHAB ROOM 111[address] ADM[address] TO [address] RAMOS SERVICES.
--- NOTE | 2017-01-02 21:50 | NUR ---
PT STATED THAT HER INSULIN DOSE WAS WRONG. DR FRANCISCO CALLED. HE STATED TO HOLD THE MED TONIGHT AND HE WOULD STRAIGHTEN IT OUT IN AM.
[2017-01-02 21:56] VITALS: BMI 21.4
--- NOTE | 2017-01-02 22:10 | NUR ---
ADMISSION ASSESSMENT COMPLETE. DENIES CURRENT NEEDS.
[2017-01-02 22:25] VITALS: BP 128/55
--- NOTE | 2017-01-02 23:12 | NUR ---
PT IS RESTING QUIETLY IN BED WITH EYES CLOSED. RESPS ARE EVEN AND UNLABORED. NO ACUTE DISTRESS NOTED.
--- NOTE | 2017-01-03 00:36 | NUR ---
PT ASSISTED TO THE BATHROOM WITH FACILITIES CLERK. VOIDED WITHOUT DIFFICULTY. DUODERM PUT ON 2 SCABBED AREAS ON INNER COXXYX UNTIL WOUND CARE NURSE CAN EVAL IN AM.
--- NOTE | 2017-01-03 04:15 | NUR ---
PT ASSISTED TO THE BATHROOM WITH INSTRUCTOR MODELING. GAIT IS A BIT WOBBLY AT TIMES, BUT SHE DID WELL. VOIDED WITHOUT DIFFICULTY.
[2017-01-03 06:51] LABS: BASOPHILS 0.3 % (0-2); EOSINOPHILS 2.1 % (0-7); HEMATOCRIT 33.9 % (36.0-48.0); HEMOGLOBIN 10.8 g/dL (12-16); IMMATURE GRANULOCYTES 1.2 % (0-5); LYMPHOCYTES 20.6 % (15-50); MCH 26.9 pg (26.0-34.0); MCHC 31.9 g/dL (31.0-37.0); MCV 84.3 fL (80.0-100.0); MEAN PLATELET VOLUME 10.5 fL (7.4-10.4); MONOCYTES 14.9 % (2-11); NEUTROPHILS 60.9 % (40-80); PLATELET COUNT 204 10x3/uL (130-400); RBC 4.02 10x6/uL (4.00-5.40); RDW 15.1 % (11.5-14.5); WBC 6.1 10x3/uL (4.8-10.8)
[2017-01-03 07:09] LABS: CALC OSMOLALITY 279 mosm/kg (275-300); CARBON DIOXIDE 29.7 mmol/L (21.0-32.0); CHLORIDE - SERUM 103 mmol/L (98-107); CREATININE - SERUM 0.7 mg/dL (0.6-1.3); GLUCOSE 175 mg/dL (74-106); POTASSIUM - SERUM 3.9 mmol/L (3.5-5.1); SODIUM 137 mmol/L (136-145); UREA NITROGEN 17 mg/dL (7-18); eGFR NON AFRICAN AMERICAN 89 mL/min (90-120)
--- NOTE | 2017-01-03 08:19 | NUR ---
EATING BREAKFAST IN ROOM. CALL LIGHT IN REACH
[2017-01-03 08:48] VITALS: BP 128/60
--- NOTE | 2017-01-03 08:51 | NUR ---
PT UP IN CHAIR EATING LUNCH. PT NOTED TO HAVE IMPROVED COORDINATION IN L HAND. PT AABLE TO OPEN CONTAINERS AND HOLD BUTTER WITH L HAND AND KNIFE WITH R HAND. PERFORMED ALL FEEDING WITH DELAY BUT INDEPENDENT WITH TASK
[2017-01-03 11:58] VITALS: BMI 21.4
--- NOTE | 2017-01-03 12:00 | NUR ---
PT RESTING IN BED WITH EYES OPEN CALL LIGHT IN REACH NO PROBLEMS WILL MONITER
--- NOTE | 2017-01-03 16:11 | NUR ---
Wound care consult: There is a stage 2 pressure injury on left buttock. Measuring 3cm x 1.5cm x 0.3cm. There was moist escar covering the wound initially, but was removed when wound was being cleaned. The wound bed is pink and there is no odor. Just above this wound is an unstageable area measuring 1.5cm x 1.5cm x moist escar. It is loosening from edges and will most likely come off with next dressing change (in 72 hours). Covered both sites with Duoderm lite. Pt was received lying on her right side and stated that she tries to stay off her bottom when in bed. Encouraged her to reposition herself frequently off of her back/bottom. She voiced understanding. Will continue to monitor.
--- NOTE | 2017-01-03 21:20 | NUR ---
PT REST IN BED AND EAT APPLESAUCE.
--- NOTE | 2017-01-04 00:08 | NUR ---
ASSISTED PT TO BATHROOM AND BACK TO BED.
[2017-01-04 00:38] VITALS: BP 128/58
--- NOTE | 2017-01-04 03:39 | NUR ---
REST IN BED, EYE CLOSE, CALL LIGHT IN REACH.
[2017-01-04 06:04] LABS: BASOPHILS 0.7 % (0-2); EOSINOPHILS 2.4 % (0-7); HEMATOCRIT 31.7 % (36.0-48.0); HEMOGLOBIN 10.1 g/dL (12-16); IMMATURE GRANULOCYTES 0.9 % (0-5); LYMPHOCYTES 23.1 % (15-50); MCH 26.9 pg (26.0-34.0); MCHC 31.9 g/dL (31.0-37.0); MCV 84.5 fL (80.0-100.0); MEAN PLATELET VOLUME 10.6 fL (7.4-10.4); MONOCYTES 13.3 % (2-11); NEUTROPHILS 59.6 % (40-80); PLATELET COUNT 201 10x3/uL (130-400); RBC 3.75 10x6/uL (4.00-5.40); RDW 15.2 % (11.5-14.5); WBC 5.5 10x3/uL (4.8-10.8)
[2017-01-04 06:13] LABS: CALC OSMOLALITY 280 mosm/kg (275-300); CALCIUM 7.9 mg/dL (8.5-10.1); CARBON DIOXIDE 30.6 mmol/L (21.0-32.0); CHLORIDE - SERUM 105 mmol/L (98-107); CREATININE - SERUM 0.7 mg/dL (0.6-1.3); GLUCOSE 149 mg/dL (74-106); POTASSIUM - SERUM 3.9 mmol/L (3.5-5.1); SODIUM 138 mmol/L (136-145); UREA NITROGEN 19 mg/dL (7-18); eGFR NON AFRICAN AMERICAN 89 mL/min (90-120)
--- NOTE | 2017-01-04 06:24 | NUR ---
RESTING IN BED WITH EYES CLOSED. NO S/S OF DISTRESS OBSERVED. CALL LIGHT AND OVERBED TABLE IN REACH.
--- NOTE | 2017-01-04 07:18 | NUR ---
RESTING QUIETLY IN BED. CALL LIGHT IN REACH. BED IN LOW POSITION. BED ALARM IN PLACE AND IN USE.
[2017-01-04 08:00] VITALS: BP 130/70
--- NOTE | 2017-01-04 11:26 | NUR ---
SITTING UP ON SIDE OF BED EATING BREAKFAST OFFERS NO COMPLAINTS. ALERT AND ORIENTED X4 CALL LIGHT WITHIN REACH. BED LOW AND ALARM ON . WILL CONTINUE TO MONITOR
--- NOTE | 2017-01-04 17:59 | NUR ---
SITTING UP ON SIDE OF BED EATING DINNER. FAMILY AT BEDSIDE. DENIES ANY NEEDS. CALL LIGHT WITHIN REACH. WILL CONTINUE TO MONITOR
--- NOTE | 2017-01-04 19:30 | NUR ---
REST IN BED AND WATCH TV.
[2017-01-04 21:31] VITALS: BP 133/77
--- NOTE | 2017-01-04 21:42 | NUR ---
GIVEN APPLESAUCE FOR SNACK.
--- NOTE | 2017-01-05 02:14 | NUR ---
RESTING IN BED WITH EYES CLOSED. NO S/S OF DISTRESS OBSERVED. BED ALARM IN PLACE AND FUNCTIONING PROPERLY. DRESSING TO COCCYX. CLEAN, DRY AND INTACT. CALL LIGHT AND OVERBED TABLE IN REACH.
--- NOTE | 2017-01-05 07:55 | NUR ---
LYING IN BED RESTING COMFORTABLY. ALERT AND ORIENTED X4. DENIES ANY NEEDS. CALL LIGHT WITHIN REACH, BED LOW AND ALARM ON. WILL CONTINUE TO MONITOR
[2017-01-05 08:00] VITALS: BP 160/76
--- NOTE | 2017-01-05 13:11 | NUR ---
LYING IN BED RESTING. DENIES ANY NEEDS CALL LIGHT WITHIN REACH. WILL CONTINUE TO MONITOR
--- NOTE | 2017-01-05 19:59 | NUR ---
WHEN THIS NURSE WALKED INTO THE ROOM PT. WAS AMBULATING WITH WALKER AND NO ASSIST. DAUGHTER AND TWO GRANDCHILDRES IN THE BED. ASSISTED TO W/C AND REEDUCATED PT AND FAMILY ON HIGH RISK FOR FALLS AND INJURIES THAT COULD BE SUBSTAINED. BOTH PT. AND FAMILY GAVE VERBAL AGREEMENT THAT WOULD NOT HAPPEN AGAIN. DENIES ANY PAIN OR DISCOMFORT. ALERT AND ORIENTED X4.
[2017-01-05 20:38] VITALS: BP 125/71
--- NOTE | 2017-01-05 21:15 | NUR ---
RESTING IN BED WITH EYES OPEN AND TV ON. PLEASANT AND COOPERATIVE. DENIES ANY PAIN OR DISCOMFOT. CALL LIGHT AND OVERBED TABLE IN REACH.
--- NOTE | 2017-01-06 01:33 | NUR ---
RESTING QUIETLY IN BED WITH EYES CLOSED. RESPS ARE EVEN AND UNLABORED. NO ACUTE DISTRESS NOTED.
--- NOTE | 2017-01-06 04:07 | NUR ---
RESTING IN BED WITH EYES CLOSED. LAYING ON LEFT SIDE. NO S/S OF DISTRESS OBSERVED. CALL LIGHT AND OVERBED TABLE IN REACH.
[2017-01-06 05:34] LABS: BASOPHILS 0.4 % (0-2); HEMATOCRIT 31.9 % (36.0-48.0); HEMOGLOBIN 10.1 g/dL (12-16); IMMATURE GRANULOCYTES 1.1 % (0-5); LYMPHOCYTES 26.7 % (15-50); MCHC 31.7 g/dL (31.0-37.0); MCV 85.3 fL (80.0-100.0); MEAN PLATELET VOLUME 10.7 fL (7.4-10.4); MONOCYTES 13.9 % (2-11); NEUTROPHILS 55.9 % (40-80); PLATELET COUNT 218 10x3/uL (130-400); RBC 3.74 10x6/uL (4.00-5.40); RDW 15.6 % (11.5-14.5); WBC 5.4 10x3/uL (4.8-10.8)
[2017-01-06 05:45] LABS: CALC OSMOLALITY 283 mosm/kg (275-300); CALCIUM 7.9 mg/dL (8.5-10.1); CARBON DIOXIDE 28.6 mmol/L (21.0-32.0); CHLORIDE - SERUM 107 mmol/L (98-107); CREATININE - SERUM 0.7 mg/dL (0.6-1.3); POTASSIUM - SERUM 3.9 mmol/L (3.5-5.1); SODIUM 142 mmol/L (136-145); UREA NITROGEN 16 mg/dL (7-18); eGFR NON AFRICAN AMERICAN 89 mL/min (90-120)
[2017-01-06 05:46] LABS: GLUCOSE 94 mg/dL (74-106)
--- NOTE | 2017-01-06 08:00 | NUR ---
SITTING UP ON SIDE OF BED.BREAKFAST GIVEN.CL IN REACH.
[2017-01-06 08:23] VITALS: BP 150/83
--- NOTE | 2017-01-06 10:14 | NUR ---
PT RESTING IN BED WITH EYES OPEN CALL LIGHT IN REACHW WILL MONITER
--- NOTE | 2017-01-06 16:01 | NUR ---
PATIENT WANTING TO DISCHARGE HOME TO GO TO DAUGHTER [place] ON 01/07/17. [facility] WILL FOLLOW WITH PATIENT. NO NEW DME NEEDED AT THIS TIME. DR. BURGESS 01/16/17 @ 10:10. PATIENT CHOICE FORM FOR HOME HEALTH AND [facility] FORM SIGNED, EXPLAINED AND FILED IN CHART. WILL CONTINUE TO FOLLOW WITH PATIENT .
--- NOTE | 2017-01-06 17:53 | NUR ---
PT RESTING IN BED WITH EYES OPEN CALL LIGHT IN REACH WILL MONITER
--- NOTE | 2017-01-06 18:58 | NUR ---
RESTING IN BED WITH EYES OPEN. PLEASANT AND COOPERAIVE.DENIES ANY PAIN. EXCITED AND TALKATIVE ABOUT LEAVING TOMORROW. ASKED IF SHE HAD ANYONE THAT COULD HELP HER AND SHE STATED "IF MY INSURANCE WILL PAY FOR IT". EXPLAINED SHE WOULD PROBABLY NEED HELP.
[2017-01-06 20:28] VITALS: BP 121/69
--- NOTE | 2017-01-06 21:27 | NUR ---
ASSISTED PT TO TOILET. ABLE TO TAKE BRIEF OFF AND TOILET. WHEN ASSISTING FROM TOILET UNABLE TO PULL BRIEF UP. ASSISTED WITH BRIEF. ALSO, SEEMED TO HAVE A HARD TIME GETTING UP FROM TOILET. TOOK HER 3 TRIES TO GET UP. ATTEMPTS TO ENCOURAGE HER TO HAVE SOMEONE HELP HER. STATES " WHEN MY DAUGHTER LEAVES, SOMETIMES I'M ON THE TOILET AND HOUR, SOMETIMES LONGER. EXPLAINED SHE COULD GET PU'S FROM SITTING ON TOILET TO LONG. AND IT WAS NOT SAFE. STATED ' I KNOW". ASSISTED BACK TO BED. BED ALARM IN PLACE AND FUNCTIONING PROPERLY. DENIES ANY PAIN.
[2017-01-06 22:32] VITALS: BP 121/69
--- NOTE | 2017-01-07 00:32 | NUR ---
RESTING IN BED WITH EYES CLOSED. NO S/S OF DISTRESS OBSERVED. CALL LIGHT AND OVERBED TABLE IN REACH.
--- NOTE | 2017-01-07 04:46 | NUR ---
RESTING IN BED WITH EYES CLOSED. NO S/S OF DISTRESS OBSERVED. CALL LIGHT AND OVERBED TABLE IN REACH.
--- NOTE | 2017-01-07 07:50 | NUR ---
ASSISTED TO RESTROOM WITH STANDBY ASSIST WITH WALKER. ALERT AND ORIENTED X4. ORIENTED TO CALL LIGHT IN RESTROOM. DENIES ANY OTHER NEEDS. WILL CONTIUE TO MONITOR
--- NOTE | 2017-01-07 09:29 | RHP ---
PATIENT: YINKA JACKSON MEDICAL RECORD: [id number] ACCOUNT: [id number] LOCATION:[facility]16 : 54 ADMISSION DATE: 01/02/17 REHABILITATION HISTORY AND PHYSICAL EXAMINATION POST ADMISSION PHYSICIAN EXAMINATION DATE OF ADMISSION: 01/02/2017 ADMITTING DIAGNOSIS: Disuse myopathy. HISTORY OF PRESENT ILLNESS: The patient is admitted to the inpatient rehab for a neurological condition. She is a 66-year-old female patient with a longstanding history of diabetes and peripheral neuropathy. She also has hypertension, high cholesterol, coronary artery disease, coronary artery bypass grafting and bilateral strokes, one on each side leaving her with bilateral weakness. She continues to smoke a pack per day. She has had some gross hematuria for 2 weeks, had been receiving antibiotic therapy due to a chronic kidney stone. She has also had suprapubic pain and bilateral flank pain with urinary frequency. She had a CT scan done on October 07 of the abdomen and pelvis. At that time, the bladder appeared normal, both kidneys appeared normal, and there was an 8-mm stone in the left kidney lower pole. Repeat CT scan, and the renal stone has gone. During her acute hospital stay her kidneys still appear normal. There was gas in the bladder wall consistent with an emphysematous-type cystitis. She states in retrospect that she has had proteinuria for the past couple of weeks. She has had an in-and-out cath. Klebsiella pneumoniae grew out. She has recently had multiple falls, weakness, fatigue and debility. She was noted to have proximal muscle weakness getting up from bed to the chair. She was moderately independent with mobility a couple of weeks prior to the acute hospital stay with use of a rolling walker, and was independent with her ADLs. She is currently set up for moderate assist with her ADLs and moderate assist with mobility secondary to loss of balance. She lives at home with her daughters and she plans to return home hopefully to a prior level of functioning or better. She lives in the [facility]. COMORBIDITIES: She has got a history of CHF, hypertension, coronary artery disease, CVA, syncope, weakness, functional quadriplegia, chronic depression, history of coronary artery bypass grafting, emphysematous cystitis, diabetes and a history of being a smoker. PAST MEDICAL HISTORY: Significant for CVA, TIA, cataracts, diabetes, CHF, history of V-tach, peripheral vascular disease, pneumonia, UTI, constipation, rheumatoid arthritis, chronic back pain and rib fractures, depression and anxiety, peripheral neuropathy and hyperlipidemia. PAST SURGICAL HISTORY: Includes , tubal ligation, left knee surgery, coronary artery bypass grafting, and stents and angioplasty in the past. ALLERGIES: CIPRO, KEFLEX, BENADRYL AND SULFA. CURRENT MEDICATIONS: Include Floranex daily. She is on Lopressor 50 mg daily, metformin 1000 mg daily, Lexapro 20 mg daily, Plavix 75 mg daily, atorvastatin 80 mg daily, aspirin 325 mg daily, Nystatin powder to apply t.i.d., Singulair 10 mg at bedtime, DuoNeb updrafts. She is on insulin, following a sliding scale. Scotrun 10/325 as needed for pain, Mucinex D 2 tabs b.i.d., Neurontin 800 mg t.i.d., Augmentin 1 tab b.i.d., Ventolin inhaler as needed for cough and HISTORY AND PHYSICAL [id number] YINKA JACKSON A congestion and MiraLax 17 grams in 8 ounces of water daily. HABITS: Does have a history of tobacco use. FAMILY HISTORY: Noncontributory. SOCIAL HISTORY: The patient hopes to return back home with her daughters, and get back to her prior level of functioning. REVIEW OF SYSTEMS: GENERAL: Does complain of weakness. HEENT: Denies cold, cough or congestion. CARDIOVASCULAR: Denies any chest pain. LUNGS: Does complain of shortness of breath on ambulation. LABORATORY DATA: White count of 6.1, H&H of 10 and 34, and platelet count was noted to be 204. Sodium is 137, potassium 3.9, BUN and creatinine of 17 and 0.7 and blood sugar was noted to be 175. ASSESSMENT: This is a 66-year-old female patient admitted to rehab with a working diagnosis of disuse myopathy complicated by multiple comorbidities. The patient has potential to make improvement in relation to the following multidisciplinary therapies including to, but not limited to physical, occupational, respiratory, speech, nutritional services, prosthetics and orthotics. Given her complex condition and risk for more complications, rehabilitation services cannot be provided at a lower level of care such as a nursing home facility. PLAN: 1. Admit to [facility] rehab for intensive inpatient therapy to include the following disciplines: A. Physical therapy to improve gait, all transfer skills and bed mobility to a modified independent level. B. Occupational therapy to improve activities of daily living to a modified independent level. C. Case management to assist with discharge planning and placement options. D. Nutrition to assist with nutritional needs. E. Rehabilitation nursing to assist in monitoring the patient's underlying medical conditions and to assist with any type of bowel or bladder management. 2. The patient's current medications and medical care will be continued. 3. The patient will be placed on standard fall precautions. 4. The patient's estimated length of stay is approximately 7-10 days. 5. Discuss this patient during care team staff meeting this week. TRANSINT:[id number] Voice Confirmation ID: [id number] DOCUMENT ID: [id number] ISRAEL notes whether there has been none or any medical/functional change since admission: - NO CHANGE SINCE PRESCREEN. ISRAEL attests patient continues to be appropriate for IRF: - CONTINUES TO BE APPROPRIATE. HISTORY AND PHYSICAL [id number] YINKA JACKSON SCOTT MD at 0929 CC: [id number] DICTATION DATE: 01/03/17 0901 FILM PROJECTOR OPERATOR: 01/03/17 1103 ADM IN [place] [id number] [place] [address]
[2017-01-07 09:52] VITALS: BP 129/70
--- NOTE | 2017-01-07 11:30 | NUR ---
FAMILY HERE.READY FOR D/C HOME.DENIES NEEDS.
--- NOTE | 2017-01-07 12:54 | NUR ---
REVIEWED DISCHARGE INSTRUCTIONS WITH PATIENT AND FAMILY WELL DISCHARGE MEDICATIONS. NO CONCERNS VOICED EXCEPT FAMILY INQUIRED ABOUT A NEW WHEELCHAIR PT STATED THAT SHE DID HAVE ONE AT HOME LONG "THE CHILDREN DIDN'T TEAR IT UP". FAMILY WILL CHECK INTO THIS ONCE THEY GET HOME. ASSISTED PT AND FAMILY OUT TO FRONT TO PERSONAL VEHICLE BUCKLED PT UP IN BACK SEAT OF VEHICLE. FAMILY HAS PT PERSONAL BELONGINGS AND COPY OF DISCHARGE INSTRUCTIONS. MEDICATIONS CALLED INTO PHARMACIST AT [facility].
== END 2017-01-07 12:58 | disposition home health service (06) | DRG 91 ==
LOC: D.REHAB 16:59
PROVIDERS: ADMIT Emergency Medicine
DX: G72.89 Other specified myopathies (principal); R53.2 Functional quadriplegia; J18.9 Pneumonia, unspecified organism; J44.0 Chronic obstructive pulmonary disease with (acute) lower respiratory infection; I11.0 Hypertensive heart disease with heart failure; I50.9 Heart failure, unspecified; R55 Syncope and collapse; R53.1 Weakness; F32.9 Major depressive disorder, single episode, unspecified; Z95.1 Presence of aortocoronary bypass graft; N30.80 Other cystitis without hematuria; F17.200 Nicotine dependence, unspecified, uncomplicated; G62.9 Polyneuropathy, unspecified; E78.00 Pure hypercholesterolemia, unspecified; E11.65 Type 2 diabetes mellitus with hyperglycemia; J44.9 Chronic obstructive pulmonary disease, unspecified; Z86.73 Personal history of transient ischemic attack (TIA), and cerebral infarction without residual deficits

== ENCOUNTER → 2017-02-04 14:24 | Outpatient (CLI) | payer MEDICARE | END | disposition home or self-care (01) | LOC: D.LABREF 14:24 | DX: N39.0 Urinary tract infection, site not specified (principal) ==

== ENCOUNTER 2017-06-27 16:10 | Emergency (ER) | payer MEDICARE ==
[2017-06-27 17:09] LABS: BASOPHILS 0.3 % (0-2); EOSINOPHILS 1.7 % (0-7); HEMATOCRIT 42.2 % (36.0-48.0); HEMOGLOBIN 14.5 g/dL (12-16); IMMATURE GRANULOCYTES 0.3 % (0-5); LYMPHOCYTES 24.8 % (15-50); MCH 29.2 pg (26.0-34.0); MCHC 34.4 g/dL (31.0-37.0); MCV 84.9 fL (80.0-100.0); MEAN PLATELET VOLUME 10.8 fL (7.4-10.4); MONOCYTES 11.6 % (2-11); NEUTROPHILS 61.3 % (40-80); PLATELET COUNT 196 10x3/uL (130-400); RBC 4.97 10x6/uL (4.00-5.40); RDW 13.8 % (11.5-14.5)
[2017-06-27 17:26] LABS: ALBUMIN 3.2 g/dL (3.4-5.0); ANION GAP 6.5 mmol/L (8-16); BILIRUBIN - TOTAL 0.48 mg/dL (0.2-1.3); CALCIUM 9.6 mg/dL (8.5-10.1); CARBON DIOXIDE 33.4 mmol/L (21.0-32.0); CREATININE - SERUM 1.1 mg/dL (0.6-1.3); POTASSIUM - SERUM 4.9 mmol/L (3.5-5.1); PROTEIN - SERUM 7.4 g/dL (6.4-8.2)
== END 2017-06-27 19:30 | disposition home or self-care (01) ==
LOC: D.ER 16:10
PROVIDERS: Physician Assistant
DX: S29.8XXA Other specified injuries of thorax, initial encounter (principal); W19.XXXA Unspecified fall, initial encounter; Y93.89 Activity, other specified; Y92.019 Unspecified place in single-family (private) house as the place of occurrence of the external cause; E11.9 Type 2 diabetes mellitus without complications; Z79.4 Long term (current) use of insulin; I95.9 Hypotension, unspecified; J44.9 Chronic obstructive pulmonary disease, unspecified; I10 Essential (primary) hypertension; Z86.73 Personal history of transient ischemic attack (TIA), and cerebral infarction without residual deficits; F17.200 Nicotine dependence, unspecified, uncomplicated

== ENCOUNTER 2017-07-22 20:51 | Inpatient (IN) | payer MEDICARE ==
[~2017-07-22] VITALS: Ht 172.7 cm; Wt 66.1 kg
[2017-07-22 23:18] LABS: BASOPHILS 0.6 % (0-2); EOSINOPHILS 2.1 % (0-7); HEMOGLOBIN 13.8 g/dL (12-16); IMMATURE GRANULOCYTES 0.3 % (0-5); LYMPHOCYTES 33.6 % (15-50); MCH 29.1 pg (26.0-34.0); MCHC 34.5 g/dL (31.0-37.0); MCV 84.2 fL (80.0-100.0); MEAN PLATELET VOLUME 10.9 fL (7.4-10.4); MONOCYTES 9.7 % (2-11); NEUTROPHILS 53.7 % (40-80); PLATELET COUNT 163 10x3/uL (130-400); RBC 4.75 10x6/uL (4.00-5.40); RDW 13.6 % (11.5-14.5); WBC 7.1 10x3/uL (4.8-10.8)
[2017-07-22 23:32] LABS: ALBUMIN 2.9 g/dL (3.4-5.0); ALKALINE PHOSPHATASE 118 U/L (46-116); ALT (SGPT) 12 U/L (10-68); BILIRUBIN - TOTAL 0.41 mg/dL (0.2-1.3); CALC OSMOLALITY 290 mosm/kg (275-300); CALCIUM 8.8 mg/dL (8.5-10.1); CARBON DIOXIDE 30.8 mmol/L (21.0-32.0); CHLORIDE - SERUM 103 mmol/L (98-107); POTASSIUM - SERUM 3.9 mmol/L (3.5-5.1); PROTEIN - SERUM 6.9 g/dL (6.4-8.2); SODIUM 139 mmol/L (136-145); UREA NITROGEN 29 mg/dL (7-18); eGFR NON AFRICAN AMERICAN 59 mL/min (90-120)
[2017-07-22 23:37] LABS: GLUCOSE 229 mg/dL (74-106)
[2017-07-22 23:41] LABS: CKMB 1.2 U/L (0.0-3.6); CREATINE KINASE 23 UL (21-215)
[2017-07-23 02:25] LABS: APPEARANCE CLEAR (CLEAR); COLOR YELLOW (YELLOW); NITRITE NEGATIVE (NEGATIVE); PROTEIN NEGATIVE (NEGATIVE); SPECIFIC GRAVITY 1.015 (1.005-1.020)
[2017-07-23 02:26] LABS: BACTERIA FEW /hpf (NONE SEEN); BILIRUBIN NEGATIVE (NEGATIVE); EPITHELIAL CELLS 0-5 /hpf (0-5); GLUCOSE 1000 mg/dL (NEGATIVE); KETONE NEGATIVE (NEGATIVE); RED CELLS - URINE 0-5 /hpf (0-5); UROBILINOGEN NORMAL (NORMAL); WHITE CELLS - URINE 0-5 /hpf (0-5)
[2017-07-23 04:25] LABS: CKMB 0.9 U/L (0.0-3.6); CREATINE KINASE 29 UL (21-215); TROPONIN-I 0.019 ng/mL (0.000-0.060)
[2017-07-23 10:17] LABS: CKMB 1.8 U/L (0.0-3.6); CREATINE KINASE 29 UL (21-215); TROPONIN-I < 0.017 ng/mL (0.000-0.060)
[2017-07-23 15:11] LABS: CREATINE KINASE 27 UL (21-215)
[2017-07-23 15:14] LABS: TROPONIN-I < 0.017 ng/mL (0.000-0.060)
[2017-07-23 17:24] LABS: CKMB 1.1 U/L (0.0-3.6); CREATINE KINASE 21 UL (21-215); TROPONIN-I 0.018 ng/mL (0.000-0.060)
[2017-07-23 17:42] VITALS: BP 148/79; BMI 19.5
[2017-07-23 18:21] VITALS: BP 153/86
[2017-07-23 20:35] LABS: CKMB 0.6 U/L (0.0-3.6); CREATINE KINASE 22 UL (21-215); TROPONIN-I 0.018 ng/mL (0.000-0.060)
[2017-07-23 20:54] VITALS: BP 155/75
[2017-07-24] VITALS (7 sets, daily range): BP systolic 83–194; BP diastolic 53–114; Ht 172.7 cm; Wt 66.1 kg
[2017-07-24 04:17] LABS: BASOPHILS 0.6 % (0-2); EOSINOPHILS 2.4 % (0-7); HEMATOCRIT 38.7 % (36.0-48.0); HEMOGLOBIN 13.2 g/dL (12-16); IMMATURE GRANULOCYTES 0.1 % (0-5); LYMPHOCYTES 31.1 % (15-50); MCH 28.9 pg (26.0-34.0); MCHC 34.1 g/dL (31.0-37.0); MCV 84.9 fL (80.0-100.0); MONOCYTES 12.2 % (2-11); NEUTROPHILS 53.6 % (40-80); PLATELET COUNT 152 10x3/uL (130-400); RBC 4.56 10x6/uL (4.00-5.40); RDW 13.5 % (11.5-14.5); WBC 6.8 10x3/uL (4.8-10.8)
[2017-07-24 04:56] LABS: ALBUMIN 2.6 g/dL (3.4-5.0); ALKALINE PHOSPHATASE 101 U/L (46-116); ALT (SGPT) 13 U/L (10-68); CALC OSMOLALITY 296 mosm/kg (275-300); CALCIUM 8.7 mg/dL (8.5-10.1); CARBON DIOXIDE 28.9 mmol/L (21.0-32.0); CHLORIDE - SERUM 105 mmol/L (98-107); CKMB 1.1 U/L (0.0-3.6); CREATINE KINASE 22 UL (21-215); GLUCOSE 201 mg/dL (74-106); POTASSIUM - SERUM 3.8 mmol/L (3.5-5.1); PROTEIN - SERUM 6.2 g/dL (6.4-8.2); SODIUM 142 mmol/L (136-145); TROPONIN-I < 0.017 ng/mL (0.000-0.060); UREA NITROGEN 34 mg/dL (7-18); eGFR NON AFRICAN AMERICAN 59 mL/min (90-120)
[2017-07-25] VITALS (10 sets, daily range): BP systolic 82–139; BP diastolic 42–77
[2017-07-25 05:30] LABS: BASOPHILS 0.7 % (0-2); EOSINOPHILS 1.9 % (0-7); HEMATOCRIT 36.6 % (36.0-48.0); HEMOGLOBIN 12.3 g/dL (12-16); IMMATURE GRANULOCYTES 0.2 % (0-5); LYMPHOCYTES 28.6 % (15-50); MCH 28.6 pg (26.0-34.0); MCHC 33.6 g/dL (31.0-37.0); MCV 85.1 fL (80.0-100.0); MEAN PLATELET VOLUME 10.8 fL (7.4-10.4); MONOCYTES 11.4 % (2-11); NEUTROPHILS 57.2 % (40-80); PLATELET COUNT 146 10x3/uL (130-400); RDW 13.4 % (11.5-14.5); WBC 5.9 10x3/uL (4.8-10.8)
[2017-07-25 05:49] LABS: ALBUMIN 2.6 g/dL (3.4-5.0); ANION GAP 9.2 mmol/L (8-16); BILIRUBIN - TOTAL 0.3 mg/dL (0.2-1.3); CALCIUM 8.7 mg/dL (8.5-10.1); CARBON DIOXIDE 28.2 mmol/L (21.0-32.0); CREATININE - SERUM 1.1 mg/dL (0.6-1.3); PROTEIN - SERUM 6.2 g/dL (6.4-8.2)
[2017-07-25 05:50] LABS: POTASSIUM - SERUM 4.4 mmol/L (3.5-5.1)
[2017-07-25] MEDS ORDERED: HUMALOG 30100 UNITS/ SC (14:56)
== END 2017-07-25 18:20 | DRG 312 ==
LOC: D.ER 20:51 → OBSVTIME 07-23 03:38 → D.M2 07-23 03:38 → D.EDHOLD 07-23 03:38 → D.M2 07-23 15:59
PROVIDERS: Family Medicine
DX: I95.1 Orthostatic hypotension (principal); S06.0X1A Concussion with loss of consciousness of 30 minutes or less, initial encounter; I69.354 Hemiplegia and hemiparesis following cerebral infarction affecting left non-dominant side; R07.89 Other chest pain; W19.XXXA Unspecified fall, initial encounter; Y92.002 Bathroom of unspecified non-institutional (private) residence as the place of occurrence of the external cause; I49.1 Atrial premature depolarization; E11.65 Type 2 diabetes mellitus with hyperglycemia; E11.43 Type 2 diabetes mellitus with diabetic autonomic (poly)neuropathy; I11.0 Hypertensive heart disease with heart failure; I50.9 Heart failure, unspecified; J44.9 Chronic obstructive pulmonary disease, unspecified; I25.10 Atherosclerotic heart disease of native coronary artery without angina pectoris; F41.9 Anxiety disorder, unspecified; F32.9 Major depressive disorder, single episode, unspecified; Z95.1 Presence of aortocoronary bypass graft; Z95.5 Presence of coronary angioplasty implant and graft; Z72.0 Tobacco use

== ENCOUNTER 2017-07-25 16:52 | Inpatient (IN) | payer MEDICARE ==
[~2017-07-25] VITALS: Ht 172.7 cm; Wt 58.1 kg
--- NOTE | ~2017-07-25 | RHP ---
PATIENT: YINKA JACKSON MEDICAL RECORD: [id number] ACCOUNT: [id number] LOCATION:[facility]1108 : 54 ADMISSION DATE: 07/25/17 REHABILITATION HISTORY AND PHYSICAL EXAMINATION POST ADMISSION PHYSICIAN EXAMINATION POST-ADMISSION PHYSICAL EXAMINATION AND HISTORY AND PHYSICAL DATE OF ADMISSION TO REHAB: 07/25/2017 ADMITTING DIAGNOSES: Major multiple traumas with noted brain injury and also multiple fractures. HISTORY OF PRESENT ILLNESS: The patient is a 67-year-old female patient admitted to rehab with a working diagnosis of major multiple traumas with brain or spinal cord injury. She had multiple rib fractures at 10th, 11th, and 12th. She is a 67-year-old female with a past medical history of diabetes, CVA with left-sided weakness, falls, coronary artery disease, status post coronary artery bypass grafting, COPD, hyperlipidemia, who presented status post syncopal spell while she was in the bathroom. She reports that she was starting to get ready to bed and got little dizzy and passed out. Stated that she hit her left chest wall on the bathtub and hit her head. She was admitted to the acute hospital with syncope, closed head injury, chest wall pain, and suspected orthostatic hypotension. States that she has had 2 syncopal episodes in the past few weeks prior to the recent event. She has been noted to be hypotensive with orthostatic hypotension and elevated BUN. Telemetry showing sinus rhythm with PACs, controlled rate, hyperglycemia, increased pain and nausea. She has got a past medical history of CVA. She had been in our acute rehab before with good outcome. She lives at home with her daughter, was moderately independent to independent with ADLs and moderately independent with mobility using a rolling walker. She is currently set up for mod assist for ADLs and mod assist for mobility. She plans to return home after her inpatient care and hopefully stay with her daughter and get back to her prior level of functioning or better. Comorbidities in this patient include multiple rib fractures, acute chest pain, syncope, acute closed head injury, hypotension, CHF, coronary artery disease, CVA, diabetes, and history of V-tach in the past. PAST MEDICAL HISTORY: Significant for CVA, TIA, cataracts, diabetes, hypertension, CHF, CT, stents and angioplasty, coronary artery bypass graft, syncope, coronary artery disease, hyperlipidemia, COPD, emphysema, pneumonia, chronic cough, depression, and anxiety. PAST SURGICAL HISTORY: Includes , left knee surgery, and coronary artery bypass grafting. ALLERGIES: KEFLEX, SULFA, CIPRO, BENADRYL, AND MORPHINE. CURRENT MEDICATIONS: Include DuoNeb updrafts four times a day p.r.n., Plavix 75 mg daily, aspirin 325 mg daily, Tylenol 500 mg every 6 hours p.r.n., MiraLax 17 grams daily, Nystatin powder topically t.i.d., Humalog low-resistance sliding scale, Mucinex 2 tabs b.i.d., Neurontin 800 mg t.i.d. HABITS: No current alcohol or tobacco use. FAMILY HISTORY: Noncontributory. HISTORY AND PHYSICAL [id number] YINKA JACKSON SOCIAL HISTORY: The patient hopes to return back home and get back to living with her daughter. REVIEW OF SYSTEMS: GENERAL: Does complain of weakness and fatigue. HEENT: Denies cold, cough, or congestion. CARDIOVASCULAR: Denies chest pain. PHYSICAL EXAMINATION: VITAL SIGNS: Stable, afebrile. GENERAL: An elderly female, who is in no acute distress. She is alert upon exam. HEENT: Normocephalic and atraumatic. Mucosa appears moist. TMs are shiny and mobile. NECK: Supple. LUNGS: Clear at this time. HEART: Regular rate and rhythm. ABDOMEN: Benign. EXTREMITIES: No clubbing, cyanosis or edema. NEUROLOGIC: She is slow to mentate, but seems mainly intact. CHEST WALL: She does have a noted tenderness especially on her site of her fractures. LABORATORY DATA: White count of 7.3, H&H of 11.9 and 35.7, platelet count is 137. Her sodium is 142, potassium 3.9, BUN and creatinine of 27 and 0.9, blood sugar is noted to be 224. ASSESSMENT: This 67-year-old female admitted with multiple trauma secondary to a fall and history of CVA. The patient has potential to make improvement. We will institute the following multidisciplinary therapies including, but not limited to physical, occupational, respiratory, speech, nutritional services, prosthetics and orthotics. Given her complex medical condition and risks for more complications, rehabilitation services cannot be provided at a low level of care such as a fdc facility. PLAN: 1. Admit to [facility] for intensive inpatient therapy to include the following disciplines: A. Physical therapy to improve gait, all transfer skills and bed mobility to a modified independent level. B. Occupational therapy to improve activities of daily living to a modified independent level. C. Case management to assist with discharge planning and placement options. D. Nutrition to assist with nutritional needs. E. Rehabilitation nursing to assist in monitoring the patient's underlying medical conditions and to assist with any type of bowel or bladder management. 2. The patient's current medications will be continued. 3. The patient will be placed on standard fall precautions. 4. The patient's estimated length of stay is approximately 7-10 days. 5. We will watch her for any mental status changes, hopefully get her up and going again. We also watch her for any signs of pneumonia secondary to her rib fractures and I will followup on Friday a.m. or earlier if necessary. TRANSINT:[id number] Voice Confirmation ID: [id number] DOCUMENT ID: [id number] HISTORY AND PHYSICAL [id number] YINKA JACKSON notes whether there has been none or any medical/functional change since admission: - No change since preadmission screen. ISRAEL attests patient continues to be appropriate for IRF: - Contiues to be appropriate. ANDREY FRANCISCO MD at 1012 CC: [id number] DICTATION DATE: 07/26/17 0832 SOUND INSTALLATION WORKER: 07/26/17 0930 DIS IN 08/01/17 [address] [place] [address]
[2017-07-25 20:39] VITALS: BP 115/59
[2017-07-25 22:23] VITALS: BP 115/59; BMI 19.5
[2017-07-26 07:50] LABS: BASOPHILS 0.3 % (0-2); EOSINOPHILS 1.6 % (0-7); HEMATOCRIT 35.7 % (36.0-48.0); HEMOGLOBIN 11.9 g/dL (12-16); IMMATURE GRANULOCYTES 0.1 % (0-5); LYMPHOCYTES 25.1 % (15-50); MCH 28.7 pg (26.0-34.0); MCHC 33.3 g/dL (31.0-37.0); MEAN PLATELET VOLUME 11.1 fL (7.4-10.4); MONOCYTES 10.9 % (2-11); PLATELET COUNT 137 10x3/uL (130-400); RBC 4.15 10x6/uL (4.00-5.40); RDW 13.7 % (11.5-14.5); WBC 7.3 10x3/uL (4.8-10.8)
[2017-07-26 07:59] LABS: ANION GAP 7.6 mmol/L (8-16); CALCIUM 8.5 mg/dL (8.5-10.1); CARBON DIOXIDE 29.3 mmol/L (21.0-32.0); CREATININE - SERUM 0.9 mg/dL (0.6-1.3); POTASSIUM - SERUM 3.9 mmol/L (3.5-5.1)
[2017-07-26 08:38] VITALS: BP 104/53
[2017-07-26 09:51] VITALS: Ht 172.7 cm; Wt 58.1 kg
[2017-07-26 20:54] VITALS: BP 132/71
[2017-07-27 09:09] VITALS: BP 124/78
[2017-07-27 20:00] VITALS: BP 135/74
[2017-07-28 06:57] LABS: ANION GAP 11.6 mmol/L (8-16); CALCIUM 8.2 mg/dL (8.5-10.1); CARBON DIOXIDE 28.6 mmol/L (21.0-32.0); CREATININE - SERUM 0.9 mg/dL (0.6-1.3); POTASSIUM - SERUM 4.2 mmol/L (3.5-5.1)
[2017-07-28 07:02] LABS: BASOPHILS 0.6 % (0-2); EOSINOPHILS 1.3 % (0-7); HEMATOCRIT 35.5 % (36.0-48.0); HEMOGLOBIN 11.6 g/dL (12-16); IMMATURE GRANULOCYTES 0.7 % (0-5); LYMPHOCYTES 25.1 % (15-50); MCH 28.4 pg (26.0-34.0); MCHC 32.7 g/dL (31.0-37.0); MEAN PLATELET VOLUME 11.8 fL (7.4-10.4); MONOCYTES 11.3 % (2-11); PLATELET COUNT 158 10x3/uL (130-400); RBC 4.08 10x6/uL (4.00-5.40)
[2017-07-28 07:03] LABS: WBC 5.4 10x3/uL (4.8-10.8)
[2017-07-28 08:00] VITALS: BP 116/59
[2017-07-28 19:54] VITALS: BP 134/59
[2017-07-29 08:00] VITALS: BP 116/77
[2017-07-29 19:48] VITALS: BP 120/72
[2017-07-30 06:46] LABS: BASOPHILS 0.6 % (0-2); EOSINOPHILS 2.3 % (0-7); HEMOGLOBIN 11.6 g/dL (12-16); IMMATURE GRANULOCYTES 0.6 % (0-5); LYMPHOCYTES 30.9 % (15-50); MCH 28.4 pg (26.0-34.0); MCHC 32.2 g/dL (31.0-37.0); MEAN PLATELET VOLUME 11.8 fL (7.4-10.4); MONOCYTES 13.7 % (2-11); NEUTROPHILS 51.9 % (40-80); PLATELET COUNT 159 10x3/uL (130-400); RBC 4.09 10x6/uL (4.00-5.40); RDW 14.2 % (11.5-14.5); WBC 5.3 10x3/uL (4.8-10.8)
[2017-07-30 07:01] LABS: CALC OSMOLALITY 296 mosm/kg (275-300); CALCIUM 8.5 mg/dL (8.5-10.1); CARBON DIOXIDE 29.7 mmol/L (21.0-32.0); CHLORIDE - SERUM 109 mmol/L (98-107); CREATININE - SERUM 0.8 mg/dL (0.6-1.3); POTASSIUM - SERUM 4.8 mmol/L (3.5-5.1); SODIUM 144 mmol/L (136-145); UREA NITROGEN 29 mg/dL (7-18); eGFR NON AFRICAN AMERICAN 76 mL/min (90-120)
[2017-07-30 07:02] LABS: GLUCOSE 169 mg/dL (74-106)
[2017-07-30 08:00] VITALS: BP 112/70
[2017-07-30 20:06] VITALS: BP 140/80
[2017-07-31 08:00] VITALS: BP 110/61
[2017-07-31 20:04] VITALS: BP 124/68
[2017-08-01 06:35] LABS: BASOPHILS 0.8 % (0-2); HEMATOCRIT 34.3 % (36.0-48.0); HEMOGLOBIN 11.2 g/dL (12-16); IMMATURE GRANULOCYTES 0.3 % (0-5); LYMPHOCYTES 30.6 % (15-50); MCH 28.7 pg (26.0-34.0); MCHC 32.7 g/dL (31.0-37.0); MCV 87.9 fL (80.0-100.0); MEAN PLATELET VOLUME 11.2 fL (7.4-10.4); MONOCYTES 15.2 % (2-11); NEUTROPHILS 51.1 % (40-80); PLATELET COUNT 159 10x3/uL (130-400); RDW 14.2 % (11.5-14.5)
[2017-08-01 07:03] LABS: CALC OSMOLALITY 291 mosm/kg (275-300); CALCIUM 8.1 mg/dL (8.5-10.1); CARBON DIOXIDE 25.9 mmol/L (21.0-32.0); CHLORIDE - SERUM 108 mmol/L (98-107); CREATININE - SERUM 0.8 mg/dL (0.6-1.3); GLUCOSE 97 mg/dL (74-106); SODIUM 144 mmol/L (136-145); UREA NITROGEN 27 mg/dL (7-18); eGFR NON AFRICAN AMERICAN 76 mL/min (90-120)
[2017-08-01 08:00] VITALS: BP 115/64
[2017-08-01] MEDS ORDERED: LEXAPRO10 MG PO (08:04)
[2017-08-01] MEDS ORDERED: GLIMEPIRIDE2 MG PO (08:04)
== END 2017-08-01 15:03 | disposition home health service (06) | DRG 85 ==
LOC: D.REHAB 16:52
PROVIDERS: Emergency Medicine
DX: S06.9X0A Unspecified intracranial injury without loss of consciousness, initial encounter (principal); R53.2 Functional quadriplegia; J18.1 Lobar pneumonia, unspecified organism; S22.49XA Multiple fractures of ribs, unspecified side, initial encounter for closed fracture; I69.354 Hemiplegia and hemiparesis following cerebral infarction affecting left non-dominant side; J44.1 Chronic obstructive pulmonary disease with (acute) exacerbation; J44.0 Chronic obstructive pulmonary disease with (acute) lower respiratory infection; W19.XXXA Unspecified fall, initial encounter; R55 Syncope and collapse; R07.9 Chest pain, unspecified; I95.9 Hypotension, unspecified; I11.0 Hypertensive heart disease with heart failure; I50.9 Heart failure, unspecified; I25.10 Atherosclerotic heart disease of native coronary artery without angina pectoris; E11.65 Type 2 diabetes mellitus with hyperglycemia; F41.8 Other specified anxiety disorders

== ENCOUNTER 2017-08-09 13:57 | Inpatient (IN) | payer MEDICARE ==
[~2017-08-09] VITALS: Ht 172.7 cm; Wt 68.2 kg
--- NOTE | ~2017-08-09 | OP ---
PATIENT NAME: YINKA JACKSON MEDICAL RECORD: [id number] :54 LOCATION:D.M2 D.2126 ADMISSION DATE:08/09/17 SURGEON: ARSENIO BENITEZ MD DATE OF OPERATION: 08/12/2017 PROCEDURES: 1. PTCA, LAD diagonal. 2. Selective coronary angiography. INDICATION: Angina and coronary artery disease. PROCEDURE IN DETAIL: After informed consent was obtained and after a detailed description of the risks, benefits as well as alternative therapies, the patient elected to proceed with angiogram and angioplasty. The left femoral area was prepped and draped in normal sterile fashion. Left femoral artery was cannulated via modified Seldinger technique with placement of 6-Czech sheath. All catheters exchanged through this sheath. FINDINGS: The left anterior descending diagonal has a long area of 90% to 95% stenosis. This is a small vessel, heavily calcified. We ballooned this with a 1.5 and 2.0 balloon and no other piece of equipment would go through this due to the tortuosity and the calcification; however, the result was excellent with virtually 0% residual stenosis and no dissection. OVERALL IMPRESSION: Successful percutaneous transluminal coronary angioplasty stent of the left anterior descending diagonal going from 90+ percent initial stenosis to 0% residual stenosis. TRANSINT:[id number] Voice Confirmation ID: [id number] DOCUMENT ID: [id number] ARSENIO BENITEZ MD at 1630 CC: [id number] DICTATION DATE: 08/12/17 0836 THERAPEUTIC PROGRAM WORKER: 08/12/17 1203 ADM IN [id number] [place] [address]
--- NOTE | ~2017-08-09 | HEMODYNAMI ---
PATIENT:YINKA JACKSON MEDICAL RECORD: [id number] : 54 [facility] [id number] ADMISSION DATE: 08/09/17 Generatedon:08/12/20178:36 Patient name: YINKA JACKSON Patient #: [id number] : 1950 Date of study: 08/12/2017 Page: Of Hemodynamic Procedure Report Patient Data Patient Demographics Procedure consent was obtained First Name: YINKA Gender: Female Last Name: RENETTA : 1950 Middle Initial: A Age: 67 year(s) Patient #: [id number] Race: SSN: [id number] Additional ID: [id number] Contact details Address: [address] [address] State: [place] City: [place] Zip code: [address] Past Medical History Allergies Allergen Reaction Date Comments Reported Other allergy 07/29/2016 sulfa, cipro, keflex Other allergy 08/11/2017 CEPHALEXIN MONOHYDRATE, SULFA, CIPROFLOXACIN, DIPHENYDRAMINE, MORPHINE, CIPROFLOXACIN HCI Admission Admission Data Admission Date: 08/09/2017 Admission Time: 15:47 Room #: D.2126 Lab Results Lab Result Date: 08/11/2017 Lab Result Time: 0:00 Biochemistry Name Units Result Min Max BUN mg/dl 24 --(----)-* 7 18 Creatinine mg/dl 1 --(--*-)-- 0.6 1.3 CBC Name Units Result Min Max Hemoglobin g/dl 11.9 *-(----)-- 13.5 17.5 Procedure Procedure Types Cath Procedure PCI Procedure PTCA PTCA Initial Procedure Description Procedure Date Procedure Date: 08/12/2017 Procedure Start Time: 8:22 Procedure End Time: 8:35 Procedure Staff Name Function Marcus Watson MD Performing Physician Pablito Grier RT Monitor Jessenia Del Angel RT Scrub Antonio Bean RN Nurse Procedure Data Cath Procedure Fluoroscopy Diagnostic fluoroscopy Total fluoroscopy Time: 5.5 time: 5.5 min min Diagnostic fluoroscopy Total fluoroscopy dose: 396 dose: 396 mGy mGy Contrast Material Contrast Material Type Amount (ml) Isovue 300 61 Entry Location Entry Primary Successful Side Size Upsize Upsize Entry Closure Succes sful Closure Location (Fr) 1 (Fr) 2 (Fr) Remarks Device Remarks Femoral Left 6 Fr Exoseal artery Short Estimated blood loss: 10 ml Procedure Complications No complications Procedure Medications Medication Administration Route Dosage Zofran I.V. 4 mg Oxygen etCO2 Nasal cannula 2 l/min Heparin Flush Bag added to field 2 bags (1000units/500ml NS) 0.9% NaCl I.V. 100 ml/hr Fentanyl I.V. 50 mcg Versed I.V. 1 mg Fentanyl I.V. 50 mcg Versed I.V. 1 mg Heparin Bolus I.V. 4000 units Hemodynamics Rest HGB: 11.9 (g/dl) Heart Rate: 107 (bpm) Snapshots Pre Cath Intra NCS Post Cath Vital Signs Time Heart Resp SPO2 etCO2 NIBP (mmHg) Rhythm Pain Sedation Rate (ipm) (%) (mmHg) Status Level (bpm) 8:12:25 103 16 96 23.3 147/89(116) NSR 0 (11) 10(A) , No pain 8:17:04 90 18 94 33.1 136/79(117) NSR 0 (11) 10(A) , No pain 8:21:40 97 20 93 0 132/83(105) NSR 0 (11) 9(A) , No pain 8:26:17 92 18 95 0 112/76(99) NSR 0 (11) 9(A) , No pain 8:30:50 128 19 95 46.6 108/70(96) NSR 0 (11) 9(A) , No pain 8:32:59 106 19 95 21 138/85(109) NSR 0 (11) 9(A) , No pain Medications Time Medication Route Dose Verified Delivered Reason Notes Effectiveness by by 8:12:42 Zofran I.V. 4 mg Marcus El for nausea Walter Krishnan RN 8:12:49 Oxygen etCO2 2 Marcus El Per physician Nasal l/min Walter Krishnan RN cannula 8:13:20 Heparin Flush added 2 Marcus El used for Bag to bags Walter Krishnan RN procedure (1000units/500ml field NS) 8:13:28 0.9% NaCl I.V. 100 Marcus El Per physician ml/hr Walter Krishnan RN 8:19:24 Fentanyl I.V. 50 Marcus El for sedation mcg Walter Krishnan RN 8:19:31 Versed I.V. 1 mg Marcus El for sedation Walter Krishnan RN 8:22:00 Fentanyl I.V. 50 Marcus El for sedation mcg Walter Krishnan RN 8:22:05 Versed I.V. 1 mg Marcus El for sedation Walter Krishnan RN 8:22:49 Heparin Bolus I.V. 4000 Marcus El for units Walter Krishnan RN anticoagulation Procedure Log Time Note 7:43:32 Time tracking: Regular hours (M-F 7:00 - 5:00) 7:43:35 Plan of Care:Hemodynamics will remain stable., Cardiac rhythm will remain stable., Comfort level will be maintained., Respiratory function will remain adequate., Patient/ family verbilizes understanding of procedure., Procedure tolerated without complication., Recovers from procedure without complications.. 7:43:36 Signed procedure consent form obtained from patient. 7:43:46 H&P Date Dictated: 08/11/2017 Within 30 days and on chart.. 7:47:43 Pablito JETER(R) sent for patient. Start room use. 8:02:16 Patient received from PCU to CCL 1 Alert and oriented. Tansferred to table in Supine position. 8:02:17 Warm blankets applied, and george hugger turned on for patient comfort. 8:02:17 Correct patient and procedure confirmed by team. 8:02:18 ECG and BP/O2 sat monitors applied to patient. 8:11:36 Vital chart was started 8:12:42 Zofran 4 mg I.V. was administered by Nikko Krishnan RN; for nausea; 8:12:49 Oxygen 2 l/min etCO2 Nasal cannula was administered by Nikko Krishnan RN; Per physician; 8:13:20 Heparin Flush Bag (1000units/500ml NS) 2 bags added to field was administered by Nikko Krishnan RN; used for procedure; 8:13:28 0.9% NaCl 100 ml/hr I.V. was administered by Nikko Krishnan RN; Per physician; 8:15:37 Baseline sample Acquired. 8:15:40 Rhythm: sinus rhythm 8:15:41 Full Disclosure recording started 8:15:50 Pre-procedure instructions explained to patient. 8:15:50 Pre-op teaching completed and patient verbalized understanding. 8:16:45 Family in patients room. 8:16:47 Patient NPO since Midnight. 8:16:48 Is the patient allergic to Iodine/contrast media? No. 8:16:50 Is patient on blood thinner?Yes 8:16:53 ACC The patient was administered the following blood thiners within the last 24 hours: ACCPlavix 8:16:56 Patient diabetic? Yes. 8:16:57 If diabetic: On Metformin? No 8:17:00 Previous problem with sedation/anesthesia? No ? 8:17:02 Snore? Yes 8:17:03 Sleep apnea? No 8:17:04 Deviated septum? No 8:17:05 Opens mouth fully? Yes 8:17:07 Sticks out tongue? Yes 8:17:17 Airway obstruction? Yes COPD 8:17:31 Dentures? No ? 8:17:40 Pre procedure: left dorsailis pedis pulse 1+ Palpable, but thready & weak; easily obliterated 8:17:42 Patient pain scale 0/10 ?. 8:17:47 IV patent on arrival in right forearm with 0.9% NaCl at KVO. 8:17:49 Lab results completed and on chart. 8:17:53 Left groin area was prepped with chlora-prep and draped in sterile fashion 8:17:55 Alarms reviewed by R. N. 8:17:55 Sharps counted by scrub and verified by R.N. 8:17:56 --------ALL STOP TIME OUT------ 8:17:56 Final Timeout: patient, procedure, and site verified with staff and physician. All members of the team are in agreement. 8:18:02 Left groin site verified by team. 8:18:05 Physical assessment completed. ASA score P 2 - A patient with mild systemic disease as per Marcus Watson MD. 8:18:08 Sedation plan: IV Moderate Sedation Medication:Versed, Fentanyl 8:19:24 Fentanyl 50 mcg I.V. was administered by Nikko Krishnan RN; for sedation; 8:19:31 Versed 1 mg I.V. was administered by Nikko Krishnan RN; for sedation; 8:21:22 Use device set Radial Dx or PCI 8:21:24 Use device set TAUTH PCI 8:21:28 Tegaderm 4 x 4 (1626W) opened to sterile field. 8:21:29 ACIST Hand Control (40347) opened to sterile field. 8:21:29 ACIST Manifold (75864) opened to sterile field. 8:21:31 ACIST Syringe (86580) opened to sterile field. 8:21:31 Medline Cath Pack ([id number]) opened to sterile field. 8:21:32 Bag Decanter (2002) opened to sterile field. 8:21:34 DIAGNOSTIC WIRE .035 260cm J wire (889452) opened to sterile field. 8:21:37 INFLATOR Merit BasixCompak (LH8048) opened to sterile field. 8:21:45 CHOICE PT Extra Support 182cm wire ([id number]) opened to sterile field. 8:21:47 GUIDE 6FR XBLAD 4.0 catheter ([id number]) opened to sterile field. 8:21:51 SHEATH Prelude 6Fr 0.035 (EPS-0S-58-035) opened to sterile field. 8:21:59 Procedure started. 8:22:00 Fentanyl 50 mcg I.V. was administered by Nikko Krishnan RN; for sedation; 8:22:05 Versed 1 mg I.V. was administered by Nikko Krishnan RN; for sedation; 8:22:07 Local anesthetic to left femerol artery with Lidocaine 2% by Marcus Watson MD.INITIAL ACCESS ONLY 8:22:26 A 6 Fr Short sheath was inserted into the Left Femoral artery 8:22:39 6 Fr XBLAD 4 guide catheter was inserted over the wire 8:22:49 Heparin Bolus 4000 units I.V. was administered by Nikko Krishnan RN; for anticoagulation; 8:24:48 Choice PT XS wire advanced. 8:25:37 Wire advanced across lesion. 8:26:24 Inflate balloon Inflation number: 1 A EUPHORA 1.5 x 20 Balloon ([id number]) was prepped and advanced across the Mid LAD, then inflated to 21 ELLA for 0:10 (min:sec). 8:26:58 Multiple inflations made at 21 atms. 8:27:57 Balloon removed over the wire. 8:28:59 Inflate balloon Inflation number: 2 A EUPHORA 2.0 x 20 Balloon ([id number]) was prepped and advanced across the Mid LAD, then inflated to 17 ELLA for 0:10 (min:sec). 8:29:16 Multiple inflations made at 21 atms. 8:30:43 Balloon removed over the wire. 8:30:44 Wire removed. 8:30:44 Guide catheter removed. 8:30:53 EXOSEAL 6Fr (EX600) opened to sterile field. 8:31:16 Sheath removed intact; hemostasis achieved with Exoseal to the Left Femoral artery. 8:31:21 Procedure ended.(Physican Out) 8:31:27 Fluoroscopy time 05.50 minutes. 8:31:30 Fluoroscopy dose: 396 mGy 8:31:30 Flurop Dose total: 396 8:31:35 Contrast amount:Isovue 300 61ml. 8:31:37 Sharps counted by scrub and verified by R.N. 8:31:38 Insertion/operative site no bleeding no hematoma. 8:31:42 Post-op/insertion site Left Femoral artery dressed using a 4 x 4 and Tegaderm. 8:31:43 Post Procedure Pulses reassessed and unchanged 8:31:45 Post-procedure physical assessment completed. ASA score P 2 - A patient with mild systemic disease as per Marcus Watson MD. 8:31:49 Post procedure rhythm: unchanged. 8:31:51 Estimated blood loss: 10 ml 8:31:53 Post procedure instruction explained to patient.Patient verbalizes understanding. 8:31:53 Patient needs reinforcement of post procedure teaching. 8:32:03 Procedure type changed to Cath procedure, PCI procedure, PTCA, PTCA Initial 8:32:05 Procedure and supply charges have been captured, reviewed, submitted and are correct. 8:32:08 Procedure Complication : No complications 8:35:16 Vital chart was stopped 8:35:17 See physician's report for complete and final results. 8:35:19 Report given to PCU. 8:35:22 Patient transfered to PCU with Bed. 8:35:24 Procedure ended. 8:35:24 Full Disclosure recording stopped 8:35:42 End room use (Document Last) Intervention Summary Intervention Notes Time ActionType Lesion and Equipment Action# Pressure Duration Attributes Used 8:26:24 Inflate Mid LAD EUPHORA 1 21 00:10 balloon 1.5 x 20 Balloon ([id number]) 8:28:59 Inflate Mid LAD EUPHORA 2 17 00:10 balloon 2.0 x 20 Balloon ([id number]) Device Usage Item Name Manufacture Quantity Catalog Number Hospital Part Current Minimal Lot# / Charge Number Stock Stock Serial# Code Tegaderm 4 x 4 3M 1 [id number] [id number] [id number] 5 ([id number]) ACIST Hand Acist 1 82741 833470 218474 992002 5 Control (15381) [employer] Inc ACIST Manifold Acist 1 36660 599348 272983 011182 5 (39526) [employer] ACIST Syringe Acist 1 51368 816309 967418 106103 20 (60150) Medical Systems Inc Medline Cath Cardinal 1 [id number] 115781 14754 594790 5 Trusted Insight ([id number]) Bag Decanter Microtek 1 2002S 503389 80229 056142 5 (2001S) Medical Inc. DIAGNOSTIC WIRE St Saleem 1 200821 138475 465406 943831 30 .035 260cm J wire (688086) INFLATOR Merit Merit 1 VT7206 103111 783691 111599 15 Prova SystemsCastleview HospitalTinfoil Security Medical ([id number]) CHOICE PT Extra [place] 1 [id number] 333781 082579 468751 5 Support 182cm Scientific wire ([id number]) GUIDE 6FR XBLAD Cardinal 1 [id number] 225343 699083 525562 3 4.0 IntervalZero ([id number]) SHEATH Prelude Merit 1 [id number]-1D-[id number] 381743 2540585 243695 5 6Fr 0.035 Medical (DVE-1G-69-035) EUPHORA 1.5 x Medtronic 1 [id number] 956126 740293 067242 5 [id number] 20 Balloon ([id number]) EUPHORA 2.0 x Medtronic 1 [id number] 323815 813801 554415 5 [id number] 20 Balloon ([id number]) EXOSEAL 6Fr Cardinal 1 EX600 575634 153723 685163 10 (EX600) Health Signature Audit [place] Stage Time Signature Unsigned Intra-Procedure 08/12/2017 Pablito Grier 8:35:57 AM RT(R) Signatures Monitor : Pablito Grier RT Signature : Date : Time : [address] [place] [address]
--- NOTE | ~2017-08-09 | CN ---
PATIENT NAME:YINKA HOLLOWAY MEDICAL RECORD: [id number] : 54 LOCATION:D. D.2126 ADMIT DATE: 08/09/17 ACCOUNT: [id number] CONSULTING PHYSICIAN: ARSENIO BENITEZ MD REFERRING PHYSICIAN: EVA WOMACK MD DATE OF CONSULTATION: 08/10/2017 CARDIOLOGY CONSULTATION DIAGNOSES: 1. Non-Q-wave myocardial infarction. 2. Coronary artery disease. 3. Previous percutaneous transluminal coronary angioplasty stent. 4. Hypertension. 5. Hyperlipidemia. 6. Diabetes. HISTORY OF PRESENT ILLNESS: Ms. Holloway presents with 2 days of chest discomfort. She was attributing this to a cough and congestion that she had in her chest; however, the chest pain worsened. Her troponin is positive for a non-Q-wave myocardial infarction. She does have a history of coronary artery disease. Last cardiac intervention was in 2013. PHYSICAL EXAMINATION: GENERAL APPEARANCE: Well-nourished, well-developed, appears stated age. Level of distress, comfortable. PSYCHIATRIC: Mental status, alert, normal affect. Orientation, oriented to time, place and person. EYES: Lids and conjunctiva, noninjected. No discharge, no pallor. ENT: Lips, teeth, gums, normal dentition. Oropharynx, no cyanosis, no pallor. NECK: Carotid arteries, bilateral normal upstroke, no bruits, no thrills. JUGULAR VEINS: No jugular venous pressure or distention. CERVICAL LYMPH NODES: Nontender, nonenlarged. THYROID: Not enlarged. Nontender. No nodules. LUNGS: Respiratory effort, unlabored. CHEST: Normal curvature. No thoracic deformity. No chest wall tenderness. Percussion, resonant. Auscultation, clear. No wheezes, no rales, no rhonchi. CARDIOVASCULAR: Precordial exam, nondisplaced. No heaves or pericardial thrills. Rate and rhythm, regular. Heart sounds, normal S1, normal S2. No S3, no gallop, no rub. Systolic murmur, not heard. Diastolic murmur, not heard. EXTREMITIES: No cyanosis, no edema. Peripheral pulses, full and equal in all extremities, except as noted. No bruits appreciated. ABDOMEN: Soft, nondistended. Normal aorta. No bruit. Nontender. No masses. Liver, nontender, no hepatomegaly. Spleen, nontender, no splenomegaly. MUSCULOSKELETAL: No joint tenderness. No joint swelling. No erythema. NEUROLOGICAL: Normal gait, normal strength, normal tone. SKIN: Warm and dry. REVIEW OF SYSTEMS: The patient reports easy bruising but reports no swollen glands. The patient reports no fever, no night sweats, no significant weight gain, no significant weight loss. No significant exercise tolerance. The patient reports no dry eyes, no irritation, no vision change. Patient reports no difficulty hearing and no ear pain. Patient reports no frequent nose bleeds or nose and sinus problems. Patient reports on arm pain on exertion. No shortness of breath while lying down. No history of heart murmur. Patient CONSULT REPORT [id number] YINKA HOLLOWAY reports no cough, no wheezing or coughing up blood. Patient reports no abdominal pain, no vomiting. Normal appetite. No diarrhea and not vomiting blood. No nausea and no constipation. Patient reports no incontinence. No difficulty urinating. No hematuria. No increased frequency. Patient reports no muscle aches. No weakness, no arthralgias, no back pain. No swelling of the extremities. Patient reports no abnormal mole, no jaundice, no rashes. Reports no loss of consciousness. No weakness and no numbness. No seizures, dizziness, or headaches. The patient reports no depression, no sleep disturbance, feeling safe in a relationship and no alcohol abuse. Patient reports on fatigue. Reports no runny nose or sinus pressure. No itching, no hives, and no frequent sneezing. OVERALL IMPRESSION: Non-Q-wave myocardial infarction with continued chest pain. We will proceed with coronary angiography. Further care depends upon the findings of the angiography. TRANSINT:[id number] Voice Confirmation ID: [id number] DOCUMENT ID: [id number] ARSENIO BENITEZ MD at 1630 CC: [id number] DICTATION DATE: 08/10/17 1052 REDYE HAND: 08/10/17 1128 [facility] [place] [id number] [place] [address]
--- NOTE | ~2017-08-09 | EC ---
PATIENT:YINKA JACKSON DATE OF SERVICE: 08/09/17 SEX: F MEDICAL RECORD: [id number] DATE OF : 54 LOCATION:D.M2 D.212 AGE OF PATIENT: 67 ADMISSION DATE: 08/09/17 REFERRING PHYSICIAN: INTERPRETING PHYSICIAN: ARSENIO WATSON MD ECHOCARDIOGRAM REPORT ECHO CHARGES 5 ECHO LIMITED Date: 08/10 1 DOPPLER ECHO COLOR FLOW 2 DOPPLER ECHO PULSE CLINICAL DIAGNOSIS: CHF ECHOCARDIOGRAPHIC MEASUREMENTS (adult normal given) AC root (d.<3.7cm) 0 cm LV Septum d (<1.2 cm> 0 cm Valve Excursion 0 cm LV Septum (systole) 0 cm Left Atria (s.<4.0cm> 0 cm LVPW d(<1.2cm) 0 cm RV (d.<2.3cm) 0 cm LVPW (sytole) 0 cm LV diastole(<5.6CM) 0 cm MV E-F(>70mm/sec) 0 cm LV systole 0 cm LVOT Diameter 0 cm MV exc.(>10mm) 0 cm Est.ejection fraction (50-75%) 0 % DOPPLER: LVIT 0 cm/sec A 0 cm/sec E 0 cm/sec LA 0 cm/sec RVSP 39.0 mmHg LVOT 0 cm/sec AOP1/2T 0 m/s Asc. Ao 0 cm/sec RVOT 0 cm/sec RA 0 cm/sec PA 0 cm/sec AV Gradient Peak 0 mmHg AV Mean 0 mmHg AV Area 0 cm MV Gradient Peak 0 mmHg MV Mean 0 mmHg MV Area 0 cm COMMENTS: LIMITED STUDY (2-D,COLOR,DOPPLER) COMPLETE ECHO DONE ON 07/24/17 [employer] Machine Operator: Nigel DAVISDSOE Clinical Product Specialist: 1 Dr. Watson TAPE# PACS Pericardial Effusion N DATE OF SERVICE: 08/11/2017 Echocardiogram FINDINGS: 1. Left ventricular chamber size is mildly dilated. Left ventricular systolic function is markedly reduced, overall ejection fraction 20% to 25%. 2. Left atrium, right atrium, and right ventricular chamber sizes are dilated giving 4-chamber dilatation. 3. Valvular structures have normal structure and motion. ECHOCARDIOGRAM REPORT [id number] YINKA JACKSON 4. Doppler interrogation reveals moderate mitral regurgitation, moderate tricuspid regurgitation, no other valvular insufficiency or stenosis. Pulmonary systolic pressure is estimated at 39 mmHg. 5. No evidence of pericardial effusion or left ventricular thrombus. TRANSINT:[id number] Voice Confirmation ID: [id number] DOCUMENT ID: [id number] ARSENIO WATSON MD at 1630 CC: [id number] DICTATION DATE: 08/11/17 1149 SEWING TRIMMER: 08/11/17 1214 ADM IN [facility] [address] [place] [address]
--- NOTE | ~2017-08-09 | OP ---
PATIENT NAME: YINKA JACKSON MEDICAL RECORD: [id number] :54 LOCATION:D.M2 D.2126 ADMISSION DATE:08/09/17 SURGEON: ARSENIO BENITEZ MD DATE OF OPERATION: 08/11/2017 PROCEDURES: 1. PTCA stent RCA. 2. PTCA stent RCA PLV. 3. Left heart catheterization. 4. Selective coronary angiography. 5. Vein graft angiography. 6. ORO angiography. 7. Left ventriculogram. 8. Intravascular ultrasound. INDICATION: Angina and coronary artery disease. PROCEDURE IN DETAIL: After informed consent was obtained and after a detailed description of risks, benefits as well as alternative therapies, the patient elected to proceed with angiogram and angioplasty. The right femoral area was prepped and draped in normal sterile fashion. Right femoral artery was cannulated via modified Seldinger technique with placement of 6-Korean sheath. All catheters exchanged through this sheath. FINDINGS: Left ventriculogram was performed in standard 30-degree COBOS view, reveals global hypokinesis throughout all segments. Overall ejection fraction is 20%. SELECTIVE CORONARY ANGIOGRAPHY: 1. Left main is with no significant angiographic disease. 2. Left anterior descending is totally occluded in mid vessel. The LAD diagonal has 90+ percent stenosis throughout the proximal portion. 3. The left circumflex comes off the right coronary artery distended. Stents are widely patent with no significant restenosis. No disease elsewise. 4. The right coronary artery has 80% stenosis proximally confirmed by intravascular ultrasound. As well, the PLV has a 90% stenosis. 5. The vein graft to the right coronary artery feeds the right PDA. The vein graft is patent. The PDA is small and diffusely diseased, but patent. PTCA STENT OF THE RCA AND PLV: The RCA was addressed with a 4.5 x 18 and 4.5 x 12 mm Nasim stents. The PLV with a 2.5 x 15 mm [place] stent. Result was 0% residual stenosis. OVERALL IMPRESSION: Successful PTCA stent of the RCA and PLV going from 90% initial stenosis to 0% residual stenosis. PLAN: PTCA stent of the LAD diagonal in the near future. TRANSINT:[id number] Voice Confirmation ID: [id number] DOCUMENT ID: [id number] OPERATIVE REPORT [id number] YINKA JACKSON ARSENIO BENITEZ MD at 1630 CC: [id number] DICTATION DATE: 08/11/17 0935 OPHTHALMIC NURSE: 08/11/17 1130 ADM IN [facility] [address] [place] [id number]
--- NOTE | ~2017-08-09 | HEMODYNAMI ---
PATIENT:YINKA JACKSON MEDICAL RECORD: [id number] : 54 [id number] ADMISSION DATE: 08/09/17 Generatedon:08/11/20179:32 Patient name: YINKA JACKSON Patient #: [id number] : 1950 Date of study: 08/11/2017 Page: Of Hemodynamic Procedure Report Patient Data Patient Demographics Procedure consent was obtained First Name: YINKA Gender: Female Last Name: RENETTA : 1950 Middle Initial: A Age: 67 year(s) Patient #: [id number] Race: SSN: [id number] Additional ID: [id number] Contact details Address: [place] [address] State: [place] City: [place] Zip code: [address] Past Medical History Allergies Allergen Reaction Date Comments Reported Other allergy 07/29/2016 sulfa, cipro, keflex Other allergy 08/11/2017 CEPHALEXIN MONOHYDRATE, SULFA, CIPROFLOXACIN, DIPHENYDRAMINE, MORPHINE, CIPROFLOXACIN HCI Admission Admission Data Admission Date: 08/09/2017 Admission Time: 15:47 Room #: D2126 Lab Results Lab Result Date: 08/11/2017 Lab Result Time: 0:00 Biochemistry Name Units Result Min Max BUN mg/dl 24 --(----)-* 7 18 Creatinine mg/dl 1 --(--*-)-- 0.6 1.3 CBC Name Units Result Min Max Hemoglobin g/dl 11.9 *-(----)-- 13.5 17.5 Procedure Procedure Types Cath Procedure Diagnostic Procedure LHC LHC w/Coronaries w/Grafts FFR/IVUS Intra-Coronary IVUS Initial Sedation Charges Moderate Sedation up to 15 minutes PCI Procedure Coronary Stent Coronary Stent Initial Coronary Stent Additional Procedure Description Procedure Date Procedure Date: 08/11/2017 Procedure Start Time: 9:11 Procedure End Time: 9:31 Procedure Staff Name Function Marcus Watson MD Performing Physician Jessenia Del Angel RT Monitor Pablito Grier RT Scrub Nikko Krishnan RN Nurse Procedure Data Cath Procedure Fluoroscopy Diagnostic fluoroscopy Total fluoroscopy Time: 5.2 time: 5.2 min min Diagnostic fluoroscopy Total fluoroscopy dose: 789 dose: 789 mGy mGy Contrast Material Contrast Material Type Amount (ml) Isovue 370 113 Entry Location Entry Primary Successful Side Size Upsize Upsize Entry Closure Succes sful Closure Location (Fr) 1 (Fr) 2 (Fr) Remarks Device Remarks Femoral Right 5 Fr Exoseal artery Estimated blood loss: 10 ml Diagnostic catheters Device Type Used For End Catheter Placement MULTIPACK Pigtail 5 Fr Procedure catheter MULTIPACK JL 4.0 5Fr Procedure catheter MULTIPACK 3DRC 5Fr Procedure catheter Procedure Complications No complications Procedure Medications Medication Administration Route Dosage Oxygen etCO2 Nasal cannula 2 l/min Heparin Flush Bag added to field 2 bags (1000units/500ml NS) 0.9% NaCl I.V. 100 ml/hr Fentanyl I.V. 50 mcg Versed I.V. 1 mg Fentanyl I.V. 50 mcg Versed I.V. 1 mg Heparin Bolus I.V. 4000 units Fentanyl I.V. 25 mcg Fentanyl I.V. 25 mcg Hemodynamics Rest HGB: 11.9 (g/dl) Heart Rate: 90 (bpm) Snapshots Pre Cath Intra NCS Post Cath Vital Signs Time Heart Resp SPO2 etCO2 NIBP (mmHg) Rhythm Pain Sedation Rate (ipm) (%) (mmHg) Status Level (bpm) 8:59:50 110 17 93 33.9 143/68(127) NSR 0 (11) 10(A) , No pain 9:04:26 104 25 92 39.9 134/91(110) NSR 0 (11) 10(A) , No pain 9:09:01 104 19 94 42.2 137/90(108) NSR 0 (11) 9(A) , No pain 9:13:33 96 19 90 38.4 151/104(133) NSR 0 (11) 9(A) , No pain 9:18:10 103 18 89 45.2 154/101(142) NSR 0 (11) 9(A) , No pain 9:23:33 106 18 95 45.9 145/93(132) NSR 0 (11) 9(A) , No pain 9:27:47 117 19 96 42.2 133/98(114) NSR 0 (11) 9(A) , No pain Medications Time Medication Route Dose Verified Delivered Reason Notes Effectiveness by by 8:54:19 Oxygen etCO2 2 Marcus Nikko Per physician Nasal l/min Walter Krishnan RN cannula 8:54:28 Heparin Flush added 2 Marcus El used for Bag to bags Walter Krishnan RN procedure (1000units/500ml field NS) 8:54:38 0.9% NaCl I.V. 100 Marcus Nikko Per physician ml/hr Walter Krishnan RN 9:06:54 Fentanyl I.V. 50 Marcus Nikko for sedation mcg Walter Krishnan RN 9:06:59 Versed I.V. 1 mg Marcus Nikko for sedation Walter Krishnan RN 9:12:22 Fentanyl I.V. 50 Marcus Nikko for sedation mcg Walter Krishnan RN 9:12:26 Versed I.V. 1 mg Marcus Buchanany for sedation Walter Krishnan RN 9:19:17 Heparin Bolus I.V. 4000 Marcus Nikko for units Walter Krishnan RN anticoagulation 9:20:02 Fentanyl I.V. 25 Marcus Nikko for sedation mcg Walter Krishnan RN 9:23:21 Fentanyl I.V. 25 Marcus Nikko for sedation mcg Walter Krishnan RN Procedure Log Time Note 8:28:56 Pablito Grier RT(R) sent for patient. Start room use. 8:28:58 Time tracking: Regular hours (M-F 7:00 - 5:00) 8:29:02 Plan of Care:Hemodynamics will remain stable., Cardiac rhythm will remain stable., Comfort level will be maintained., Respiratory function will remain adequate., Patient/ family verbilizes understanding of procedure., Procedure tolerated without complication., Recovers from procedure without complications.. 8:51:30 Patient received from PCU to CCL 1 Alert and oriented. Tansferred to table in Supine position. 8:51:32 Warm blankets applied, and george hugger turned on for patient comfort. 8:51:33 Correct patient and procedure confirmed by team. 8:51:34 Signed procedure consent form obtained from patient. 8:51:35 ECG and BP/O2 sat monitors applied to patient. 8:54:19 Oxygen 2 l/min etCO2 Nasal cannula was administered by Nikko Krishnan RN; Per physician; 8:54:28 Heparin Flush Bag (1000units/500ml NS) 2 bags added to field was administered by Nikko Krishnan RN; used for procedure; 8:54:38 0.9% NaCl 100 ml/hr I.V. was administered by Nikko Krishnan RN; Per physician; 8:58:18 Vital chart was started 8:59:43 Baseline sample Acquired. 9:00:03 Rhythm: sinus rhythm 9:00:13 sinus ryhthm with PACs 9:00:14 Full Disclosure recording started 9:00:23 H&P Date Dictated: 08/10/2017 Within 30 days and on chart.. 9:00:24 Pre-procedure instructions explained to patient. 9:00:25 Pre-op teaching completed and patient verbalized understanding. 9:00:28 Family unavailable. 9:00:31 Patient NPO since Midnight. 9:01:23 Patient allergic to Other allergyCEPHALEXIN MONOHYDRATE, SULFA, CIPROFLOXACIN, DIPHENYDRAMINE, MORPHINE, CIPROFLOXACIN HCI 9:01:30 Is patient on blood thinner?Yes 9:01:32 ACC The patient was administered the following blood thiners within the last 24 hours: ACCPlavix 9:01:34 Patient diabetic? Yes. 9:01:36 If diabetic: On Metformin? No 9:01:41 Previous problem with sedation/anesthesia? No ? 9:01:42 Snore? No 9:01:42 Sleep apnea? No 9:01:43 Deviated septum? No 9:01:44 Opens mouth fully? Yes 9:01:45 Sticks out tongue? Yes 9:01:48 Airway obstruction? Yes COPD 9:01:51 Dentures? No ? 9:01:55 Pre procedure: right dorsailis pedis pulse 2+ Normal; easily identifiable; not easily obliterated 9:01:57 Patient pain scale 0/10 ?. 9:02:10 IV patent on arrival in right wrist with 0.9% NaCl at [facility]. 9:03:37 Lab Result : BUN 24 mg/dl 9:03:37 Lab Result : Creatinine 1 mg/dl 9:03:37 Lab Result : Hemoglobin 11.9 g/dl 9:03:40 Lab results completed and on chart. 9:03:44 Right groin area was prepped with chlora-prep and draped in sterile fashion 9:03:45 Alarms reviewed by R. N. 9:03:45 Sharps counted by scrub and verified by R.N. 9:04:01 Use device set Femoral Dx 9:04:02 ACIST Syringe (52256) opened to sterile field. 9:04:02 Bag Decanter (2002S) opened to sterile field. 9:04:04 ACIST Manifold (43206) opened to sterile field. 9:04:04 ACIST Hand Control (27147) opened to sterile field. 9:04:06 Tegaderm 4 x 4 (1626W) opened to sterile field. 9:04:07 Medline Cath Pack ([id number]) opened to sterile field. 9:04:08 DIAGNOSTIC WIRE .035 260cm J wire (474521) opened to sterile field. 9:04:09 DIAGNOSTIC Multipack 5Fr catheter set (KO7667) opened to sterile field. 9:05:34 STOPCOCK 3-Way Large Bore ([id number]) opened to sterile field. 9:06:22 SHEATH 6FR [place] (RRJ523) opened to sterile field. 9:06:34 --------ALL STOP TIME OUT------ 9:06:34 Final Timeout: patient, procedure, and site verified with staff and physician. All members of the team are in agreement. 9:06:36 Right groin site verified by team. 9:06:39 Physical assessment completed. ASA score P 2 - A patient with mild systemic disease as per Marcus Watson MD. 9:06:42 Sedation plan: IV Moderate Sedation Medication:Versed, Fentanyl 9:06:54 Fentanyl 50 mcg I.V. was administered by Nikko Krishnan RN; for sedation; 9:06:59 Versed 1 mg I.V. was administered by Nikko Krishnan RN; for sedation; 9:10:51 Zero performed for pressure channel P1 9:10:55 Procedure started. 9:11:02 Local anesthetic to right femoral artery with Lidocaine 2% by Marcus Watson MD.INITIAL ACCESS ONLY 9:12:08 Zero performed for pressure channel P1 9:12:22 Fentanyl 50 mcg I.V. was administered by Nikko Krishnan RN; for sedation; 9:12:26 Versed 1 mg I.V. was administered by Nikko Krishnan RN; for sedation; 9:13:00 A 5 Fr sheath was inserted into the Right Femoral artery 9:13:08 A MULTIPACK Pigtail 5 Fr catheter was advanced over the wire and used for Procedure. 9:13:16 LV gram done using COBOS 9:: Injector settings: Ml/sec: 10, Volume: 20, 9:13:49 EF : 20 % 9:13:51 Catheter removed. 9:14:00 A MULTIPACK JL 4.0 5Fr catheter was advanced over the wire and used for Procedure. 9:14:47 LCA angiography performed. 9:15:10 Catheter removed. 9:15:16 A MULTIPACK 3DRC 5Fr catheter was advanced over the wire and used for Procedure. 9:15:57 ORO to LAD angiography performed. 9:16:20 RCA angiography performed. 9:16:40 INFLATOR Merit BasixCompak (IC2435) opened to sterile field. 9:16:49 SVG to RCA angiography performed. 9:16:55 SVG to Diag occluded. 9:17:02 Catheter removed. 9:17:20 CHOICE PT Extra Support 182cm wire ([id number]) opened to sterile field. 9:17:56 GUIDE 6FR AR 2.0 catheter ([id number]) opened to sterile field. 9:18:02 Morgan Rosalia Eagleye IVUS Catheter (02154T) opened to sterile field. 9:18:09 6 Fr AR 2 guide catheter was inserted over the wire 9:18:16 CHOICE ES 182 wire advanced. 9:19:01 Wire advanced across lesion. 9:19:10 IVUS catheter advanced over wire. 9:19:17 Heparin Bolus 4000 units I.V. was administered by Nikko Krishnan RN; for anticoagulation; 9:20:00 IVUS pass to RCA lesion performed. 9:20:02 Fentanyl 25 mcg I.V. was administered by Nikko Krishnan RN; for sedation; 9:20:02 IVUS catheter removed over wire. 9:22:08 Place stent Inflation Number: 1 A EMILY RX 2.5 x 15 stent ([id number]) was prepped and advanced across the 1st RPL. The stent was deployed at 21 ELLA for 0:10 (min:sec). 9:22:19 Stent catheter was removed intact over wire. 9:23:21 Fentanyl 25 mcg I.V. was administered by Nikko Krishnan RN; for sedation; 9:23:33 Place stent Inflation Number: 1 A EMILY RX 4.5 x 18 stent ([id number]) was prepped and advanced across the Prox RCA. The stent was deployed at 13 ELLA for 0:10 (min:sec). 9:24:03 Inflation number: 2 The stent balloon was then re-inflated across the Prox RCA to 21 ELLA for 0:10 (min:sec). 9:24:30 Stent catheter was removed intact over wire. 9:25:49 Place stent Inflation Number: 3 A EMILY RX 4.5 x 12 stent ([id number]) was prepped and advanced across the Prox RCA. The stent was deployed at 21 ELLA for 0:10 (min:sec). 9:26:11 Stent catheter was removed intact over wire. 9:26:12 Wire removed. 9:26:13 Guide catheter removed. 9:26:22 EXOSEAL 6Fr (EX600) opened to sterile field. 9:26:32 Sheath removed intact; hemostasis achieved with Exoseal to the Right Femoral artery. 9:26:51 Procedure ended.(Physican Out) 9:27:57 Fluoroscopy time 05.20 minutes. 9:28:00 Fluoroscopy dose: 789 mGy 9:28:00 Flurop Dose total: 789 9:28:05 Contrast amount:Isovue 370 113ml. 9:28:16 Sharps counted by scrub and verified by R.N. 9:28:19 Post-op/insertion site Right Femoral artery dressed using a 4 x 4 and Tegaderm. 9:28:23 Post right femoral artery:stable, soft, clean and dry 9:28:27 Post procedure: left dorsailis pedis pulse 2+ Normal; easily identifiable; not easily obliterated. 9:28:30 Post-procedure physical assessment completed. ASA score P 2 - A patient with mild systemic disease as per Marcus Watson MD. 9:28:33 Post procedure rhythm: unchanged. 9:28:35 Estimated blood loss: 10 ml 9:28:36 Post procedure instruction explained to patient.Patient verbalizes understanding. 9:28:37 Patient needs reinforcement of post procedure teaching. 9:28:56 Procedure type changed to Cath procedure, Diagnostic procedure, LHC, LHC w/Coronaries w/Grafts, FFR/IVUS, Intra-Coronary IVUS Initial, Sedation Charges, Moderate Sedation up to 15 minutes, PCI procedure, Coronary Stent, Coronary Stent Initial, Coronary Stent Additional 9:31:23 Procedure and supply charges have been captured, reviewed, submitted and are correct. 9:31:25 Procedure Complication : No complications 9:31:27 Vital chart was stopped 9:31:28 See physician's report for complete and final results. 9:31:30 Report given to [facility]. 9:31:32 Patient transfered to [facility] with Bed. 9:31:34 Procedure ended. 9:31:34 Full Disclosure recording stopped 9:31:40 End room use (Document Last) Intervention Summary Intervention Notes Time ActionType Lesion and Equipment Used Action# Pressure Duration Attributes 9:22:08 Place stent 1st RPL EMILY RX 2.5 x 1 21 00:10 15 stent ([id number]) 9:23:33 Place stent Prox RCA EMILY RX 4.5 x 1 13 00:10 18 stent ([id number]) 9:24:03 Reinflate Prox RCA EMILY RX 4.5 x 2 21 00:10 stent 18 stent balloon ([id number]) 9:25:49 Place stent Prox RCA EMILY RX 4.5 x 3 21 00:10 12 stent ([id number]) Device Usage Item Name Manufacture Quantity Catalog Number Hospital Part Current M inimal Lot# / Charge Number Stock Stock Serial# Code ACIST Syringe Acist 1 46600 914195 459035 [id number] 2 0 (69488) Medical Systems Inc Bag Decanter Microtek 1 2001S 432695 64813 564218 5 () Medical Inc. ACIST Manifold Acist 1 48883 810887 255905 072280 5 (16995) Medical Systems Inc ACIST Hand Acist 1 32759 773059 784320 093272 5 Control Medical (73555) Systems Inc Tegaderm 4 x 4 3M 1 1626W 907279 044065 180394 5 (1626W) Medline Cath Cardinal 1 [id number] 815472 46493 743160 5 [facility] ([id number]) DIAGNOSTIC St Saleem 1 213078 037057 370769 889065 3 0 WIRE .035 260cm J wire (195915) DIAGNOSTIC Cardinal 1 XO4855 907062 56187 587881 3 0 Multipack 5Fr Health catheter set (KV2067) STOPCOCK 3-Way [employer] Medical 1 C45402 627643 6726 408203 5 Large Bore (R90892) SHEATH 6FR Terumo 1 [id number] 030444 918312 008295 4 0 [place] (VAF642) MULTIPACK Cardinal 1 212634 5 Pigtail 5 Fr Health catheter MULTIPACK JL Cardinal 1 202666 5 4.0 5Fr Health catheter MULTIPACK 3DRC Cardinal 1 099204 5 5Fr catheter Health INFLATOR [facility] 1 SZ4815 090915 998073 498977 1 5 Afraxis (JO3642) CHOICE PT Fackler 1 [id number] 301829 354403 461835 5 Extra Support Scientific 182cm wire ([id number]) GUIDE 6FR AR Medtronic 1 [id number] 906011 74096 936577 1 2.0 catheter ([id number]) Morgan Morgan 1 [id number] 560628 552376 833980 8 Rosalia Eagleye IVUS Catheter (18088L) EMILY RX 2.5 x Medtronic 1 [id number] 311859 6761020 512741 5 [id number] 15 stent ([id number]) EMILY RX 4.5 x Medtronic 1 [id number] 276094 9560653 619235 5 [id number] 18 stent ([id number]) EMILY RX 4.5 x Medtronic 1 [id number] 034340 0304829 810268 5 [id number] 12 stent ([id number]) EXOSEAL 6Fr Cardinal 1 EX600 130474 827735 399716 1 0 (EX600) Health Signature Audit [place] Stage Time Signature Unsigned Intra-Procedure 08/11/2017 Jessenia Del Angel 9:32:18 AM RT(R) Signatures Monitor : Jessenia Del Angel Signature : RT Date : Time : [place] [address] [address]
--- NOTE | ~2017-08-09 | CN ---
PATIENT NAME:YINKA JACKSON MEDICAL RECORD: [id number] : 54 LOCATION:D. D.2126 ADMIT DATE: 08/09/17 ACCOUNT: [id number] CONSULTING PHYSICIAN: RAFAELA WILSON MD REFERRING PHYSICIAN: EVA WOMACK MD DATE OF CONSULTATION: 08/09/2017 CONSULT REQUESTING PHYSICIAN: Eva Womack MD REASON FOR CONSULTATION: Pneumonia, acute exacerbation of chronic obstructive pulmonary disease, pulmonary edema. HISTORY OF PRESENT ILLNESS: Ms. Jackson is a 67-year-old female. She was just discharged from inpatient rehabilitation 2 days ago. According to the patient, she is sick by day of discharge, she is coughing, she is wheezing, she has fever. She is very much congested in her chest. The patient was brought into the ER, she has flash pulmonary edema and there are elevated cardiac enzymes. REVIEW OF SYSTEMS: As in history of present illness. PAST MEDICAL HISTORY: 1. CVA. 2. Diabetes mellitus. 3. Congestive heart failure. 4. Coronary artery disease. 5. Hypertension. 6. Chronic obstructive pulmonary disease. 7. Chronic hypoxic respiratory failure. 8. Anxiety, depression. PAST SURGICAL HISTORY: 1. . 2. Left knee surgery. 3. CABG. ALLERGIES: SHE IS ALLERGIC TO KEFLEX, SULFA, CIPRO, BENADRYL, AND MORPHINE. PRESENT MEDICATIONS: [employer] is reviewed. PERSONAL AND SOCIAL HISTORY: The patient is a nonsmoker, nondrinker. FAMILY HISTORY: Noncontributory. PHYSICAL EXAMINATION: GENERAL: Now, the patient is lying comfortably. She is not in acute distress. VITAL SIGNS: Pulse ox is 95% on supplemental oxygen. HEENT: Conjunctivae are pink. Sclerae are not icteric. NECK: Supple. There is elevated JVD. CHEST: There is a prolonged expiration with wheezing. There are bibasilar crackles. HEART: Rhythm regular, normal sound, no murmur. ABDOMEN: Soft, bowel sounds present. No hepatosplenomegaly. RECTAL: Deferred. EXTREMITIES: No cyanosis or clubbing. 1+ pedal edema. CONSULT REPORT [id number] YINKA JACKSON SKIN: Warm, normal turgor. CENTRAL NERVOUS SYSTEM: The patient is awake and alert. There are no obvious cranial nerve abnormality. The gait was not tested. IMAGING: Chest radiograph: There are bilateral lower lobe infiltrate. There is a flash pulmonary edema. Chemistry: Sodium 143, potassium 3.9, chloride 108, bicarbonate 31.1, BUN is 19, creatinine 1.1, calcium 8.9. Liver enzymes within normal range. The troponin is 0.07. The proBNP is 8888. CBC: WBC 10.4, hemoglobin 13.1, hematocrit 40.8, the platelet count is 205. ABG: The pH is 7.40, pCO2 is 46.6, the pO2 is 52. IMPRESSION: 1. Vfxwx-ue-glzleua hypoxic respiratory failure. 2. Pulmonary edema. 3. Bilateral pneumonia, most likely hospital-acquired pneumonia with the patient recent hospitalization. 4. Congestive heart failure. 5. Elevated cardiac enzymes. 6. Status post cerebrovascular accident. RECOMMENDATION: 1. Start on meropenem to cover for HAP and gram-negative rods and anaerobes. Vancomycin IV for gram-positive cocci and possible MRSA and hospital-acquired pneumonia. 2. Methylprednisolone IV, adjust the dosage. 3. Lasix 20 mg IV q.8 hourly. 4. Albuterol and ipratropium nebulizer, Brovana and budesonide nebulizer. 5. Supplemental oxygen. 6. Speech therapy swallowing evaluation. 7. We will follow up labs and chest radiograph. Dr. Womack, thank you for involving me in the care of Mr. Jackson. TRANSINT:[id number] Voice Confirmation ID: [id number] DOCUMENT ID: [id number] RAFAELA WILSON MD at 1208 CC: EVA WOMACK MD [id number] DICTATION DATE: 08/09/17 171 NANOSCIENCE TECHNICIAN: 08/09/17 [address] [facility] [address] [facility] [place] [address]
[~2017-08-09 13:57] MED LIST changes: +GLIMEPIRIDE2 MG PO
[2017-08-09 14:49] LABS: BASOPHILS 0.5 % (0-2); EOSINOPHILS 1.2 % (0-7); HEMATOCRIT 40.8 % (36.0-48.0); HEMOGLOBIN 13.1 g/dL (12-16); IMMATURE GRANULOCYTES 0.3 % (0-5); LYMPHOCYTES 10.1 % (15-50); MCH 28.7 pg (26.0-34.0); MCHC 32.1 g/dL (31.0-37.0); MCV 89.5 fL (80.0-100.0); MEAN PLATELET VOLUME 10.7 fL (7.4-10.4); MONOCYTES 9.1 % (2-11); NEUTROPHILS 78.8 % (40-80); RBC 4.56 10x6/uL (4.00-5.40); RDW 14.1 % (11.5-14.5); WBC 10.4 10x3/uL (4.8-10.8)
[2017-08-09 14:51] LABS: PLATELET COUNT 205 10x3/uL (130-400)
[2017-08-09 15:07] LABS: ALBUMIN 2.9 g/dL (3.4-5.0); ANION GAP 7.7 mmol/L (8-16); BILIRUBIN - TOTAL 0.6 mg/dL (0.2-1.3); CALCIUM 8.9 mg/dL (8.5-10.1); CARBON DIOXIDE 31.2 mmol/L (21.0-32.0); CREATININE - SERUM 1.1 mg/dL (0.6-1.3); POTASSIUM - SERUM 3.9 mmol/L (3.5-5.1); PROTEIN - SERUM 7.2 g/dL (6.4-8.2)
[2017-08-09 15:27] LABS: TROPONIN-I 0.07 ng/mL (0.000-0.060)
[2017-08-09 18:13] VITALS: BMI 18.2
[2017-08-09 21:15] VITALS: BP 134/72
[2017-08-09 21:37] LABS: CKMB 1.1 U/L (0.0-3.6); CREATINE KINASE 29 UL (21-215); TROPONIN-I 0.049 ng/mL (0.000-0.060)
[2017-08-10 01:05] VITALS: BP 138/81
[2017-08-10 03:38] LABS: ALBUMIN 2.7 g/dL (3.4-5.0); ALKALINE PHOSPHATASE 120 U/L (46-116); ALT (SGPT) 92 U/L (10-68); CALC OSMOLALITY 292 mosm/kg (275-300); CALCIUM 8.3 mg/dL (8.5-10.1); CARBON DIOXIDE 28.8 mmol/L (21.0-32.0); CHLORIDE - SERUM 107 mmol/L (98-107); CKMB 1.2 U/L (0.0-3.6); CREATINE KINASE 24 UL (21-215); GLUCOSE 213 mg/dL (74-106); POTASSIUM - SERUM 3.4 mmol/L (3.5-5.1); PROTEIN - SERUM 6.6 g/dL (6.4-8.2); SODIUM 143 mmol/L (136-145); TROPONIN-I 0.042 ng/mL (0.000-0.060); UREA NITROGEN 17 mg/dL (7-18); eGFR NON AFRICAN AMERICAN 59 mL/min (90-120)
[2017-08-10 03:40] LABS: BASOPHILS 0.7 % (0-2); EOSINOPHILS 0.9 % (0-7); HEMATOCRIT 38.5 % (36.0-48.0); HEMOGLOBIN 12.4 g/dL (12-16); IMMATURE GRANULOCYTES 0.4 % (0-5); LYMPHOCYTES 3.2 % (15-50); MCH 28.6 pg (26.0-34.0); MCHC 32.2 g/dL (31.0-37.0); MCV 88.7 fL (80.0-100.0); MEAN PLATELET VOLUME 10.4 fL (7.4-10.4); MONOCYTES 7.6 % (2-11); NEUTROPHILS 87.2 % (40-80); PLATELET COUNT 173 10x3/uL (130-400); RBC 4.34 10x6/uL (4.00-5.40); RDW 13.9 % (11.5-14.5); WBC 8.1 10x3/uL (4.8-10.8)
[2017-08-10 05:16] VITALS: BP 130/13
[2017-08-10 07:51] VITALS: BP 154/101
[2017-08-10 11:21] VITALS: BP 124/71
[2017-08-10 15:07] VITALS: BP 148/86
[2017-08-10 21:33] VITALS: BP 139/78
[2017-08-11 05:11] LABS: BASOPHILS 0.2 % (0-2); EOSINOPHILS 0.1 % (0-7); HEMATOCRIT 36.1 % (36.0-48.0); HEMOGLOBIN 11.9 g/dL (12-16); IMMATURE GRANULOCYTES 0.3 % (0-5); LYMPHOCYTES 2.7 % (15-50); MCH 28.7 pg (26.0-34.0); MEAN PLATELET VOLUME 10.7 fL (7.4-10.4); NEUTROPHILS 89.7 % (40-80); PLATELET COUNT 187 10x3/uL (130-400); RBC 4.15 10x6/uL (4.00-5.40); RDW 13.7 % (11.5-14.5); WBC 10.9 10x3/uL (4.8-10.8)
[2017-08-11 05:44] LABS: ALBUMIN 2.6 g/dL (3.4-5.0); ANION GAP 12.2 mmol/L (8-16); BILIRUBIN - TOTAL 0.3 mg/dL (0.2-1.3); CALCIUM 8.7 mg/dL (8.5-10.1); POTASSIUM - SERUM 3.2 mmol/L (3.5-5.1); PROTEIN - SERUM 6.5 g/dL (6.4-8.2); VANCOMYCIN - TROUGH 13.2 ug/mL (10.0-20.0)
[2017-08-11 06:12] VITALS: BP 146/81
[2017-08-11 09:14] VITALS: BP 135/83
[2017-08-11 15:36] VITALS: BP 134/65
[2017-08-11 20:00] VITALS: BP 132/89
[2017-08-12] VITALS: BP 130/80
[2017-08-12 04:00] VITALS: BP 152/92
[2017-08-12 05:11] LABS: BASOPHILS 0.2 % (0-2); EOSINOPHILS 0.1 % (0-7); HEMATOCRIT 38.4 % (36.0-48.0); HEMOGLOBIN 12.4 g/dL (12-16); IMMATURE GRANULOCYTES 0.4 % (0-5); LYMPHOCYTES 6.5 % (15-50); MCH 28.5 pg (26.0-34.0); MCHC 32.3 g/dL (31.0-37.0); MCV 88.3 fL (80.0-100.0); MEAN PLATELET VOLUME 11.2 fL (7.4-10.4); MONOCYTES 3.8 % (2-11); PLATELET COUNT 199 10x3/uL (130-400); RBC 4.35 10x6/uL (4.00-5.40); RDW 13.8 % (11.5-14.5); WBC 10.7 10x3/uL (4.8-10.8)
[2017-08-12 05:38] LABS: ALBUMIN 2.7 g/dL (3.4-5.0); ANION GAP 8.9 mmol/L (8-16); BILIRUBIN - TOTAL 0.3 mg/dL (0.2-1.3); CARBON DIOXIDE 34.6 mmol/L (21.0-32.0); CREATININE - SERUM 1.1 mg/dL (0.6-1.3); PHOSPHOROUS 3.4 mg/dL (2.5-4.9); POTASSIUM - SERUM 3.5 mmol/L (3.5-5.1); PROTEIN - SERUM 6.8 g/dL (6.4-8.2)
[2017-08-12 07:59] VITALS: BP 147/80
[2017-08-12 12:18] VITALS: Ht 172.7 cm; Wt 68.2 kg
[2017-08-12 15:22] VITALS: BP 153/91
[2017-08-12 20:00] VITALS: BP 140/83
[2017-08-13] VITALS: BP 137/71
[2017-08-13 04:00] VITALS: BP 135/83
[2017-08-13 05:36] LABS: BASOPHILS 0.2 % (0-2); EOSINOPHILS 0.5 % (0-7); HEMATOCRIT 36.2 % (36.0-48.0); HEMOGLOBIN 11.4 g/dL (12-16); IMMATURE GRANULOCYTES 0.2 % (0-5); LYMPHOCYTES 13.3 % (15-50); MCH 28.1 pg (26.0-34.0); MCHC 31.5 g/dL (31.0-37.0); MCV 89.2 fL (80.0-100.0); MONOCYTES 17.1 % (2-11); NEUTROPHILS 68.7 % (40-80); PLATELET COUNT 187 10x3/uL (130-400); RBC 4.06 10x6/uL (4.00-5.40); RDW 13.8 % (11.5-14.5); WBC 8.9 10x3/uL (4.8-10.8)
[2017-08-13 06:09] LABS: ALBUMIN 2.4 g/dL (3.4-5.0); BILIRUBIN - TOTAL 0.26 mg/dL (0.2-1.3); CALCIUM 8.5 mg/dL (8.5-10.1); CARBON DIOXIDE 36.2 mmol/L (21.0-32.0); CREATININE - SERUM 0.9 mg/dL (0.6-1.3); MAGNESIUM - SERUM 1.9 mg/dL (1.8-2.4); PHOSPHOROUS 3.3 mg/dL (2.5-4.9); POTASSIUM - SERUM 3.2 mmol/L (3.5-5.1); PROTEIN - SERUM 6.1 g/dL (6.4-8.2)
[2017-08-13 08:30] VITALS: BP 118/78
[2017-08-13 11:04] VITALS: BP 122/71
[2017-08-13 16:52] VITALS: BP 128/76
[2017-08-13 20:11] VITALS: BP 115/70
[2017-08-14 00:11] VITALS: BP 110/76
[2017-08-14 05:39] VITALS: BP 127/79
[2017-08-14 05:45] LABS: BASOPHILS 0.2 % (0-2); EOSINOPHILS 0.1 % (0-7); HEMATOCRIT 38.3 % (36.0-48.0); HEMOGLOBIN 12.2 g/dL (12-16); IMMATURE GRANULOCYTES 1.1 % (0-5); LYMPHOCYTES 14.5 % (15-50); MCH 28.6 pg (26.0-34.0); MCHC 31.9 g/dL (31.0-37.0); MCV 89.7 fL (80.0-100.0); MEAN PLATELET VOLUME 10.9 fL (7.4-10.4); MONOCYTES 3.6 % (2-11); NEUTROPHILS 80.5 % (40-80); PLATELET COUNT 163 10x3/uL (130-400); RBC 4.27 10x6/uL (4.00-5.40); RDW 13.8 % (11.5-14.5)
[2017-08-14 06:05] LABS: ALBUMIN 2.5 g/dL (3.4-5.0); ANION GAP 7.2 mmol/L (8-16); BILIRUBIN - TOTAL 0.3 mg/dL (0.2-1.3); CALCIUM 8.6 mg/dL (8.5-10.1); CARBON DIOXIDE 36.4 mmol/L (21.0-32.0); CREATININE - SERUM 1.1 mg/dL (0.6-1.3); POTASSIUM - SERUM 3.6 mmol/L (3.5-5.1); PROTEIN - SERUM 6.1 g/dL (6.4-8.2); VANCOMYCIN - TROUGH 19.6 ug/mL (10.0-20.0)
[2017-08-14 08:29] VITALS: BP 131/76
[2017-08-14 11:45] VITALS: BP 128/66
[2017-08-14 20:00] VITALS: BP 137/73
[2017-08-14 20:23] LABS: APTT 28.7 SECONDS (22.8-39.4); INR 1.11 (0.85-1.17); PROTIME 13.9 SECONDS (11.6-15.0)
[2017-08-14 20:49] LABS: BASOPHILS 0.1 % (0-2); EOSINOPHILS 0.4 % (0-7); HEMOGLOBIN 11.9 g/dL (12-16); LYMPHOCYTES 12.2 % (15-50); MCH 28.5 pg (26.0-34.0); MCHC 32.2 g/dL (31.0-37.0); MCV 88.7 fL (80.0-100.0); MEAN PLATELET VOLUME 11.5 fL (7.4-10.4); MONOCYTES 13.3 % (2-11); PLATELET COUNT 168 10x3/uL (130-400); RBC 4.17 10x6/uL (4.00-5.40); RDW 13.8 % (11.5-14.5); WBC 10.4 10x3/uL (4.8-10.8)
[2017-08-15] VITALS: BP 135/82
[2017-08-15 04:00] VITALS: BP 128/71
[2017-08-15 06:28] LABS: BASOPHILS 0.1 % (0-2); EOSINOPHILS 0.2 % (0-7); HEMATOCRIT 38.5 % (36.0-48.0); IMMATURE GRANULOCYTES 0.9 % (0-5); LYMPHOCYTES 9.8 % (15-50); MCH 27.8 pg (26.0-34.0); MCHC 31.2 g/dL (31.0-37.0); MCV 89.1 fL (80.0-100.0); MEAN PLATELET VOLUME 11.1 fL (7.4-10.4); MONOCYTES 9.6 % (2-11); NEUTROPHILS 79.4 % (40-80); PLATELET COUNT 155 10x3/uL (130-400); RBC 4.32 10x6/uL (4.00-5.40); RDW 13.5 % (11.5-14.5); WBC 9.8 10x3/uL (4.8-10.8)
[2017-08-15 06:46] LABS: CALCIUM 8.6 mg/dL (8.5-10.1); CARBON DIOXIDE 39.4 mmol/L (21.0-32.0); CHLORIDE - SERUM 100 mmol/L (98-107); POTASSIUM - SERUM 3.8 mmol/L (3.5-5.1); SODIUM 144 mmol/L (136-145); UREA NITROGEN 27 mg/dL (7-18); eGFR NON AFRICAN AMERICAN 76 mL/min (90-120)
[2017-08-15 06:49] LABS: CALC OSMOLALITY 297 mosm/kg (275-300); CREATININE - SERUM 0.8 mg/dL (0.6-1.3); GLUCOSE 215 mg/dL (74-106)
[2017-08-15 08:27] VITALS: BP 143/83
[2017-08-15 13:43] LABS: CKMB 0.2 U/L (0.0-3.6); CREATINE KINASE 26 UL (21-215)
[2017-08-15 15:42] VITALS: BP 118/75
[2017-08-15 20:30] VITALS: BP 123/73
[2017-08-16] VITALS (9 sets, daily range): BP systolic 107–132; BP diastolic 59–88
[2017-08-16 04:36] LABS: BASOPHILS 0 % (0-2); EOSINOPHILS 0.1 % (0-7); HEMATOCRIT 36.4 % (36.0-48.0); HEMOGLOBIN 11.5 g/dL (12-16); IMMATURE GRANULOCYTES 0.4 % (0-5); LYMPHOCYTES 5.2 % (15-50); MCH 28.2 pg (26.0-34.0); MCHC 31.6 g/dL (31.0-37.0); MCV 89.2 fL (80.0-100.0); MEAN PLATELET VOLUME 11.6 fL (7.4-10.4); MONOCYTES 6.7 % (2-11); NEUTROPHILS 87.6 % (40-80); PLATELET COUNT 152 10x3/uL (130-400); RBC 4.08 10x6/uL (4.00-5.40); RDW 13.7 % (11.5-14.5); WBC 11.2 10x3/uL (4.8-10.8)
[2017-08-16 04:48] LABS: CALC OSMOLALITY 295 mosm/kg (275-300); CALCIUM 8.6 mg/dL (8.5-10.1); CARBON DIOXIDE 38.1 mmol/L (21.0-32.0); CHLORIDE - SERUM 102 mmol/L (98-107); CREATININE - SERUM 0.8 mg/dL (0.6-1.3); GLUCOSE 248 mg/dL (74-106); SODIUM 141 mmol/L (136-145); UREA NITROGEN 33 mg/dL (7-18); VANCOMYCIN - TROUGH 23.8 ug/mL (10.0-20.0); eGFR NON AFRICAN AMERICAN 76 mL/min (90-120)
[2017-08-16 14:13] LABS: AFB SPECIMEN PROCESSING Concentration (())
[2017-08-17] VITALS: BP 133/73
[2017-08-17 04:00] VITALS: BP 132/69
[2017-08-17 05:20] LABS: BASOPHILS 0 % (0-2); EOSINOPHILS 0.1 % (0-7); HEMATOCRIT 37.5 % (36.0-48.0); HEMOGLOBIN 11.8 g/dL (12-16); IMMATURE GRANULOCYTES 0.8 % (0-5); LYMPHOCYTES 9.7 % (15-50); MCHC 31.5 g/dL (31.0-37.0); MCV 89.1 fL (80.0-100.0); MONOCYTES 3.6 % (2-11); NEUTROPHILS 85.8 % (40-80); PLATELET COUNT 158 10x3/uL (130-400); RBC 4.21 10x6/uL (4.00-5.40); RDW 13.7 % (11.5-14.5); WBC 10.7 10x3/uL (4.8-10.8)
[2017-08-17 05:43] LABS: ANION GAP 11.9 mmol/L (8-16); CALCIUM 8.6 mg/dL (8.5-10.1); CARBON DIOXIDE 29.7 mmol/L (21.0-32.0); CREATININE - SERUM 0.9 mg/dL (0.6-1.3); POTASSIUM - SERUM 3.6 mmol/L (3.5-5.1)
[2017-08-17 09:16] VITALS: BP 116/72
[2017-08-17 12:02] VITALS: BP 150/86
[2017-08-17 15:39] VITALS: BP 130/79
[2017-08-17 20:00] VITALS: BP 121/58
[2017-08-18 04:00] VITALS: BP 143/82
[2017-08-18 06:20] LABS: BASOPHILS 0.1 % (0-2); EOSINOPHILS 0.1 % (0-7); HEMATOCRIT 36.1 % (36.0-48.0); HEMOGLOBIN 11.4 g/dL (12-16); LYMPHOCYTES 6.4 % (15-50); MCH 27.7 pg (26.0-34.0); MCHC 31.6 g/dL (31.0-37.0); MCV 87.6 fL (80.0-100.0); MEAN PLATELET VOLUME 11.7 fL (7.4-10.4); MONOCYTES 10.9 % (2-11); NEUTROPHILS 81.5 % (40-80); PLATELET COUNT 176 10x3/uL (130-400); RBC 4.12 10x6/uL (4.00-5.40); RDW 13.6 % (11.5-14.5); WBC 8.9 10x3/uL (4.8-10.8)
[2017-08-18 06:44] LABS: CALC OSMOLALITY 303 mosm/kg (275-300); CALCIUM 8.2 mg/dL (8.5-10.1); CARBON DIOXIDE 31.7 mmol/L (21.0-32.0); CHLORIDE - SERUM 104 mmol/L (98-107); CREATININE - SERUM 0.8 mg/dL (0.6-1.3); GLUCOSE 305 mg/dL (74-106); MAGNESIUM - SERUM 2.2 mg/dL (1.8-2.4); PHOSPHOROUS 3.8 mg/dL (2.5-4.9); POTASSIUM - SERUM 3.4 mmol/L (3.5-5.1); SODIUM 143 mmol/L (136-145); UREA NITROGEN 36 mg/dL (7-18); eGFR NON AFRICAN AMERICAN 76 mL/min (90-120)
[2017-08-18 07:57] VITALS: BP 124/67
[2017-08-18 11:28] VITALS: BP 141/71
[2017-08-18 15:17] VITALS: BP 135/65
[2017-08-18 20:00] VITALS: BP 145/79
[2017-08-19] VITALS: BP 141/83
[2017-08-19 04:00] VITALS: BP 161/75
[2017-08-19 05:03] LABS: BASOPHILS 0 % (0-2); EOSINOPHILS 0 % (0-7); HEMATOCRIT 38.8 % (36.0-48.0); HEMOGLOBIN 12.4 g/dL (12-16); IMMATURE GRANULOCYTES 0.8 % (0-5); LYMPHOCYTES 5.1 % (15-50); MCH 27.9 pg (26.0-34.0); MCV 87.4 fL (80.0-100.0); MONOCYTES 5.4 % (2-11); NEUTROPHILS 88.7 % (40-80); PLATELET COUNT 164 10x3/uL (130-400); RBC 4.44 10x6/uL (4.00-5.40); RDW 13.5 % (11.5-14.5); WBC 9.8 10x3/uL (4.8-10.8)
[2017-08-19 05:19] LABS: CALC OSMOLALITY 301 mosm/kg (275-300); CALCIUM 8.4 mg/dL (8.5-10.1); CARBON DIOXIDE 33.3 mmol/L (21.0-32.0); CHLORIDE - SERUM 107 mmol/L (98-107); CREATININE - SERUM 0.8 mg/dL (0.6-1.3); POTASSIUM - SERUM 3.7 mmol/L (3.5-5.1); SODIUM 146 mmol/L (136-145); UREA NITROGEN 33 mg/dL (7-18); eGFR NON AFRICAN AMERICAN 76 mL/min (90-120)
[2017-08-19 05:28] LABS: GLUCOSE 176 mg/dL (74-106)
[2017-08-19 08:09] VITALS: BP 153/75
[2017-08-19 11:41] VITALS: BP 144/80
[2017-08-19 15:32] VITALS: BP 121/73
[2017-08-19 20:00] VITALS: BP 125/77
[2017-08-20] VITALS: BP 126/74
[2017-08-20 04:00] VITALS: BP 155/74
[2017-08-20 06:14] LABS: BASOPHILS 0.1 % (0-2); EOSINOPHILS 0 % (0-7); HEMATOCRIT 37.7 % (36.0-48.0); HEMOGLOBIN 12.1 g/dL (12-16); IMMATURE GRANULOCYTES 0.8 % (0-5); LYMPHOCYTES 5.7 % (15-50); MCH 28.1 pg (26.0-34.0); MCHC 32.1 g/dL (31.0-37.0); MCV 87.7 fL (80.0-100.0); MEAN PLATELET VOLUME 11.2 fL (7.4-10.4); MONOCYTES 3.2 % (2-11); NEUTROPHILS 90.2 % (40-80); PLATELET COUNT 172 10x3/uL (130-400); WBC 9.9 10x3/uL (4.8-10.8)
[2017-08-20 06:25] LABS: ANION GAP 9.7 mmol/L (8-16); CALCIUM 8.5 mg/dL (8.5-10.1); CARBON DIOXIDE 31.5 mmol/L (21.0-32.0); CREATININE - SERUM 0.9 mg/dL (0.6-1.3); POTASSIUM - SERUM 4.2 mmol/L (3.5-5.1)
[2017-08-20 07:59] VITALS: BP 123/67
[2017-08-20 11:20] LABS: FUNGUS STAIN Final report (())
[2017-08-20] MEDS ORDERED: CORDARONE200 MG PO (11:30)
[2017-08-20] MEDS ORDERED: COREG 3.1253.125 MG PO (11:30)
[2017-08-20] MEDS ORDERED: LISINOPRIL2.5 MG PO (11:30)
[2017-08-20] MEDS ORDERED: TESSALON PERLE100 MG PO (11:31)
[2017-08-20] MEDS ORDERED: LANTUS INSULIN10 ML SC (11:32)
[2017-08-20] MEDS ORDERED: PREDNISONE10 MG PO (11:32)
[2017-08-20] MEDS ORDERED: LASIX20 MG PO (11:32)
[2017-08-20 12:08] VITALS: BP 139/72
[2017-08-20 17:10] VITALS: BP 136/68
[2017-08-21 15:27] LABS: FUNGUS STAIN RESULT 1 Yeast observed (())
[2017-08-22 15:25] LABS: FUNGUS CULTURE RESULT 1 Candida glabrata (())
[2017-09-12 14:23] LABS: FUNGUS MYCOLOGY CULTURE Final report (())
[2017-10-07 17:11] LABS: ACID FAST CULTURE Negative (()); ACID FAST SMEAR Negative (())
== END 2017-08-20 19:02 | disposition home health service (06) | DRG 246 ==
LOC: D.ER 13:57 → D.M2 15:47 → D.EDHOLD 15:47 → D.M2 17:08 → D.SDCHOLD 08-11 15:59 → D.M2 08-11 15:59 → D.SDCHOLD 08-19 07:41 → D.M2 08-19 07:42
PROVIDERS: Emergency Medicine; Family Medicine; Internal Medicine Interventional Cardiology; Internal Medicine Nephrology; Internal Medicine Pulmonary Disease
PROC: 4A023N7 Measurement of Cardiac Sampling and Pressure, Left Heart, Percutaneous Approach (ICD-10-PCS; 2017-08-11)
PROC: B2121ZZ Fluoroscopy of Single Coronary Artery Bypass Graft using Low Osmolar Contrast (ICD-10-PCS; 2017-08-11)
PROC: B2181ZZ Fluoroscopy of Left Internal Mammary Bypass Graft using Low Osmolar Contrast (ICD-10-PCS; 2017-08-11)
PROC: B2111ZZ Fluoroscopy of Multiple Coronary Arteries using Low Osmolar Contrast (ICD-10-PCS; 2017-08-11)
PROC: B2151ZZ Fluoroscopy of Left Heart using Low Osmolar Contrast (ICD-10-PCS; 2017-08-11)
PROC: 027136Z Dilation of Coronary Artery, Two Arteries with Three Drug-eluting Intraluminal Devices, Percutaneous Approach (ICD-10-PCS; principal; 2017-08-11 10:00)
PROC: 02703ZZ Dilation of Coronary Artery, One Artery, Percutaneous Approach (ICD-10-PCS; 2017-08-12)
PROC: 0B928ZZ Drainage of Carina, Via Natural or Artificial Opening Endoscopic (ICD-10-PCS; 2017-08-15)
PROC: 0B948ZZ Drainage of Right Upper Lobe Bronchus, Via Natural or Artificial Opening Endoscopic (ICD-10-PCS; 2017-08-15)
PROC: 0B988ZZ Drainage of Left Upper Lobe Bronchus, Via Natural or Artificial Opening Endoscopic (ICD-10-PCS; 2017-08-15)
PROC: 0B918ZZ Drainage of Trachea, Via Natural or Artificial Opening Endoscopic (ICD-10-PCS; 2017-08-15)
PROC: 0B938ZZ Drainage of Right Main Bronchus, Via Natural or Artificial Opening Endoscopic (ICD-10-PCS; 2017-08-15)
PROC: 0B978ZZ Drainage of Left Main Bronchus, Via Natural or Artificial Opening Endoscopic (ICD-10-PCS; 2017-08-15)
PROC: 0B968ZZ Drainage of Right Lower Lobe Bronchus, Via Natural or Artificial Opening Endoscopic (ICD-10-PCS; 2017-08-15)
PROC: 0B9B8ZZ Drainage of Left Lower Lobe Bronchus, Via Natural or Artificial Opening Endoscopic (ICD-10-PCS; 2017-08-15)
PROC: 0B998ZZ Drainage of Lingula Bronchus, Via Natural or Artificial Opening Endoscopic (ICD-10-PCS; 2017-08-15)
DX: I21.4 Non-ST elevation (NSTEMI) myocardial infarction (principal); J18.9 Pneumonia, unspecified organism; J96.21 Acute and chronic respiratory failure with hypoxia; I50.21 Acute systolic (congestive) heart failure; B37.1 Pulmonary candidiasis; I69.354 Hemiplegia and hemiparesis following cerebral infarction affecting left non-dominant side; J44.0 Chronic obstructive pulmonary disease with (acute) lower respiratory infection; J44.1 Chronic obstructive pulmonary disease with (acute) exacerbation; N17.9 Acute kidney failure, unspecified; I47.2 Ventricular tachycardia; I25.119 Atherosclerotic heart disease of native coronary artery with unspecified angina pectoris; F41.8 Other specified anxiety disorders; I11.0 Hypertensive heart disease with heart failure; E87.6 Hypokalemia; E78.5 Hyperlipidemia, unspecified; Z95.5 Presence of coronary angioplasty implant and graft; I25.5 Ischemic cardiomyopathy; E11.65 Type 2 diabetes mellitus with hyperglycemia

== ENCOUNTER 2017-08-27 03:56 | Inpatient (IN) | payer MEDICARE ==
[~2017-08-27] VITALS: Ht 172.7 cm; Wt 70.8 kg
--- NOTE | ~2017-08-27 | OP ---
PATIENT NAME: YINKA JACKSON MEDICAL RECORD: [id number] :54 LOCATION:D.MS [id number] ADMISSION DATE:08/27/17 SURGEON: DANIELE QURESHI MD DATE OF OPERATION: 08/29/2017 PREOPERATIVE DIAGNOSIS: L2 and L3 compression fractures secondary to osteoporosis. POSTOPERATIVE DIAGNOSIS: L2 and L3 compression fractures secondary to osteoporosis. PROCEDURE: L2 and L3 kyphoplasty. SURGEON: Daniele Qureshi MD DESCRIPTION OF TECHNIQUE: After induction of general endotracheal anesthesia, the patient was rolled prone on chest and hip rolls. The lumbar spine was prepped and draped in usual sterile fashion. Fluoroscopic x-ray and Jamshidi needle was used to cannulate the pedicles at L2 and L3 under fluoroscopic control. Kyphoplasty balloons were advanced through the needles and inflated under fluoroscopy. The void created was backfilled with methylmethacrylate bone cement. Good position of the cement was confirmed on x-ray on AP and lateral fluoroscopy. The cannula removed and each of stab incision was closed with a single staple. Sterile dressing was applied to both wounds. The patient was awakened in good condition and taken to recovery. All counts were reported as correct. Estimated blood loss was minimal. TRANSINT:[id number] Voice Confirmation ID: [id number] DOCUMENT ID: [id number] DANIELE QURESHI MD at 1427 CC: [id number] DICTATION DATE: 09/02/17 1020 CONCRETE PAVEMENT INSTALLER: 09/02/17 1145 DIS IN 09/02/17 [id number] [place] [address]
[~2017-08-27 03:56] MED LIST changes: +CORDARONE200 MG PO; +COREG 3.1253.125 MG PO; +LISINOPRIL2.5 MG PO; +TESSALON PERLE100 MG PO
[2017-08-27 07:04] LABS: BASOPHILS 0.1 % (0-2); EOSINOPHILS 0.7 % (0-7); HEMATOCRIT 39.3 % (36.0-48.0); HEMOGLOBIN 12.7 g/dL (12-16); IMMATURE GRANULOCYTES 0.5 % (0-5); MCH 27.9 pg (26.0-34.0); MCHC 32.3 g/dL (31.0-37.0); MCV 86.2 fL (80.0-100.0); MEAN PLATELET VOLUME 11.5 fL (7.4-10.4); MONOCYTES 10.7 % (2-11); PLATELET COUNT 175 10x3/uL (130-400); RBC 4.56 10x6/uL (4.00-5.40); RDW 13.9 % (11.5-14.5); WBC 13.4 10x3/uL (4.8-10.8)
[2017-08-27 07:15] LABS: ALBUMIN 2.3 g/dL (3.4-5.0); ALKALINE PHOSPHATASE 147 U/L (46-116); ALT (SGPT) 16 U/L (10-68); CALC OSMOLALITY 297 mosm/kg (275-300); CALCIUM 8.3 mg/dL (8.5-10.1); CARBON DIOXIDE 31.9 mmol/L (21.0-32.0); CHLORIDE - SERUM 108 mmol/L (98-107); CREATININE - SERUM 0.7 mg/dL (0.6-1.3); GLUCOSE 229 mg/dL (74-106); POTASSIUM - SERUM 3.7 mmol/L (3.5-5.1); PROTEIN - SERUM 5.7 g/dL (6.4-8.2); SODIUM 145 mmol/L (136-145); UREA NITROGEN 19 mg/dL (7-18); eGFR NON AFRICAN AMERICAN 89 mL/min (90-120)
[2017-08-27 17:07] VITALS: BP 126/63
[2017-08-27 20:00] VITALS: BP 117/63
[2017-08-27 20:38] LABS: APPEARANCE CLEAR (CLEAR); BILIRUBIN NEGATIVE (NEGATIVE); COLOR YELLOW (YELLOW); GLUCOSE 1000 mg/dL (NEGATIVE); KETONE NEGATIVE (NEGATIVE); NITRITE NEGATIVE (NEGATIVE); PROTEIN TRACE mg/dL (NEGATIVE); SPECIFIC GRAVITY 1.015 (1.005-1.020); UROBILINOGEN NORMAL (NORMAL)
[2017-08-28] VITALS (7 sets, daily range): BP systolic 112–198; BP diastolic 62–85; Ht 172.7 cm; Wt 70.8 kg
[2017-08-28 06:14] LABS: BASOPHILS 0.2 % (0-2); HEMATOCRIT 35.2 % (36.0-48.0); HEMOGLOBIN 11.2 g/dL (12-16); IMMATURE GRANULOCYTES 0.2 % (0-5); LYMPHOCYTES 10.5 % (15-50); MCH 27.9 pg (26.0-34.0); MCHC 31.8 g/dL (31.0-37.0); MCV 87.8 fL (80.0-100.0); MEAN PLATELET VOLUME 11.7 fL (7.4-10.4); MONOCYTES 8.6 % (2-11); NEUTROPHILS 79.5 % (40-80); PLATELET COUNT 141 10x3/uL (130-400); RBC 4.01 10x6/uL (4.00-5.40); RDW 14.2 % (11.5-14.5)
[2017-08-28 06:27] LABS: WBC 5.8 10x3/uL (4.8-10.8)
[2017-08-28 06:38] LABS: ALBUMIN 1.9 g/dL (3.4-5.0); ALKALINE PHOSPHATASE 133 U/L (46-116); ALT (SGPT) 16 U/L (10-68); CALCIUM 7.6 mg/dL (8.5-10.1); CARBON DIOXIDE 30.3 mmol/L (21.0-32.0); CHLORIDE - SERUM 110 mmol/L (98-107); CREATININE - SERUM 0.6 mg/dL (0.6-1.3); POTASSIUM - SERUM 3.8 mmol/L (3.5-5.1); PROTEIN - SERUM 4.9 g/dL (6.4-8.2); SODIUM 147 mmol/L (136-145); UREA NITROGEN 23 mg/dL (7-18); eGFR NON AFRICAN AMERICAN > 90 mL/min (90-120)
[2017-08-28 06:49] LABS: CALC OSMOLALITY 293 mosm/kg (275-300); GLUCOSE 64 mg/dL (74-106)
[2017-08-29] VITALS: BP 132/71
[2017-08-29 04:00] VITALS: BP 140/73
[2017-08-29 05:21] LABS: CALC OSMOLALITY 296 mosm/kg (275-300); CALCIUM 7.9 mg/dL (8.5-10.1); CARBON DIOXIDE 32.8 mmol/L (21.0-32.0); CHLORIDE - SERUM 110 mmol/L (98-107); CREATININE - SERUM 0.6 mg/dL (0.6-1.3); POTASSIUM - SERUM 3.9 mmol/L (3.5-5.1); SODIUM 146 mmol/L (136-145); UREA NITROGEN 22 mg/dL (7-18); eGFR NON AFRICAN AMERICAN > 90 mL/min (90-120)
[2017-08-29 05:23] LABS: GLUCOSE 148 mg/dL (74-106)
[2017-08-29 12:12] VITALS: BP 141/79
[2017-08-29 18:05] VITALS: BP 107/50
[2017-08-29 21:05] VITALS: BP 132/68
[2017-08-30 00:26] VITALS: BP 154/86
[2017-08-30 04:32] VITALS: BP 151/86
[2017-08-30 06:11] LABS: CALCIUM 8.3 mg/dL (8.5-10.1); CARBON DIOXIDE 34.1 mmol/L (21.0-32.0); CHLORIDE - SERUM 106 mmol/L (98-107); CREATININE - SERUM 0.7 mg/dL (0.6-1.3); SODIUM 142 mmol/L (136-145); UREA NITROGEN 19 mg/dL (7-18); eGFR NON AFRICAN AMERICAN 89 mL/min (90-120)
[2017-08-30 06:12] LABS: CALC OSMOLALITY 291 mosm/kg (275-300); GLUCOSE 226 mg/dL (74-106); POTASSIUM - SERUM 4.6 mmol/L (3.5-5.1)
[2017-08-30 07:48] VITALS: BP 140/74
[2017-08-30 12:39] VITALS: BP 141/73
[2017-08-30 16:17] VITALS: BP 139/74
[2017-08-30 23:04] VITALS: BP 149/83
[2017-08-31 04:33] VITALS: BP 169/98
[2017-08-31 06:32] LABS: CALCIUM 8.4 mg/dL (8.5-10.1); CARBON DIOXIDE 39.6 mmol/L (21.0-32.0); CHLORIDE - SERUM 105 mmol/L (98-107); CREATININE - SERUM 0.7 mg/dL (0.6-1.3); SODIUM 146 mmol/L (136-145); eGFR NON AFRICAN AMERICAN 89 mL/min (90-120)
[2017-08-31 06:43] LABS: CALC OSMOLALITY 291 mosm/kg (275-300); GLUCOSE 107 mg/dL (74-106); POTASSIUM - SERUM 3.4 mmol/L (3.5-5.1); UREA NITROGEN 14 mg/dL (7-18)
[2017-08-31 08:42] VITALS: BP 157/82
[2017-08-31 12:45] VITALS: BP 155/85
[2017-08-31 16:35] VITALS: BP 168/85
[2017-08-31 21:12] VITALS: BP 175/98
[2017-09-01] VITALS (7 sets, daily range): BP systolic 119–184; BP diastolic 71–88
[2017-09-01 07:16] LABS: BASOPHILS 0.4 % (0-2); EOSINOPHILS 2.6 % (0-7); HEMATOCRIT 37.3 % (36.0-48.0); HEMOGLOBIN 11.9 g/dL (12-16); IMMATURE GRANULOCYTES 0.4 % (0-5); LYMPHOCYTES 16.2 % (15-50); MCH 27.5 pg (26.0-34.0); MCHC 31.9 g/dL (31.0-37.0); MCV 86.3 fL (80.0-100.0); MEAN PLATELET VOLUME 10.8 fL (7.4-10.4); MONOCYTES 12.8 % (2-11); NEUTROPHILS 67.6 % (40-80); PLATELET COUNT 133 10x3/uL (130-400); RBC 4.32 10x6/uL (4.00-5.40); RDW 13.7 % (11.5-14.5); WBC 7.7 10x3/uL (4.8-10.8)
[2017-09-01 07:26] LABS: CALC OSMOLALITY 282 mosm/kg (275-300); CALCIUM 8.3 mg/dL (8.5-10.1); CARBON DIOXIDE 36.5 mmol/L (21.0-32.0); CHLORIDE - SERUM 106 mmol/L (98-107); CREATININE - SERUM 0.6 mg/dL (0.6-1.3); GLUCOSE 78 mg/dL (74-106); POTASSIUM - SERUM 3.6 mmol/L (3.5-5.1); SODIUM 143 mmol/L (136-145); UREA NITROGEN 11 mg/dL (7-18); eGFR NON AFRICAN AMERICAN > 90 mL/min (90-120)
[2017-09-02 05:14] LABS: BASOPHILS 0.3 % (0-2); EOSINOPHILS 2.3 % (0-7); HEMATOCRIT 33.7 % (36.0-48.0); HEMOGLOBIN 10.8 g/dL (12-16); IMMATURE GRANULOCYTES 0.3 % (0-5); LYMPHOCYTES 17.6 % (15-50); MCH 27.7 pg (26.0-34.0); MCV 86.4 fL (80.0-100.0); MEAN PLATELET VOLUME 11.1 fL (7.4-10.4); MONOCYTES 12.7 % (2-11); NEUTROPHILS 66.8 % (40-80); PLATELET COUNT 133 10x3/uL (130-400); RDW 14.1 % (11.5-14.5); WBC 6.6 10x3/uL (4.8-10.8)
[2017-09-02 05:32] LABS: ALBUMIN 1.8 g/dL (3.4-5.0); ALKALINE PHOSPHATASE 146 U/L (46-116); ALT (SGPT) 19 U/L (10-68); CALCIUM 8.1 mg/dL (8.5-10.1); CARBON DIOXIDE 34.1 mmol/L (21.0-32.0); CHLORIDE - SERUM 108 mmol/L (98-107); CREATININE - SERUM 0.6 mg/dL (0.6-1.3); POTASSIUM - SERUM 3.5 mmol/L (3.5-5.1); PROTEIN - SERUM 4.7 g/dL (6.4-8.2); SODIUM 145 mmol/L (136-145); eGFR NON AFRICAN AMERICAN > 90 mL/min (90-120)
[2017-09-02 05:33] LABS: CALC OSMOLALITY 287 mosm/kg (275-300); GLUCOSE 67 mg/dL (74-106); UREA NITROGEN 16 mg/dL (7-18)
[2017-09-02 05:40] VITALS: BP 120/64
[2017-09-02 09:20] VITALS: BP 108/63
[2017-09-02 13:15] VITALS: BP 127/69
[2017-09-02] MEDS ORDERED: OXYCONTIN10 MG PO (14:45)
[2017-09-02] MEDS ORDERED: COLACE100 MG PO (14:45)
[2017-09-02] MEDS ORDERED: HUMULIN R100 U/ML SC (14:45)
[2017-09-02 17:01] VITALS: BP 134/63; BP 145/72
== END 2017-09-02 18:42 | DRG 516 ==
LOC: D.ER 03:56 → D.EDHOLD 07:12 → D.MS 07:12
PROVIDERS: Family Medicine; Internal Medicine Nephrology; Neurological Surgery
PROC: 0QU03JZ Supplement Lumbar Vertebra with Synthetic Substitute, Percutaneous Approach (ICD-10-PCS; 2017-08-29)
PROC: 0QS03ZZ Reposition Lumbar Vertebra, Percutaneous Approach (ICD-10-PCS; principal; 2017-08-29 13:45)
DX: S32.029A Unspecified fracture of second lumbar vertebra, initial encounter for closed fracture (principal); I50.42 Chronic combined systolic (congestive) and diastolic (congestive) heart failure; I69.354 Hemiplegia and hemiparesis following cerebral infarction affecting left non-dominant side; Z68.1 Body mass index [BMI] 19.9 or less, adult; S32.039A Unspecified fracture of third lumbar vertebra, initial encounter for closed fracture; M54.17 Radiculopathy, lumbosacral region; W18.30XA Fall on same level, unspecified, initial encounter; I11.0 Hypertensive heart disease with heart failure; I08.1 Rheumatic disorders of both mitral and tricuspid valves; E78.5 Hyperlipidemia, unspecified; Z95.1 Presence of aortocoronary bypass graft; Z95.5 Presence of coronary angioplasty implant and graft; J43.9 Emphysema, unspecified; R63.6 Underweight; M85.80 Other specified disorders of bone density and structure, unspecified site; F17.200 Nicotine dependence, unspecified, uncomplicated

== ENCOUNTER 2017-09-02 15:59 | Inpatient (IN) | payer MEDICARE ==
[~2017-09-02] VITALS: Ht 172.7 cm; Wt 65.8 kg
--- NOTE | ~2017-09-02 | RHP ---
PATIENT: YINKA JACKSON MEDICAL RECORD: [id number] ACCOUNT: [id number] LOCATION:[facility] [id number] : 54 ADMISSION DATE: 09/02/17 REHABILITATION HISTORY AND PHYSICAL EXAMINATION POST ADMISSION PHYSICIAN EXAMINATION POST-ADMISSION PHYSICAL EXAMINATION AND HISTORY AND PHYSICAL DATE OF ADMISSION: 09/02/2017 ADMITTING DIAGNOSES: Acute L3 compression fracture and L3-L4 cord compression. HISTORY OF PRESENT ILLNESS: The patient admitted to inpatient rehab with spinal cord dysfunction, traumatic with an acute L3 compression fracture and L3-L4 compression, status post kyphoplasty. She is a 67-year-old female patient with hypertension, hyperlipidemia, coronary artery disease status post coronary artery bypass grafting and stent placement, diabetes, CVA with left hemiparesis, frequent falls and COPD, presented to ER with complaints of left extremity weakness after falling and hitting her head in the bathroom. Imaging showed an acute L3 compression fracture and cord compression. She underwent a kyphoplasty on 08/29/2017 by neurosurgery. She has had a slow recovery, but is getting up and out of bed and ambulate a short distance. She understands the importance of getting up out of bed, states that she also has pneumonia. She is currently on 4 liters of oxygen, is not on oxygen at home. She lives at home with her daughter, is moderately independent with use of rolling walker and independent with ADL. She is currently mod assist to total assist for mobility, set up for max assist with her ADLs. She has been on our acute inpatient rehab before and had a positive outcome and willing to participate in therapy and actually to get her back to her prior level of functioning with her daughter. COMORBIDITIES: In this patient include radiculopathy, functional quadriplegia, combined diastolic, systolic heart failure with EF of 20% to 25%, moderate mitral regurg. She got a history of peripheral vascular disease, history of V-tach, syncope, hypertension, hyperlipidemia, diabetes, frequent falls, underweight, osteopenia, frequent steroid exposure, depression, and anxiety. PAST MEDICAL HISTORY: Significant for CVA, TIA, cataracts, diabetes, hypertension, CHF, CO, coronary artery bypass grafting, syncope, coronary artery disease, history of V-tach, COPD, emphysema, pneumonia, chronic cough, depression, anxiety, tobacco use, kidney stones, UTI, arthritis, osteoporosis, rib fractures, chronic back pain, and menopause. PAST SURGICAL HISTORY: Includes angioplasty with stents. She has had coronary artery bypass grafting, , and knee surgery. ALLERGIES: CIPRO, KEFLEX, BENADRYL, AND SULFA DRUGS. CURRENT MEDICATIONS: Include lisinopril 2.5 mg daily, Lantus 10 units daily, Amaryl 2 mg b.i.d., Lasix 20 mg daily, Lexapro 10 mg daily, Plavix 75 mg daily, carvedilol 3.125 mg b.i.d. with meals, aspirin 325 mg daily, amiodarone 200 mg daily, DuoNeb updrafts, Zofran 4 mg q.4 hours p.r.n., Ventolin updrafts as needed, Oxy-ER 30 mg b.i.d. She is on low resistant sliding scale of insulin, Neurontin 800 mg t.i.d., Colace 100 mg b.i.d., Tessalon Perles 100 mg t.i.d., and MiraLax 17 g in 8 ounces of water daily. HISTORY AND PHYSICAL [id number] YINKA JACKSON HABITS: Does have a history of tobacco use. FAMILY HISTORY: Noncontributory. SOCIAL HISTORY: The patient hopes to return back home with her daughter and get back to her prior level of function. REVIEW OF SYSTEMS: GENERAL: She does not complain of weakness or fatigue. HEENT: Denies cold, cough, or congestion. CARDIOVASCULAR: Denies chest pain. PHYSICAL EXAMINATION: VITAL SIGNS: Stable, afebrile. GENERAL: An elderly female, in no acute distress, alert upon exam. HEENT: Normocephalic and atraumatic. Mucosa moist. NECK: Supple. No lymphadenopathy. LUNGS: Clear at this time. HEART: Regular rate and rhythm. ABDOMEN: Benign. EXTREMITIES: No clubbing. Cyanosis or edema. NEUROLOGIC: She does have noted proximal muscle weakness. LABORATORY DATA: White count is 6.2, H&H of 10.7 and 33.3, and platelet count is 129. Sodium 142, potassium 3.7, BUN and creatinine of 17 and 0.6, and blood sugar is noted to be 124. ASSESSMENT: This is a 67-year-old female patient admitted to rehab with a working diagnosis of a traumatic spinal cord dysfunction, status post kyphoplasty. The patient has potential to make improvement. We instituted the following multidisciplinary therapies including, but not limited to physical, occupational, respiratory, speech, nutritional services, prosthetics and orthotics. Given her competition risk for more complications, rehabilitation services cannot be provided at a low level of care such as fdc facility. PLAN: 1. Admit to [facility] for intensive inpatient therapy to include the following disciplines: A. Physical therapy to improve gait, all transfer skills and bed mobility to a modified independent level. B. Occupational therapy to improve activities of daily living to a modified independent level. C. Case management to assist with discharge planning and placement options. D. Nutrition to assist with nutritional needs. E. Rehabilitation nursing to assist in monitoring the patient's underlying medical conditions and to assist with any type of bowel or bladder management. 2. The patient's current medication and medical care will be continued. 3. The patient will be placed on standard fall precautions. 4. The patient's estimated length of stay is approximately 7-10 days. 5. Discuss this patient during care team staff meeting this week. TRANSINT:[id number] Voice Confirmation ID: [id number] DOCUMENT ID: [id number] HISTORY AND PHYSICAL [id number] YINKA JACKSON notes whether there has been none or any medical/functional change since admission: - No change since preadmission screen. [place] attests patient continues to be appropriate for IRF: - Continues to be appropriate. ANDREY FRANCISCO MD at 1405 CC: [id number] DICTATION DATE: 09/03/17815 ON SITE SERVICES SPECIALIST: 09/03/17 0957 ADM IN [facility] [address] [id number]
[~2017-09-02 15:59] MED LIST changes: +COLACE100 MG PO; +OXYCONTIN10 MG PO
[2017-09-02 19:27] VITALS: BP 108/55
[2017-09-02 19:48] VITALS: BP 108/55; BMI 22.1
[2017-09-03 07:00] LABS: BASOPHILS 0.2 % (0-2); EOSINOPHILS 2.9 % (0-7); HEMATOCRIT 33.3 % (36.0-48.0); HEMOGLOBIN 10.7 g/dL (12-16); IMMATURE GRANULOCYTES 0.3 % (0-5); LYMPHOCYTES 16.9 % (15-50); MCH 27.9 pg (26.0-34.0); MCHC 32.1 g/dL (31.0-37.0); MCV 86.7 fL (80.0-100.0); MEAN PLATELET VOLUME 11.3 fL (7.4-10.4); MONOCYTES 14.1 % (2-11); NEUTROPHILS 65.6 % (40-80); PLATELET COUNT 129 10x3/uL (130-400); RBC 3.84 10x6/uL (4.00-5.40); RDW 13.9 % (11.5-14.5); WBC 6.2 10x3/uL (4.8-10.8)
[2017-09-03 07:15] LABS: CALC OSMOLALITY 285 mosm/kg (275-300); CALCIUM 8.2 mg/dL (8.5-10.1); CARBON DIOXIDE 35.3 mmol/L (21.0-32.0); CHLORIDE - SERUM 104 mmol/L (98-107); CREATININE - SERUM 0.6 mg/dL (0.6-1.3); GLUCOSE 124 mg/dL (74-106); POTASSIUM - SERUM 3.7 mmol/L (3.5-5.1); SODIUM 142 mmol/L (136-145); UREA NITROGEN 17 mg/dL (7-18); eGFR NON AFRICAN AMERICAN > 90 mL/min (90-120)
[2017-09-03 07:38] VITALS: BP 111/63
[2017-09-03 11:45] VITALS: BP 82/41
[2017-09-03 11:51] VITALS: BP 93/47
[2017-09-03 15:14] VITALS: Ht 172.7 cm; Wt 65.8 kg
[2017-09-03 15:31] VITALS: BP 98/52
[2017-09-03 15:39] LABS: BASOPHILS 0.1 % (0-2); EOSINOPHILS 2.3 % (0-7); HEMATOCRIT 32.8 % (36.0-48.0); HEMOGLOBIN 10.4 g/dL (12-16); IMMATURE GRANULOCYTES 0.3 % (0-5); LYMPHOCYTES 14.8 % (15-50); MCH 27.7 pg (26.0-34.0); MCHC 31.7 g/dL (31.0-37.0); MCV 87.2 fL (80.0-100.0); MEAN PLATELET VOLUME 11.3 fL (7.4-10.4); MONOCYTES 14.5 % (2-11); PLATELET COUNT 124 10x3/uL (130-400); RBC 3.76 10x6/uL (4.00-5.40); WBC 6.8 10x3/uL (4.8-10.8)
[2017-09-03 15:47] VITALS: BP 115/68
[2017-09-03 15:47] LABS: CALC OSMOLALITY 280 mosm/kg (275-300); CARBON DIOXIDE 35.2 mmol/L (21.0-32.0); CHLORIDE - SERUM 104 mmol/L (98-107); GLUCOSE 100 mg/dL (74-106); POTASSIUM - SERUM 3.7 mmol/L (3.5-5.1); SODIUM 140 mmol/L (136-145); UREA NITROGEN 18 mg/dL (7-18); eGFR NON AFRICAN AMERICAN 76 mL/min (90-120)
[2017-09-03 15:49] LABS: CREATININE - SERUM 0.8 mg/dL (0.6-1.3)
[2017-09-03 19:00] VITALS: BP 127/65
[2017-09-04 07:52] VITALS: BP 139/70
[2017-09-04 19:00] VITALS: BP 111/50
[2017-09-05 05:51] LABS: BASOPHILS 0.4 % (0-2); EOSINOPHILS 2.7 % (0-7); HEMATOCRIT 33.5 % (36.0-48.0); HEMOGLOBIN 10.5 g/dL (12-16); IMMATURE GRANULOCYTES 0.2 % (0-5); LYMPHOCYTES 21.5 % (15-50); MCH 27.2 pg (26.0-34.0); MCHC 31.3 g/dL (31.0-37.0); MCV 86.8 fL (80.0-100.0); MEAN PLATELET VOLUME 11.1 fL (7.4-10.4); MONOCYTES 18.4 % (2-11); NEUTROPHILS 56.8 % (40-80); PLATELET COUNT 144 10x3/uL (130-400); RBC 3.86 10x6/uL (4.00-5.40); WBC 5.5 10x3/uL (4.8-10.8)
[2017-09-05 06:29] LABS: CALC OSMOLALITY 291 mosm/kg (275-300); CALCIUM 7.8 mg/dL (8.5-10.1); CARBON DIOXIDE 33.7 mmol/L (21.0-32.0); CHLORIDE - SERUM 108 mmol/L (98-107); CREATININE - SERUM 0.8 mg/dL (0.6-1.3); GLUCOSE 98 mg/dL (74-106); POTASSIUM - SERUM 3.3 mmol/L (3.5-5.1); SODIUM 146 mmol/L (136-145); UREA NITROGEN 14 mg/dL (7-18); eGFR NON AFRICAN AMERICAN 76 mL/min (90-120)
[2017-09-05 08:19] VITALS: BP 162/89
[2017-09-05 17:51] VITALS: BP 129/62
[2017-09-05 19:00] VITALS: BP 137/64
[2017-09-06 08:57] VITALS: BP 142/76
[2017-09-06 20:49] VITALS: BP 127/64
[2017-09-07 19:35] VITALS: BP 157/79
[2017-09-08 06:36] LABS: BASOPHILS 0.4 % (0-2); EOSINOPHILS 1.6 % (0-7); HEMATOCRIT 33.7 % (36.0-48.0); HEMOGLOBIN 10.7 g/dL (12-16); IMMATURE GRANULOCYTES 1.6 % (0-5); MCH 27.3 pg (26.0-34.0); MCHC 31.8 g/dL (31.0-37.0); MEAN PLATELET VOLUME 10.6 fL (7.4-10.4); MONOCYTES 17.6 % (2-11); NEUTROPHILS 63.8 % (40-80); PLATELET COUNT 167 10x3/uL (130-400); RBC 3.92 10x6/uL (4.00-5.40); WBC 4.9 10x3/uL (4.8-10.8)
[2017-09-08 06:58] LABS: CALC OSMOLALITY 280 mosm/kg (275-300); CARBON DIOXIDE 32.1 mmol/L (21.0-32.0); CHLORIDE - SERUM 104 mmol/L (98-107); CREATININE - SERUM 0.6 mg/dL (0.6-1.3); GLUCOSE 103 mg/dL (74-106); POTASSIUM - SERUM 3.9 mmol/L (3.5-5.1); SODIUM 141 mmol/L (136-145); UREA NITROGEN 13 mg/dL (7-18); eGFR NON AFRICAN AMERICAN > 90 mL/min (90-120)
[2017-09-08 08:00] VITALS: BP 130/65
[2017-09-08 19:00] VITALS: BP 121/67
[2017-09-09 08:33] VITALS: BP 139/61
[2017-09-09 19:00] VITALS: BP 100/58
[2017-09-10 07:37] VITALS: BP 146/74
[2017-09-10 16:18] VITALS: BP 122/62
[2017-09-10 19:00] VITALS: BP 146/56
[2017-09-11 05:31] LABS: BASOPHILS 0.6 % (0-2); EOSINOPHILS 2.1 % (0-7); HEMATOCRIT 32.5 % (36.0-48.0); HEMOGLOBIN 10.3 g/dL (12-16); MCH 27.3 pg (26.0-34.0); MCHC 31.7 g/dL (31.0-37.0); MCV 86.2 fL (80.0-100.0); MONOCYTES 16.3 % (2-11); PLATELET COUNT 170 10x3/uL (130-400); RBC 3.77 10x6/uL (4.00-5.40); RDW 14.3 % (11.5-14.5); WBC 4.9 10x3/uL (4.8-10.8)
[2017-09-11 05:39] LABS: CALC OSMOLALITY 284 mosm/kg (275-300); CALCIUM 8.1 mg/dL (8.5-10.1); CARBON DIOXIDE 35.7 mmol/L (21.0-32.0); CHLORIDE - SERUM 107 mmol/L (98-107); CREATININE - SERUM 0.8 mg/dL (0.6-1.3); GLUCOSE 107 mg/dL (74-106); POTASSIUM - SERUM 3.9 mmol/L (3.5-5.1); SODIUM 143 mmol/L (136-145); UREA NITROGEN 12 mg/dL (7-18); eGFR NON AFRICAN AMERICAN 76 mL/min (90-120)
[2017-09-11 08:05] VITALS: BP 134/74
[2017-09-11 19:16] VITALS: BP 108/56
[2017-09-12 08:48] VITALS: BP 143/79
[2017-09-12 19:00] VITALS: BP 136/65
[2017-09-13 08:19] VITALS: BP 143/66
[2017-09-13 20:32] VITALS: BP 154/77
[2017-09-14 07:45] VITALS: BP 154/79
[2017-09-14 20:20] VITALS: BP 115/58
[2017-09-15 08:34] VITALS: BP 162/83
[2017-09-15 19:00] VITALS: BP 139/67
[2017-09-16 06:30] LABS: BASOPHILS 0.5 % (0-2); EOSINOPHILS 1.5 % (0-7); HEMATOCRIT 32.9 % (36.0-48.0); HEMOGLOBIN 10.1 g/dL (12-16); IMMATURE GRANULOCYTES 1.2 % (0-5); LYMPHOCYTES 27.1 % (15-50); MCH 26.4 pg (26.0-34.0); MCHC 30.7 g/dL (31.0-37.0); MCV 85.9 fL (80.0-100.0); MEAN PLATELET VOLUME 10.1 fL (7.4-10.4); MONOCYTES 13.8 % (2-11); NEUTROPHILS 55.9 % (40-80); RBC 3.83 10x6/uL (4.00-5.40); RDW 14.3 % (11.5-14.5); WBC 6.6 10x3/uL (4.8-10.8)
[2017-09-16 06:31] LABS: PLATELET COUNT 219 10x3/uL (130-400)
[2017-09-16 06:54] LABS: ANION GAP 9.2 mmol/L (8-16); CARBON DIOXIDE 32.6 mmol/L (21.0-32.0); POTASSIUM - SERUM 3.8 mmol/L (3.5-5.1)
[2017-09-16 08:00] VITALS: BP 146/80
[2017-09-16 19:00] VITALS: BP 125/58
[2017-09-17 08:00] VITALS: BP 157/89
[2017-09-17 19:00] VITALS: BP 152/73
[2017-09-18 08:00] VITALS: BP 133/66
[2017-09-18 19:00] VITALS: BP 154/72
[2017-09-19 06:20] LABS: BASOPHILS 0.3 % (0-2); EOSINOPHILS 1.7 % (0-7); HEMATOCRIT 33.9 % (36.0-48.0); HEMOGLOBIN 10.7 g/dL (12-16); IMMATURE GRANULOCYTES 0.3 % (0-5); LYMPHOCYTES 24.8 % (15-50); MCH 26.8 pg (26.0-34.0); MCHC 31.6 g/dL (31.0-37.0); MCV 84.8 fL (80.0-100.0); MEAN PLATELET VOLUME 9.7 fL (7.4-10.4); MONOCYTES 13.8 % (2-11); NEUTROPHILS 59.1 % (40-80); PLATELET COUNT 236 10x3/uL (130-400); RDW 14.5 % (11.5-14.5); WBC 6.4 10x3/uL (4.8-10.8)
[2017-09-19 06:34] LABS: CALC OSMOLALITY 286 mosm/kg (275-300); CALCIUM 8.7 mg/dL (8.5-10.1); CARBON DIOXIDE 32.4 mmol/L (21.0-32.0); CHLORIDE - SERUM 106 mmol/L (98-107); CREATININE - SERUM 0.7 mg/dL (0.6-1.3); GLUCOSE 113 mg/dL (74-106); POTASSIUM - SERUM 3.8 mmol/L (3.5-5.1); SODIUM 144 mmol/L (136-145); UREA NITROGEN 11 mg/dL (7-18); eGFR NON AFRICAN AMERICAN 89 mL/min (90-120)
[2017-09-19 08:27] VITALS: BP 155/82
[2017-09-19 19:00] VITALS: BP 111/59
[2017-09-20 06:41] VITALS: BP 125/66
[2017-09-20 15:54] VITALS: BP 116/64
[2017-09-20 19:40] VITALS: BP 97/48
[2017-09-21 08:19] VITALS: BP 109/61
[2017-09-21 19:33] VITALS: BP 107/53
[2017-09-22 06:53] LABS: BASOPHILS 0.5 % (0-2); EOSINOPHILS 1.3 % (0-7); HEMATOCRIT 33.2 % (36.0-48.0); HEMOGLOBIN 10.2 g/dL (12-16); IMMATURE GRANULOCYTES 0.7 % (0-5); LYMPHOCYTES 18.4 % (15-50); MCH 27.1 pg (26.0-34.0); MCHC 30.7 g/dL (31.0-37.0); MCV 88.3 fL (80.0-100.0); MEAN PLATELET VOLUME 10.3 fL (7.4-10.4); MONOCYTES 16.2 % (2-11); NEUTROPHILS 62.9 % (40-80); PLATELET COUNT 223 10x3/uL (130-400); RBC 3.76 10x6/uL (4.00-5.40); RDW 15.1 % (11.5-14.5); WBC 7.5 10x3/uL (4.8-10.8)
[2017-09-22 07:09] LABS: ANION GAP 10.2 mmol/L (8-16); CALCIUM 8.7 mg/dL (8.5-10.1); CARBON DIOXIDE 32.6 mmol/L (21.0-32.0); POTASSIUM - SERUM 3.8 mmol/L (3.5-5.1)
[2017-09-22 08:00] VITALS: BP 117/51
[2017-09-22] MEDS ORDERED: PERCOCET 10/3251 TA1 PO (08:25)
[2017-09-22] MEDS ORDERED: K-TAB10 MEQ PO (08:25)
== END 2017-09-22 10:45 | DRG 559 ==
LOC: D.REHAB 15:59
PROVIDERS: Emergency Medicine; Family Medicine
DX: S32.039D Unspecified fracture of third lumbar vertebra, subsequent encounter for fracture with routine healing (principal); R53.2 Functional quadriplegia; I69.354 Hemiplegia and hemiparesis following cerebral infarction affecting left non-dominant side; I50.40 Unspecified combined systolic (congestive) and diastolic (congestive) heart failure; Z66 Do not resuscitate; S34.104D Unspecified injury to L4 level of lumbar spinal cord, subsequent encounter; E78.5 Hyperlipidemia, unspecified; Z95.1 Presence of aortocoronary bypass graft; Z95.5 Presence of coronary angioplasty implant and graft; E11.9 Type 2 diabetes mellitus without complications; J44.9 Chronic obstructive pulmonary disease, unspecified; I11.0 Hypertensive heart disease with heart failure; I34.0 Nonrheumatic mitral (valve) insufficiency; R55 Syncope and collapse; M85.80 Other specified disorders of bone density and structure, unspecified site; F41.8 Other specified anxiety disorders

== ENCOUNTER 2017-10-12 18:20 | Emergency (ER) | payer MEDICARE ==
[~2017-10-12] VITALS: Ht 172.7 cm; Wt 63.6 kg
[~2017-10-12 18:20] MED LIST changes: +K-TAB10 MEQ PO; +PERCOCET 10/3251 TA1 PO
[2017-10-12 18:24] VITALS: Ht 172.7 cm; Wt 63.6 kg
[2017-10-12 19:41] LABS: APPEARANCE CLEAR (CLEAR); BILIRUBIN NEGATIVE (NEGATIVE); COLOR YELLOW (YELLOW); GLUCOSE NEGATIVE (NEGATIVE); KETONE NEGATIVE (NEGATIVE); NITRITE NEGATIVE (NEGATIVE); PROTEIN 1+ mg/dL (NEGATIVE); UROBILINOGEN NORMAL (NORMAL)
[2017-10-12 19:42] LABS: WHITE CELLS - URINE 0-5 /hpf (0-5)
[2017-10-12 19:43] LABS: BACTERIA FEW /hpf (NONE SEEN); EPITHELIAL CELLS 0-5 /hpf (0-5)
[2017-10-12 22:32] VITALS: BP 147/82
== END 2017-10-12 22:50 ==
LOC: D.ER 18:20
PROVIDERS: Emergency Medicine
DX: M54.5 Low back pain (principal); Z98.890 Other specified postprocedural states; W19.XXXA Unspecified fall, initial encounter; Y93.89 Activity, other specified; Y92.019 Unspecified place in single-family (private) house as the place of occurrence of the external cause; E11.9 Type 2 diabetes mellitus without complications; Z86.79 Personal history of other diseases of the circulatory system